=== PATIENT | female | born 1970 | race Caucasian/White ===

== ENCOUNTER 2021-03-25 18:53 | Emergency (ER) | payer MEDICAID, SELFPAY ==
--- NOTE | ~2021-03-25 | XR_ITS ---
EXAMINATION: XR FOOT, LEFT CLINICAL INFORMATION: Pain status post injury COMPARISON: None TECHNIQUE: AP, lateral, and oblique views of the left foot. FINDINGS: The bones and soft tissues are normal. No fracture. Alignment is anatomic. Joint spaces are maintained. XR/XR foot LT min 3V IMPRESSION: No evidence of an acute osseous injury.
[2021-03-25 22:05] VITALS: BP 157/90; PULSE 78; RESP 16; TEMP 36.9; O2SAT 98; BMI 26.7
--- NOTE | 2021-03-25 23:14 | ED_ITS ---
HPI - Extremity Injury (Lower) General Chief Complaint: Extremity Injury, Lower Stated Complaint: Toe injury Time Seen by Provider: 03/25/21 22:48 Source: patient Mode of arrival: ambulatory Limitations: no limitations History of Present Illness HPI Narrative: Patient presents to ED for left pinky toe pain since hitting against against object last week. Patient states toes erythematous with a dry wound. Patient denies any fever, chills, or elevation in glucose. Related Data Previous Rx's Medication Instructions Recorded cephalexin 500 mg capsule 500 mg PO QID #28 cap 03/25/21 doxycycline hyclate 100 mg tablet 100 mg PO BID #14 tab 03/25/21 Allergies Allergy/AdvReac Type Severity Reaction Status Date / Time No Known Allergies Allergy Verified 03/25/21 22:07 Review of Systems Constitutional: Constitutional: Reports as per HPI and Reports no additional constitutional complaints Eyes: Eyes: Reports as per HPI and Reports no additional eye complaints ENT: Reports system reviewed and no additional complaints, except as documented and Reports as per HPI Cardiovascular: Cardiovascular: Reports as per HPI and Reports no additional cardiovascular complaints Respiratory: Respiratory: Reports as per HPI and Reports no additional respiratory complaints Gastrointestinal: Gastrointestinal: Reports as per HPI and Reports no additional gastrointestinal complaints Genitourinary: Genitourinary: Reports no additional female genitourinary complaints and Reports as per HPI Musculoskeletal: Musculoskeletal: Reports no additional musculoskeletal compla ints and Reports as per HPI Comments: Left pinky pain Psychiatric: Psychiatric: Reports no additional psychiatric complaints and Reports as per HPI [facility] Social History Social History Advance Directives: No Advance Directives Information Provided: No Patient : No Physical Exam Vital Signs: Vital Signs: Last Vital Signs Temp 98.5 F 03/25/21 22:05 Pulse 78 03/25/21 22:05 Resp 16 03/25/21 22:05 BP 157/90 H 03/25/21 22:05 Pulse Ox 98 03/25/21 22:05 Body Mass Index 26.7 Const: General: cooperative, healthy appearing, comfortable, no acute distress, well developed, alert, awake and Physically active Orientation/consciousness: patient oriented x3 HENMT: Head: Yes normal to inspection, Yes No palpable skull fracture present, Yes normocephalic and Yes atraumatic Eyes: General: appearance normal, both eyes and all related structures Neck: Neck: Yes normal visual inspection, Yes full ROM, Yes no lymphade nopathy, Yes no meningeal signs, Yes trachea midline, Yes supple and No tender Chest: Chest palpation & inspection: normal inspection of the chest and normal palpation of entire chest wall Resp: Effort & Inspection: normal respiratory effort and able to speak in complete sentences Auscultation: clear to auscultation bilaterally Cardio: Jugular venous distension: no JVD Heart sounds: S1 normal heart sound present and S2 normal heart sound present GI: Inspection: Yes normal to inspection and No abdominal wall ecchymosis Palpation (GI): Soft to palpation, not firm, nontender, no guarding and not rig id : General: No CVA tenderness and Yes no CVA tenderness Back/Spine/Pelvis: Back: no CVA tenderness, No CVA tenderness and No back tenderness Skin: General skin exam: no rashes or lesions noted and elasticity normal Neuro: General: patient oriented x3, gait normal, no meningeal signs and CN's II-XI intact bilaterally Cranial nerves: Yes CN's II-XII intact bilaterally Extrem: General: Yes normal to inspection and Yes full ROM Ankle/foot/toe images: 1. erythema with dry ulcer/Wound negative for any pus discharge or foul odor. Vascular/motor/neuro exam intact Psych: Appearance: grossly normal, well kempt and not disheveled Course Course Course Narrative: Patient will be sent for x-rays for rule out fracture osteomyelitis. Reevaluation(s) Reevaluation #1: Vital signs are stable. No indication for labs. X-ray negative for fracture or osteo. Patient will be discharged with antibiotics informed to follow-up with wound clinic tomorrow Time: 23:20 MDM - Extremity Injury (Lower) MDM Narrative Medical decision making narrative: cellulitis Discharge Plan Discharge Clinical Impression: Cellulitis, Non-healing non-surgical wound Patient Disposition: Home, Self-Care Instructions: Cellulitis (ED) Additional Instructions: x-ray came back negative for fracture or osteomyelitis. Due to redness around toe and history of diabetes will be discharged with antibiotics. Recommend follow-up and call tomorrow with wound clinic. Please call the clinic. Return to the ED for any fever, chills, elevated glucose, worsening redness, pus discharge, foul odor, fever, chills, or any other concerning symptoms. Prescriptions: New cephalexin 500 mg capsule 500 mg PO QID Qty: 28 RF: 0 doxycycline hyclate 100 mg tablet 100 mg PO BID Qty: 14 RF: 0 Referrals: [facility] [Provider Group] - 2 days ( Please call tomorrow for follow-up with wound clinic.) Interventions: ED Discharge Assessment Last Done: 03/26/21 00:23 Discharge Date/Time: 03/26/21 00:53 Print Language: Upper Sorbian
== END 2021-03-26 00:53 | disposition home or self-care (01) ==
PROVIDERS: Emergency Provider Student in an Organized Health Care Education/Training Program
DX: L03.032 Cellulitis of left toe (principal); Z79.899 Other long term (current) drug therapy
CPT/HCPCS: 73630; 99283

== ENCOUNTER 2021-04-04 13:36 | Outpatient (RCR) | payer MEDICAID, SELFPAY | END 2021-08-15 15:07 | disposition home or self-care (01) | LOC: HO.WCC 13:36 | PROVIDERS: Visit Provider Surgery | DX: E11.621 Type 2 diabetes mellitus with foot ulcer (principal); S97.122D Crushing injury of left lesser toe(s), subsequent encounter; I70.292 Other atherosclerosis of native arteries of extremities, left leg; L60.2 Onychogryphosis; G40.909 Epilepsy, unspecified, not intractable, without status epilepticus; I10 Essential (primary) hypertension; F17.210 Nicotine dependence, cigarettes, uncomplicated | CPT/HCPCS: 97597; 99212; 99213 ==

== ENCOUNTER 2021-06-11 13:57 | Outpatient (REF) | payer MEDICAID, SELFPAY ==
--- NOTE | ~2021-06-11 | US_ITS ---
EXAMINATION: COLOR-FLOW DUPLEX IMAGING OF THE UNILATERAL LEFT LOWER EXTREMITY ARTERIAL SYSTEM. VELOCITY MEASUREMENTS THROUGHOUT THE FEMORAL ARTERIES WITH ANKLE-BRACHIAL PERIPHERAL ARTERIAL TESTING. Interventional Radiologist: Aaron Trevino M.D., F.S.I.R., F.A.C.R. CLINICAL INFORMATION: This a 51-year-old female with left leg wound. Peripheral arterial disease. TECHNIQUE: Color-flow duplex imaging with spectral waveform analysis was performed. Velocity measurement was obtained. LEFT FEMORAL RUNOFF VELOCITIES: The left common femoral artery measures 152 cm/s and biphasic. The left profunda femoral artery is 108 cm/s and is monophasic. Left proximal superficial femoral artery measures 79 cm/s and monophasic. Mid superficial femoral artery is 43 cm/s and monophasic. Distal left superficial femoral artery measures 32 cm/s and is monophasic. Left popliteal velocity measures 39 cm/s and is monophasic. The posterior tibial artery velocity measures 32 cm/s and was monophasic. The left ankle-brachial index is 0.59. The waveforms appear flattened. The left dorsalis pedis was in audible. The right ankle-brachial index is 1.01. US/US arterial duplex LE LT IMPRESSION: 1. Abnormal peripheral arterial testing with abnormal left ankle-brachial index and velocity measurements. 2. There is hemodynamically significant diffuse disease in the left superficial femoral artery extending downward with a decreased ankle-brachial index.
--- NOTE | ~2021-06-11 | US_ITS ---
EXAMINATION: COLOR-FLOW DUPLEX IMAGING OF THE UNILATERAL LEFT LOWER EXTREMITY ARTERIAL SYSTEM. VELOCITY MEASUREMENTS THROUGHOUT THE FEMORAL ARTERIES WITH ANKLE-BRACHIAL PERIPHERAL ARTERIAL TESTING. Interventional Radiologist: Aaron Trevino M.D., F.S.I.R., F.A.C.R. CLINICAL INFORMATION: This a 51-year-old female with left leg wound. Peripheral arterial disease. TECHNIQUE: Color-flow duplex imaging with spectral waveform analysis was performed. Velocity measurement was obtained. LEFT FEMORAL RUNOFF VELOCITIES: The left common femoral artery measures 152 cm/s and biphasic. The left profunda femoral artery is 108 cm/s and is monophasic. Left proximal superficial femoral artery measures 79 cm/s and monophasic. Mid superficial femoral artery is 43 cm/s and monophasic. Distal left superficial femoral artery measures 32 cm/s and is monophasic. Left popliteal velocity measures 39 cm/s and is monophasic. The posterior tibial artery velocity measures 32 cm/s and was monophasic. The left ankle-brachial index is 0.59. The waveforms appear flattened. The left dorsalis pedis was in audible. The right ankle-brachial index is 1.01. US/US KEREN complete IMPRESSION: 1. Abnormal peripheral arterial testing with abnormal left ankle-brachial index and velocity measurements. 2. There is hemodynamically significant diffuse disease in the left superficial femoral artery extending downward with a decreased ankle-brachial index.
== END 2021-06-11 13:58 | disposition home or self-care (01) ==
LOC: HO.US 13:57
PROVIDERS: Visit Provider Surgery
DX: I70.245 Atherosclerosis of native arteries of left leg with ulceration of other part of foot (principal); S97.1 Crushing injury of toe
CPT/HCPCS: 93923; 93926

== ENCOUNTER → 2021-06-28 09:26 | Outpatient (BNVA) | payer MEDICAID, SELFPAY | PROVIDERS: PCP General Practice; Visit Provider Surgery Vascular Surgery | DX: I73.9 Peripheral vascular disease, unspecified (principal) | CPT/HCPCS: 99202 ==

== ENCOUNTER 2021-07-04 06:57 | Day surgery (SDC) | payer MEDICAID, SELFPAY ==
[2021-07-04] VITALS (8 sets, daily range): BP systolic 107–126; BP diastolic 54–71; PULSE 71–83; RESP 16–18; TEMP 36.3–37.2; O2SAT 97–100; BMI 26.8
[2021-07-04 07:48] LABS: Glucose, Whole Blood 141 mg/dL (60-115)
[2021-07-04 08:02] LABS: MANUAL DIFF FLAG NO
[2021-07-04 08:12] LABS: Basophils Percent Auto 0.3 % (0-2); Eosinophils Absolute Auto 0.3 X10*3/uL (0.0-0.4); Eosinophils Percent Auto 4.2 % (0-4); Hematocrit 37.3 % (37.0-47.0); Hemoglobin 12.4 g/dl (12.0-16.0); Imm Gran Abs Auto 0.02 X10*3/uL (0.00-0.03); Imm Gran Pct Auto 0.3 % (0.0-0.4); Mean Corpuscular HGB Conc 33.2 g/dl (31.0-35.0); Mean Corpuscular Hemoglobin 31.6 pg (27.0-33.0); Mean Corpuscular Volume 95.2 fL (80.0-98.0); Mean Platelet Volume 11.1 fL (9.4-12.3); Monocytes Absolute Auto 0.5 X10*3/uL (0.1-1.2); Monocytes Percent Auto 7.6 % (2-11); Neutrophils Absolute Auto 4.1 x10*3/uL (2.0-8.3); Neutrophils Percent Auto 58.6 % (45-73); Platelet Count 179 X10*3/uL (160-400); Red Blood Count 3.92 X10*6/uL (4.20-5.50); Red Cell Distribution Width 13.3 % (11.0-16.0); White Blood Count 6.9 X10*3/uL (4.8-10.8)
[2021-07-04 08:20] LABS: Blood Urea Nitrogen 18 mg/dL (9-16); Creatinine Clr Calc Pharmacy 51.3; Estimated Glomerular Filt Rate 60
[2021-07-04] MEDS: 0.9 % Sodium Chloride 1,000 ML 100 ML IVCONT (08:23)
--- NOTE | 2021-07-04 11:28 | P.OP_ITS ---
Operative Note Operative Note Date of Service: 07/04/21 Narrative: Angiogram report from [facility] Preoperative diagnosis: Atherosclerosis of left lower extremity with nonhealing ulcer Postoperative diagnosis: Same Procedure: 1. Ultrasound-guided right common femoral access 2. Aortogram with left lower extremity runoff 3. Left SFA atherectomy and stent Surgeon:Brendon Franco M.D., FACS, RPVI Tower Supervisor:None Anesthesia: Local with moderate conscious sedation. Total intraservice moderate sedation time was 60 minutes. I monitored the patient's level of consciousness and physiologic status continuously throughout the procedure. Specimens:none Drains:none Estimated blood loss: Less than 10 ml Implant: VV 3 Protege Everflex 5 x 80 Indications: Very pleasant 51-year-old female with a nonhealing left lower extremity ulcer. She was found by the [facility] to have peripheral vascular disease. She now presents for endovascular intervention The patient has signed the informed consent after reviewing risks, complications, benefits, and alternatives previously discussed with the patient. The patient was given the opportunity to ask any additional questions or voice any concerns. All questions were answered to the patient's satisfaction. Procedure in detail: Patient was brought to the angiography suite prior to which a time-out was called for patient identification and site verification. Bilateral groins were prepped and draped in the standard surgical fashion. Under ultrasound guidance right common femoral was punctured with micro puncture needle and wire. Subsequently a precision 4 Chinese sheath was then placed. Bentson wire was advanced to the level of the aorta. 4 Chinese Flush catheter was brought up and parked at the level of the renal arteries. Aortogram was then undertaken. Catheter was brought down to the level of the iliac bifurcation. Iliacs were subsequently imaged. Catheter was then brought in up and over to the left side SFA. Runoff study was then undertaken. At this time there was a mid to distal SFA total occlusion at recognized. 4000 units of systemic heparin was administered. After 5 minutes of circulation time up and over 6 Chinese sheath was then placed. We were able to traverse the lesion with an 035 glidewire Advantage wire. Once this was accomplished we then advanced a now be cross catheter. Once across we then flushed contrast through to in short true lumen. At this time we exchanged out for a spider FX wire 5 Chinese. We then performed 5 Chinese atherectomy in the left distal SFA. Multiple unidirectional passes were undertaken. There was still some residual stenosis noted. Once this was accomplished we then plasty this with a 5 x 80 balloon. We subsequently placed a 5 x 80 stent which was self expanding. Completion angiogram was undertaken. Excellent result was achieved. Catheter wire sheath was brought back to the ipsilateral side. StarClose closure device was then deployed. Interpretation of films: 1. Ultrasound demonstrates appropriate femoral puncture. Image of which was saved. 2. Aortogram demonstrates appropriate caliber aorta. Minimal disease. Appropriate take-off of the renals. 3. Iliac images demonstrate mild tortuosity very small caliber 4. Left Leg Common femoral artery: No significant disease Profundus Femoris: No significant disease Superficial femoral artery: Proximal 2/3 was patent then a total occlusion with reconstitution at the above knee popliteal Popliteal artery (p1,p2,p3): Patent Anterior tibial artery: Patent Peroneal artery: Present but very small in caliber and diminutive Posterior tibial artery: Patent Dorsalis pedis/plantar arch: Incomplete Conclusion: 1. Successful atherectomy and stent of left SFA 2. Anticoagulation status: Will require 6 months of aspirin and Plavix This note is constructed using voice recognition software. While every effort has been made to ensure accuracy, senior data integration developer errors may have been included. Thank you for allowing me to participate in the care of your patient. Yours sincerely, Brendon Franco MD, FACS, R.P.V.I.
== END 2021-07-04 13:30 | disposition home or self-care (01) ==
PROVIDERS: Visit Provider Surgery Vascular Surgery
DX: E11.51 Type 2 diabetes mellitus with diabetic peripheral angiopathy without gangrene (principal); L97.529 Non-pressure chronic ulcer of other part of left foot with unspecified severity; I70.245 Atherosclerosis of native arteries of left leg with ulceration of other part of foot; Z79.84 Long term (current) use of oral hypoglycemic drugs; I10 Essential (primary) hypertension; F41.1 Generalized anxiety disorder; R56.9 Unspecified convulsions; E78.00 Pure hypercholesterolemia, unspecified; F17.210 Nicotine dependence, cigarettes, uncomplicated; Z79.899 Other long term (current) drug therapy
CPT/HCPCS: 36415; 37226; 37227; 76937; 82565; 82947; 84520; 85025; 99152; 99153; C1714; C1725; C1760; C1769; C1876; C1884; C1887; J2250; J3010; Q9967

== ENCOUNTER 2021-12-06 14:57 | Outpatient (REF) | payer MEDICAID, SELFPAY ==
--- NOTE | ~2021-12-06 | US_ITS ---
EXAMINATION: US abdominal wall, LIMITED/FOLLOW UP CLINICAL INFORMATION: Palpable mass COMPARISON: CT of the abdomen and pelvis October 2010 TECHNIQUE: Grayscale and color imaging of the anterior abdominal wall the right lower quadrant was performed using a linear transducer. FINDINGS: Palpable abnormality corresponds to 3 calcified lesions measuring 1.9 x 0.9 x 0.9 cm, 0.8 cm and 0.5 cm in the superficial abdominal wall subcutaneous fat just deep to the skin. This is a new finding compared to previous CT from 2010 US/US pelvic limited IMPRESSION: Palpable abnormality corresponds to 3 calcified masses in the subcutaneous fat of the anterior abdominal wall, largest measuring 1.3 x 0.9 x 0.9 cm. This is a new finding from previous CT of the abdomen and pelvis from 2010. This may represent postsurgical change or fat necrosis. Correlation with patient's clinical history i.e. has there been previous surgery in this region recommended. This could be further evaluated with CT if clinically indicated.
== END 2021-12-06 14:58 | disposition home or self-care (01) ==
LOC: HO.US 14:57
PROVIDERS: Visit Provider General Practice
DX: R22.2 Localized swelling, mass and lump, trunk (principal)
CPT/HCPCS: 76857

== ENCOUNTER → 2022-01-10 12:24 | Outpatient (BNVA) | payer MEDICAID, SELFPAY | PROVIDERS: PCP General Practice; Referring Provider General Practice; Visit Provider Surgery | DX: R10.9 Unspecified abdominal pain (principal); I73.9 Peripheral vascular disease, unspecified; R22.9 Localized swelling, mass and lump, unspecified; R56.9 Unspecified convulsions; I10 Essential (primary) hypertension; E11.9 Type 2 diabetes mellitus without complications; F17.200 Nicotine dependence, unspecified, uncomplicated; Z79.02 Long term (current) use of antithrombotics/antiplatelets | CPT/HCPCS: 99202 ==

== ENCOUNTER 2022-01-18 08:53 | Outpatient (REF) | payer MEDICAID, SELFPAY ==
--- NOTE | ~2022-01-18 | CT_ITS ---
EXAMINATION: CT ABDOMEN AND PELVIS WITHOUT CONTRAST CLINICAL INFORMATION: Abdominal pain. COMPARISON: None. TECHNIQUE: Multidetector volumetric imaging was performed from the superior aspect of the liver through the pubic symphysis with oral contrast. Sagittal and coronal reformatted images were obtained on the technologist's workstation. This CT examination was performed using dose optimization techniques as appropriate, variously including the following: *Automated exposure control *Adjustment of mA and/or kV according to patient size (this includes techniques or standardized protocols for targeted exams where dose is matched to indication/reason for exam; i.e. extremities or head) *Use of iterative reconstruction technique DLP: 491 mGy-cm FINDINGS: LUNG BASES: The visualized lung bases are unremarkable. LIVER, GALLBLADDER, AND BILIARY TREE: The liver is normal in size, shape, and attenuation. No focal hepatic lesion or biliary ductal dilatation is present. The gallbladder is unremarkable with no evidence of radiopaque gallstones, gallbladder wall thickening, or obvious pericholecystic inflammatory changes. PANCREAS: Unremarkable. SPLEEN: Unremarkable. ADRENAL GLANDS: Unremarkable. KIDNEYS AND URETERS: The kidneys are normal in size, shape, and attenuation. No hydronephrosis, hydroureter, or calculi seen. No perinephric stranding. BLADDER: Unremarkable. GASTROINTESTINAL TRACT: There is a large amount of stool seen in the colon without significant distention. The appendix is normal caliber. Oral contrast opacified small bowel loops are normal. The stomach is nondistended. ABDOMINAL WALL: Small umbilical hernia containing fat. LYMPH NODES: Normal. VASCULAR: Unremarkable. PELVIC VISCERA: There is a 4.9 x 3.5 cm lesion of the right adnexa measuring 9.78 Hounsfield units, likely ovarian cyst. There is no free fluid in the pelvis. The uterus is retroverted. OSSEOUS STRUCTURES: Mild facet joint degenerative changes at L4-L5 disc level with moderate hypertrophy. CT/CT abdomen pelvis wo con IMPRESSION: Moderate sized right adnexal cyst, likely ovarian origin. Mild constipation. No obstruction seen. Fleischner guidelines were followed.
== END 2022-01-18 08:54 | disposition home or self-care (01) ==
LOC: HO.CT 08:53
PROVIDERS: Visit Provider Surgery
DX: R10.9 Unspecified abdominal pain (principal); F17.200 Nicotine dependence, unspecified, uncomplicated
CPT/HCPCS: 74176

== ENCOUNTER → 2022-01-31 13:44 | Outpatient (BNVA) | payer MEDICAID, SELFPAY | PROVIDERS: PCP General Practice; Visit Provider Surgery | DX: R10.2 Pelvic and perineal pain (principal); R22.2 Localized swelling, mass and lump, trunk; I10 Essential (primary) hypertension; E11.9 Type 2 diabetes mellitus without complications; Z79.01 Long term (current) use of anticoagulants | CPT/HCPCS: 99212 ==

== ENCOUNTER → 2022-04-02 10:11 | Outpatient (BNVA) | payer MEDICAID, SELFPAY | PROVIDERS: PCP General Practice; Visit Provider Nurse Practitioner Family | DX: Z12.11 Encounter for screening for malignant neoplasm of colon (principal) | CPT/HCPCS: 99202 ==

== ENCOUNTER 2023-01-09 15:56 | Inpatient (IN) | payer MEDICAID, SELFPAY ==
--- NOTE | ~2023-01-09 | US_ITS ---
EXAMINATION: US ABDOMEN LIMITED CLINICAL INFORMATION: Right upper quadrant pain. COMPARISON: None available. TECHNIQUE: Real-time imaging of the right upper quadrant abdominal viscera. FINDINGS: GALLBLADDER: Normal. The gallbladder is physiologically distended without evidence of stones, sludge, polyps, wall thickening or pericholecystic fluid. COMMON BILE DUCT: Normal in caliber measuring 0.2 cm in diameter. Partially imaged liver appears echogenic suggestive of hepatic steatosis or underlying liver disease. This could be further characterized with a dedicated right upper quadrant ultrasound if clinically indicated. US/US abdomen limited IMPRESSION: No cholelithiasis or evidence of acute cholecystitis. Partially imaged liver appears echogenic suggestive of hepatic steatosis or underlying liver disease. This could be further characterized with a dedicated right upper quadrant ultrasound if clinically indicated.
--- NOTE | ~2023-01-09 | CT_ITS ---
EXAMINATION: CT ABDOMEN AND PELVIS WITHOUT CONTRAST CLINICAL INFORMATION: Abdominal pain. COMPARISON: Abdominal ultrasound dated 01/09/2023; CT abdomen and pelvis dated 02/18/2022. TECHNIQUE: Multidetector volumetric imaging was performed from the superior aspect of the liver through the pubic symphysis. Sagittal and coronal reformatted images were obtained on the technologist's workstation. This CT examination was performed using dose optimization techniques as appropriate, variously including the following: *Automated exposure control *Adjustment of mA and/or kV according to patient size (this includes techniques or standardized protocols for targeted exams where dose is matched to indication/reason for exam; i.e. extremities or head) *Use of iterative reconstruction technique DLP: 405 mGy-cm FINDINGS: LUNG BASES: The visualized lung bases are unremarkable. LIVER, GALLBLADDER, AND BILIARY TREE: The liver is normal in size and shape. There is geographic hepatic steatosis. No focal hepatic lesion or biliary ductal dilatation is present. The gallbladder is unremarkable, with no evidence of radiopaque gallstones, gallbladder wall thickening or obvious pericholecystic inflammatory change. PANCREAS: There is interim appearance of circumferential pancreatic fat stranding and possible trace acute peripancreatic fluid. No focal pancreatic mass or ductal dilatation are seen. SPLEEN: Unremarkable. ADRENAL GLANDS: Unremarkable. KIDNEYS AND URETERS: The kidneys are normal in size, shape, and attenuation. No hydronephrosis, hydroureter, or calculi seen. No perinephric stranding. BLADDER: Unremarkable. GASTROINTESTINAL TRACT: The small and large bowel are unremarkable. The appendix is unremarkable. ABDOMINAL WALL: There is a small fat-containing umbilical hernia. LYMPH NODES: Normal. VASCULAR: There is mild aortoiliac atherosclerotic calcification. No abdominal aortic aneurysm is seen. PELVIC VISCERA: The uterus and left ovary are unremarkable. The right ovary contains a 4.9 x 3.0 x 3.9 cm simple appearing cyst with precontrast Hounsfield value of 8.6 units (3:61 and 6:62). OSSEOUS STRUCTURES: There is mild degenerative disc disease at L4-L5. No acute or aggressive osseous abnormality is seen. CT/CT abdomen pelvis wo IV con IMPRESSION: 1. Findings are consistent with acute pancreatitis, with vigorous peripheral pancreatic fat stranding and slight acute fluid collections. There is no mass or ductal dilatation. No pseudocyst formation is seen. No focal pancreatic necrosis is seen with certainty on imaging performed without the benefit of intravenous contrast. 2. There is geographic hepatic steatosis. 3. No bowel obstruction, free intraperitoneal air or abscess is seen. There is no appendicitis or diverticulitis. 4. There is no urinary calculus or obstructive uropathy. 5. A 4.9 cm simple right ovarian cyst is seen. This is a benign finding in the physiologic size range and requires no imaging follow-up. 6. There is mild degenerative disc disease at L4-L5. No acute or aggressive osseous lesion is seen. Fleischner guidelines were followed.
[2023-01-09 15:58] VITALS: PULSE 109; RESP 30; TEMP 36.6; O2SAT 99
--- NOTE | 2023-01-09 15:59 | ECG_ITS ---
Test Reason : WEAKNESS Blood Pressure : / mmHG Vent. Rate : 087 BPM Atrial Rate : 087 BPM P-R Int : 160 ms QRS Dur : 062 ms QT Int : 370 ms P-R-T Axes : 073 019 047 degrees QTc Int : 445 ms Normal sinus rhythm Possible Left atrial enlargement Septal infarct , age undetermined Abnormal ECG When compared with ECG of 07-AUG-2003 14:34, Septal infarct is now Present Referred By: Dimitri Haji Electronically Signed By:Otf Miller
--- NOTE | 2023-01-09 16:01 | ED.GENADULT ---
HPI - General Adult General Chief complaint: Seizure Stated complaint: abd pain vomiting Time Seen by Provider: 01/09/23 18:00 Source: patient and family Mode of arrival: ambulatory History of Present Illness HPI narrative: 52-year-old female who is a known diabetic and has hypertension as well as a history of seizures arrives and history is provided primarily by her significant other who states that she has been having abdominal pain and vomiting for the past 2-3 days, he denies any fevers or chills, she is lethargic and does not provide much history other than having right-sided pain. Patient is also had 3 seizures today and takes Dilantin. Related Data Home Medications Medication Instructions Recorded Confirmed albuterol sulfate 90 mcg/actuation 2 puff PO Q4H PRN Wheezing 07/04/21 04/02/22 aerosol inhaler (ProAir HFA) fluticasone propionate 110 1 puff inhalation BID 07/04/21 04/02/22 mcg/actuation HFA aerosol inhaler (Flovent HFA) gabapentin 100 mg capsule 1 cap PO BID 07/04/21 04/02/22 lisinopril 10 1 tab PO DAILY 07/04/21 04/02/22 mg-hydrochlorothiazide 12.5 mg tablet metformin 500 mg tablet 1 tab PO BID 07/04/21 04/02/22 phenytoin sodium extended 100 mg 1 cap PO Q8H 07/04/21 04/02/22 capsule sertraline 50 mg tablet 1 tab PO DAILY 07/04/21 04/02/22 omeprazole 20 mg capsule,delayed 20 mg PO DAILY 04/02/22 04/02/22 release atorvastatin 40 mg tablet 40 mg PO DAILY 01/09/23 ibuprofen 600 mg tablet 600 mg PO Q6-8H PRN low back pain 01/09/23 multivitamin (One Daily 1 tab PO DAILY 01/09/23 Multivitamin tablet) Allergies Allergy/AdvReac Type Severity Reaction Status Date / Time No Known Allergies Allergy Verified 01/09/23 16:08 Review of Systems Review of Systems: Pertinent positives and negatives as stated in HPI [facility] Past Medical History Source: nursing notes reviewed Medical History Anxiety Diabetes Hypercholesteremia Hypertension Seizures Surgical History H/O skin graft Social History Social History Alcohol intake: never Patient Tobacco Use Status: Current everyday Tobacco user Cigarettes Per Day: 2 Years Smoked: 5 years Smoked in Last 30 Days: No Use of substances other than those prescribed or required for medical reasons: No Advance Directives: No Advance Directives Information Provided: Yes Patient : No Physical Exam ED Vital Signs: Vital Signs - 24 hr 01/09/23 15:58 01/09/23 17:46 Temperature 98 F 97.9 F Pulse Rate 109 H 73 Respiratory Rate 30 H 12 Blood Pressure 143/76 H Pulse Oximetry 99 98 Oxygen Delivery Method Room Air Room Air BMI result Body Mass Index 30.0 VITAL SIGNS: Reviewed. GENERAL: Well developed, well nourished, in moderate distress. HEAD: Normocephalic/atraumatic EYES: PERRLA, EOMI EARS: Ext canals without abnormality NOSE: Nares patent bilateral OROPHARYNX: no oral lesions noted, posterior pharynx clear, dry mucosa NECK: Supple, no adenopathy LUNGS: Normal breath sounds. No adventitious sounds or accessory muscle use. SpO2<98> CARDIOVASCULAR: Regular rate and rhythm without noted murmurs ABDOMEN: Soft, non-tender, non-distended with bowel sounds. No rigidity. No guarding. No palpable masses or hernias noted MUSCULOSKELETAL: No tenderness, deformities, or effusions noted on gross inspection. EXTREMITIES: No cyanosis, clubbing or edema. SKIN: Inspection of the skin reveals no rashes, ulcerations, jaundice, pallor, or petechiae. NEUROLOGIC: Alert and oriented x 4. Strength and sensation to light touch were grossly intact x 4. Course Course Course Narrative: This is an RME: Additional HPI, ROS, PE not included below will be deferred to primary provider. 52 year old female hx of PAD, DM, HTN , SZS on phenytoin presenting w/ sever abdominal pain RLQ X1 week worsening over the past three days. Comes into triage stating shes having a seizure w/ tonic clonic movements but answering questions. Reports med compliance with phenytoin. Patient is screaming the wheel chair and stating shes in terrible pain Spoke to charge who will try to bring patient back when beds become available When labs resulted again spoke to charge and asked for patient to go back ? DKA Medications Administered Generic Name Dose Route Start Last Admin Trade Name Freq PRN Reason Stop Dose Admin Sodium Chloride 1,632.93 mls @ 1,632.93 mls/hr 01/09/23 18:36 01/09/23 18:46 Ns 30 ml/kg infuse over 1 hr (1632.93 ml) 01/09/23 19:35 1,632.93 mls/hr IV Administration .Q1H STA Discontinued Medications Generic Name Dose Route Start Last Admin Trade Name Freq PRN Reason Stop Dose Admin Piperacillin Sod/Tazobactam 50 mls @ 100 mls/hr 01/09/23 18:37 01/09/23 19:01 Sod 3.375 gm/ Sodium Chloride IV 01/09/23 19:06 100 mls/hr ONCE ONE Administration Lorazepam 2 mg 01/09/23 15:58 01/09/23 16:05 Lorazepam 1 Mg Tablet PO 01/09/23 15:59 2 mg ONCE ONE Administration Morphine Sulfate 4 mg 01/09/23 16:03 01/09/23 18:44 Morphine Sulfate 4 Mg/Ml Cartridge IVPUSH 01/09/23 16:04 Not Given ONCE ONE Protocol Medical Decision Making Medical Decision Making [facility] Narrative: 1809: 32-year-old female with history and clinical presentation most concerning for DKA, profound dehydration and suspicion for cholangitis with associated pancreatitis. Some delay in obtaining venous access due to current medical states but ultrasound peripheral IV was successfully obtained in the right upper extremity. Initiated normal saline boluses, Zosyn, lactic acid and blood cultures have been sent. Morphine and Ativan were discontinued, patient was noted to be significantly hypokalemic so with holding insulin at this time and will focus on repletion of potassium prior to initiation of the insulin as well as focusing on rehydration. 1858: I discussed the case with the regulatory affairs analyst who accepts admission, understands that we are holding the insulin at this time and focusing on potassium repletion and rehydration in addition to obtaining an ultrasound of the right upper quadrant. I reviewed all investigations and my interpretation is that patient has profound DKA with dehydration and pancreatitis, significant other at bedside states that patient has known gallstones so suspect biliary pancreatitis, there is a mild leukocytosis that I suspect may be more related with dehydration state as patient is afebrile. Patient also has obvious AYANNA with hypokalemia Differential Diagnosis Cholecystitis, cholangitis, DKA, HHS, gastroenteritis. Admission/Observation Consideration of admission/observation: Escalation of care including admission/observation considered Consult Healthcare Provider Management of the patient was discussed with: Clinical Research Nurse Coordinator Please see the discussion above Lab Data Please see the discussion above 01/09/23 16:58 01/09/23 16:58 Labs: Lab Results 01/09/23 01/09/23 01/09/23 Range/Units 16:19 16:57 16:58 WBC (4.8-10.8) X10*3/uL RBC (4.20-5.50) X10*6/uL Hgb (12.0-16.0) g/dl Hct (37.0-47.0) % MCV (80.0-98.0) fL MCH (27.0-33.0) pg MCHC (31.0-35.0) g/dl RDW (11.0-16.0) % Plt Count (160-400) X10*3/uL MPV (9.4-12.3) fL Immature Gran % (Auto) (0.0-0.4) % Neut % (Auto) (45-73) % Lymph % (Auto) (20-40) % [place] % (Auto) (2-11) % Eos % (Auto) (0-4) % Baso % (Auto) (0-2) % Lymph # (Auto) (1.2-4.9) X10*3/uL [place] # (Auto) (0.1-1.2) X10*3/uL Eos # (Auto) (0.0-0.4) X10*3/uL Baso # (Auto) (0.0-0.2) X10*3/uL Abs Immat Gran (auto) (0.00-0.03) X10*3/uL Absolute Neuts (auto) (2.0-8.3) x10*3/uL Absolute Nucleated RBC (0.0-0.012) X10*3/uL Nucleated RBC % (auto) (0.0-0.2) /100WBC Sodium 127 L (135-145) mmol/L Potassium 2.7 L (3.3-5.1) mmol/L Chloride 91 L (96-108) mmol/L Carbon Dioxide 18 L (22-29) mmol/L Anion Gap 21 H (12-20) BUN 19 H (9-16) mg/dL Creatinine 1.45 H (0.5-1.4) mg/dL Estim Creat Clear Calc 28.2 Estimated GFR 38 Random Glucose 701 H* (60-115) mg/dL Lactic Acid 2.6 H* (0.5-2.0) mmol/L Calcium 10.3 H (8.4-10.2) mg/dL Magnesium 2.3 (1.6-2.6) mg/dL Total Bilirubin 0.4 (0.0-1.0) mg/dL AST 22 (5-31) U/L ALT 24 (0-31) U/L Alkaline Phosphatase 146 H (39-117) U/L Total Creatine Kinase 91 (26-140) U/L Total Protein 8.6 H (6.5-8.0) g/dL Albumin 4.3 (3.5-5.0) g/dL Lipase 844 H (8-78) U/L Beta HCG, Quant mIU/mL Urine Color Urine Appearance Urine pH (5.0-9.0) Ur Specific [place] (1.005-1.025) Urine Protein (Neg-Trace) mg/dL Urine Glucose (UA) (Negative) mg/dL Urine Ketones (Negative) mg/dL Urine Blood (Negative) Urine Nitrite (Negative) Ur Leukocyte Esterase (Negative) Urine RBC (0-2) /HPF Urine WBC (0-5) /HPF Ur Squamous Epith Cells (0-2) /HPF Urine Bacteria (None Seen) Hyaline Casts (0-2) /LPF Urine Opiates Screen (Not Detect) Urine Fentanyl Screen (Not Detect) Ur Barbiturates Screen (Not Detect) Ur Phencyclidine Scrn (Not Detect) Ur Amphetamines Screen (Not Detect) U Benzodiazepines Scrn (Not Detect) Urine Cocaine Screen (Not Detect) U Marijuana (THC) Screen (Not Detect) Ethyl Alcohol mg/dL B-Hydroxybutyrate (0.02-0.27) mmol/L COVID-19 (RENEE) Negative (Negative) COVID-19 Clin Com See Note 01/09/23 01/09/23 01/09/23 Range/Units 16:58 16:59 16:59 WBC 12.1 H (4.8-10.8) X10*3/uL RBC 3.86 L (4.20-5.50) X10*6/uL Hgb 11.8 L (12.0-16.0) g/dl Hct 32.9 L (37.0-47.0) % MCV 85.2 (80.0-98.0) fL MCH 30.6 (27.0-33.0) pg MCHC 35.9 H (31.0-35.0) g/dl RDW 12.3 (11.0-16.0) % Plt Count 240 D (160-400) X10*3/uL MPV 11.6 (9.4-12.3) fL Immature Gran % (Auto) 0.6 H (0.0-0.4) % Neut % (Auto) 82.5 H (45-73) % Lymph % (Auto) 11.9 L (20-40) % [place] % (Auto) 4.6 (2-11) % Eos % (Auto) 0.1 (0-4) % Baso % (Auto) 0.3 (0-2) % Lymph # (Auto) 1.4 (1.2-4.9) X10*3/uL [place] # (Auto) 0.6 (0.1-1.2) X10*3/uL Eos # (Auto) 0.0 (0.0-0.4) X10*3/uL Baso # (Auto) 0.0 (0.0-0.2) X10*3/uL Abs Immat Gran (auto) 0.07 H (0.00-0.03) X10*3/uL Absolute Neuts (auto) 10.0 H (2.0-8.3) x10*3/uL Absolute Nucleated RBC 0.000 (0.0-0.012) X10*3/uL Nucleated RBC % (auto) 0.0 (0.0-0.2) /100WBC Sodium (135-145) mmol/L Potassium (3.3-5.1) mmol/L Chloride (96-108) mmol/L Carbon Dioxide (22-29) mmol/L Anion Gap (12-20) BUN (9-16) mg/dL Creatinine (0.5-1.4) mg/dL Estim Creat Clear Calc Estimated GFR Random Glucose (60-115) mg/dL Lactic Acid (0.5-2.0) mmol/L Calcium (8.4-10.2) mg/dL Magnesium 2.4 (1.6-2.6) mg/dL Total Bilirubin (0.0-1.0) mg/dL AST (5-31) U/L ALT (0-31) U/L Alkaline Phosphatase (39-117) U/L Total Creatine Kinase (26-140) U/L Total Protein (6.5-8.0) g/dL Albumin (3.5-5.0) g/dL Lipase (8-78) U/L Beta HCG, Quant 7 mIU/mL Urine Color Urine Appearance Urine pH (5.0-9.0) Ur Specific [place] (1.005-1.025) Urine Protein (Neg-Trace) mg/dL Urine Glucose (UA) (Negative) mg/dL Urine Ketones (Negative) mg/dL Urine Blood (Negative) Urine Nitrite (Negative) Ur Leukocyte Esterase (Negative) Urine RBC (0-2) /HPF Urine WBC (0-5) /HPF Ur Squamous Epith Cells (0-2) /HPF Urine Bacteria (None Seen) Hyaline Casts (0-2) /LPF Urine Opiates Screen (Not Detect) Urine Fentanyl Screen (Not Detect) Ur Barbiturates Screen (Not Detect) Ur Phencyclidine Scrn (Not Detect) Ur Amphetamines Screen (Not Detect) U Benzodiazepines Scrn (Not Detect) Urine Cocaine Screen (Not Detect) U Marijuana (THC) Screen (Not Detect) Ethyl Alcohol < 10 mg/dL B-Hydroxybutyrate 3.01 H (0.02-0.27) mmol/L COVID-19 (RENEE) (Negative) COVID-19 Clin Com 01/09/23 01/09/23 Range/Units 17:22 17:22 WBC (4.8-10.8) X10*3/uL RBC (4.20-5.50) X10*6/uL Hgb (12.0-16.0) g/dl Hct (37.0-47.0) % MCV (80.0-98.0) fL MCH (27.0-33.0) pg MCHC (31.0-35.0) g/dl RDW (11.0-16.0) % Plt Count (160-400) X10*3/uL MPV (9.4-12.3) fL Immature Gran % (Auto) (0.0-0.4) % Neut % (Auto) (45-73) % Lymph % (Auto) (20-40) % [place] % (Auto) (2-11) % Eos % (Auto) (0-4) % Baso % (Auto) (0-2) % Lymph # (Auto) (1.2-4.9) X10*3/uL [place] # (Auto) (0.1-1.2) X10*3/uL Eos # (Auto) (0.0-0.4) X10*3/uL Baso # (Auto) (0.0-0.2) X10*3/uL Abs Immat Gran (auto) (0.00-0.03) X10*3/uL Absolute Neuts (auto) (2.0-8.3) x10*3/uL Absolute Nucleated RBC (0.0-0.012) X10*3/uL Nucleated RBC % (auto) (0.0-0.2) /100WBC Sodium (135-145) mmol/L Potassium (3.3-5.1) mmol/L Chloride (96-108) mmol/L Carbon Dioxide (22-29) mmol/L Anion Gap (12-20) BUN (9-16) mg/dL Creatinine (0.5-1.4) mg/dL Estim Creat Clear Calc Estimated GFR Random Glucose (60-115) mg/dL Lactic Acid (0.5-2.0) mmol/L Calcium (8.4-10.2) mg/dL Magnesium (1.6-2.6) mg/dL Total Bilirubin (0.0-1.0) mg/dL AST (5-31) U/L ALT (0-31) U/L Alkaline Phosphatase (39-117) U/L Total Creatine Kinase (26-140) U/L Total Protein (6.5-8.0) g/dL Albumin (3.5-5.0) g/dL Lipase (8-78) U/L Beta HCG, Quant mIU/mL Urine Color Yellow Urine Appearance Clear Urine pH 6.5 (5.0-9.0) Ur Specific [place] >= 1.030 H (1.005-1.025) Urine Protein 30 (1+) H (Neg-Trace) mg/dL Urine Glucose (UA) >=1000 H (Negative) mg/dL Urine Ketones 15 (Negative) mg/dL Urine Blood Negative (Negative) Urine Nitrite Negative (Negative) Ur Leukocyte Esterase Negative (Negative) Urine RBC 0-2 (0-2) /HPF Urine WBC 0-5 (0-5) /HPF Ur Squamous Epith Cells 0-2 (0-2) /HPF Urine Bacteria None Seen (None Seen) Hyaline Casts 0-2 (0-2) /LPF Urine Opiates Screen Not Detected (Not Detect) Urine Fentanyl Screen Not Detected (Not Detect) Ur Barbiturates Screen POSITIVE H (Not Detect) Ur Phencyclidine Scrn Not Detected (Not Detect) Ur Amphetamines Screen Not Detected (Not Detect) U Benzodiazepines Scrn Not Detected (Not Detect) Urine Cocaine Screen Not Detected (Not Detect) U Marijuana (THC) Screen POSITIVE H (Not Detect) Ethyl Alcohol mg/dL B-Hydroxybutyrate (0.02-0.27) mmol/L COVID-19 (RENEE) (Negative) COVID-19 Clin Com Independent Interpretation I performed an independent interpretation of an: EKG Interpretation: Normal sinus rhythm, HR-87, no STEMI, SC/QRS/QTC are within normal limits. Independent Historian Clinical information obtained from an independent historian. History obtained from or confirmed by: Spouse External Record Review External record reviewed: Office record, Outpatient record and Prior outpatient labs Chronic Conditions Patient?s care impacted by: Diabetes and Hypertension Critical Care Time Critical Care Time Critical Care Time: Yes Total Critical Care Time: 45 Attestation: I personally attest to this time spent taking care of the patient. Discharge Plan Discharge Clinical Impression: DKA (diabetic ketoacidosis), Biliary acute pancreatitis, Hypokalemia, Dehydration Patient Disposition: Admitted As Inpatient
[2023-01-09] MEDS: LORazepam 1 MG TABLET 2 MG PO (16:05)
--- NOTE | 2023-01-09 16:09 | MHC.EDTECH ---
pt currently vomiting and uncontrollably shaking in triage. unable to perform EKG and blood work at this time. grinder operator external tool aware
[2023-01-09 17:06] LABS: MANUAL DIFF FLAG NO
[2023-01-09 17:09] LABS: Basophils Percent Auto 0.3 % (0-2); Eosinophils Percent Auto 0.1 % (0-4); Hematocrit 32.9 % (37.0-47.0); Hemoglobin 11.8 g/dl (12.0-16.0); Imm Gran Abs Auto 0.07 X10*3/uL (0.00-0.03); Imm Gran Pct Auto 0.6 % (0.0-0.4); Lymphocytes Absolute Auto 1.4 X10*3/uL (1.2-4.9); Lymphocytes Percent Auto 11.9 % (20-40); Mean Corpuscular HGB Conc 35.9 g/dl (31.0-35.0); Mean Corpuscular Hemoglobin 30.6 pg (27.0-33.0); Mean Corpuscular Volume 85.2 fL (80.0-98.0); Mean Platelet Volume 11.6 fL (9.4-12.3); Monocytes Absolute Auto 0.6 X10*3/uL (0.1-1.2); Monocytes Percent Auto 4.6 % (2-11); Neutrophils Percent Auto 82.5 % (45-73); Platelet Count 240 X10*3/uL (160-400); Red Blood Count 3.86 X10*6/uL (4.20-5.50); Red Cell Distribution Width 12.3 % (11.0-16.0); White Blood Count 12.1 X10*3/uL (4.8-10.8)
[2023-01-09 17:25] LABS: Ethanol < 10 mg/dL
[2023-01-09 17:28] LABS: Appearance Urine Clear; Color Urine Yellow; Glucose Urine UA >=1000 mg/dL (Negative); Leukocyte Esterase Urine Negative (Negative); Nitrite Urine Negative (Negative); PH 6.5 (5.0-9.0); Specific Gravity - Urine >= 1.030 (1.005-1.025); UMIC TRIGGER UACC YES; Urine Blood Negative (Negative); Urine Ketones 15 mg/dL (Negative); Urine Protein 30 (1+) mg/dL (Neg-Trace)
[2023-01-09 17:28] LABS: COVID-19 Test Negative (Negative); IDNOW Serial# BCCEAD1C
[2023-01-09 17:33] LABS: Bacteria Urine None Seen (None Seen); Hyaline Casts Urine 0-2 /LPF (0-2); RBC Urine 0-2 /HPF (0-2); Squamous Epithelial Cell Urine 0-2 /HPF (0-2); WBC Urine 0-5 /HPF (0-5)
[2023-01-09 17:34] LABS: Lactic Acid 2.6 mmol/L (0.5-2.0)
[2023-01-09 17:34] LABS: HCG Quantitative 7 mIU/mL
[2023-01-09 17:35] LABS: Alanine Aminotransferase 24 U/L (0-31); Albumin Level 4.3 g/dL (3.5-5.0); Alkaline Phosphatase 146 U/L (39-117); Anion Gap 21 (12-20); Aspartate Amino Transferase 22 U/L (5-31); Bilirubin Total 0.4 mg/dL (0.0-1.0); Blood Urea Nitrogen 19 mg/dL (9-16); Calcium 10.3 mg/dL (8.4-10.2); Carbon Dioxide 18 mmol/L (22-29); Chloride 91 mmol/L (96-108); Creatinine Clr Calc Pharmacy 28.2; Estimated Glomerular Filt Rate 38; Glucose Random 701 mg/dL (60-115); Magnesium 2.3 mg/dL (1.6-2.6); Potassium 2.7 mmol/L (3.3-5.1); Sodium 127 mmol/L (135-145); Total Protein 8.6 g/dL (6.5-8.0)
[2023-01-09 17:39] LABS: Lipase 844 U/L (8-78)
[2023-01-09 17:46] VITALS: BP 143/76; PULSE 73; RESP 12; TEMP 36.6; O2SAT 98
[2023-01-09 17:52] LABS: Amphetamine Screen Urine Not Detected (Not Detect); Barbiturates, Urine POSITIVE (Not Detect); Benzodiazepines Screen Urine Not Detected (Not Detect); Cannabinoid Screen Urine POSITIVE (Not Detect); Cocaine Screen Urine Not Detected (Not Detect); Fentanyl, urine Not Detected (Not Detect); Opiate Screen Urine Not Detected (Not Detect); Phencyclidine Screen Urine Not Detected (Not Detect)
[2023-01-09 18:29] LABS: Beta-Hydroxybutyrate 3.01 mmol/L (0.02-0.27); Magnesium 2.4 mg/dL (1.6-2.6)
[2023-01-09] MEDS: 0.9 % Sodium Chloride 1,632.93 ML 1632.93 ML IV (18:46)
[2023-01-09] MEDS: Piperacillin Sodium/Tazobactam 3.375 GM in 0.9 % Sodium Chloride 50 ML IV (19:01)
--- NOTE | 2023-01-09 19:01 | PC.NURSE ---
provider to bedside for ultrasound iv, pt difficult stick. access gained 20 RAC, fluids/antibiotics infusing per the mar. provider held insulin to replenish potassium at this time. pt arousable to verbal and painful stimuli. ultrasound at beside.
--- NOTE | 2023-01-09 19:03 | PC.NURSE ---
fluids infusing on pressure bag.
[2023-01-09 19:06] LABS: Reflex Lactate? Lactic Acid Added
[2023-01-09] MEDS: ondansetron HCL 4 MG/2 ML VIAL IVPUSH (19:22)
--- NOTE | 2023-01-09 19:42 | PHA.MEDREC ---
Pharmacy Consult ? Medication Reconciliation Pharmacy has completed the medication reconciliation.Pt unable to confirm her name for the lead quality control technician taking her to [place] and her family member doesn't know what medications she takes. He states that she only gets medications filled with [facility] so I used claim history to complete med rec. I am concerned that she hasn't had dilantin filled since 10/11 when she got a 30 day supply so she may have been out of the dilantin for a while but that was the only medication name that her family member knew and states she takes daily so it was included in the home med list. I am going to notify provider of this concern.
[2023-01-09] MEDS: KCl 40 mEq in 0.9 % Sodium Chl 40 MEQ/1,000 ML IV.SOLN 250 MEQ IV (19:55)
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
[2023-01-09 19:57] LABS: Glucose, Whole Blood 523 mg/dL (60-115)
--- NOTE | 2023-01-09 20:07 | PC.NURSE ---
I assumed care of the pt at 1900. Pt is very sleepy in bed but is able to be woken up by name, presents A&Ox4, GCS 15. Reports 9/10 pain in her abdomen. Pt does report some nausea, was given zofran per MAR. I placed a 20g IV in the left hand. Started Potassium drip.
[2023-01-09 20:14] LABS: Phosphorus 1.7 mg/dL (2.7-4.5)
[2023-01-09] MEDS: Potassium Chloride ER 20 MEQ TAB.ER.PRT 60 MEQ PO (20:16)
--- NOTE | 2023-01-09 20:22 | PC.NURSE ---
IV potassium admin delayed due to limited IV access. Drip started and is flowing well. PO potassium admin delayed due to pt having nausea. Pt was able to take 2 of 3 tabs before becoming too nauseas to finish them.
--- NOTE | 2023-01-09 20:31 | PC.NURSE ---
Report given to Christiana CAMARGO in ICU.
[2023-01-09 20:35] LABS: ~Lactic Acid-LAB USE ONLY 2.3 mmol/L (0.5-2.0)
--- NOTE | 2023-01-09 20:49 | PC.NURSE ---
Pt IV in right AC infiltraed, causing pain and some swelling. IV was removed. Another IV was attempted in the right hand, which was unsuccessful. ICU nurse is aware. Vanco admin delayed.
[2023-01-09 21:00] VITALS: BP 148/79; PULSE 78; RESP 18; TEMP 36.6; O2SAT 96
[2023-01-09] MEDS: Morphine Sulfate 2 MG/ML CARTRIDGE IVPUSH (21:37)
[2023-01-09] MEDS: Heparin Sodium,Porcine 5,000 UNIT/ML VIAL 5000 UNIT SUBCUT (21:38)
[2023-01-09 21:41] LABS: Glucose, Whole Blood 522 mg/dL (60-115)
[2023-01-09] MEDS: Potassium Phosphate/NS 15 MMOL/250 ML PLAST..BAG 62.5 MMOL IV (21:45)
[2023-01-09] MEDS: vancomycin HCL 1,000 MG in 0.9 % Sodium Chloride 250 ML 270 MG IV (21:57)
[2023-01-09 22:00] VITALS: BP 134/75; PULSE 86; RESP 16; O2SAT 97
[2023-01-09 22:05] LABS: Reflex Lactate? 2 Y
[2023-01-09 22:15] VITALS: BMI 31.6
[2023-01-09 22:56] LABS: Glucose, Whole Blood 497 mg/dL (60-115)
[2023-01-09 23:00] VITALS: BP 146/89; PULSE 83; RESP 20; O2SAT 99
[2023-01-09] MEDS: Insulin Regular/NS 100 UNIT/100 ML PLAST..BAG IVCONT (23:01)
[2023-01-09 23:09] LABS: ~Lactic Acid-LAB USE ONLY 1.2 mmol/L (0.5-2.0)
[2023-01-09 23:21] LABS: Anion Gap 19 (12-20); Blood Urea Nitrogen 18 mg/dL (9-16); Calcium 8.1 mg/dL (8.4-10.2); Carbon Dioxide 15 mmol/L (22-29); Chloride 105 mmol/L (96-108); Creatinine Clr Calc Pharmacy 39.7; Estimated Glomerular Filt Rate 54; Glucose Random 524 mg/dL (60-115); Potassium 3.9 mmol/L (3.3-5.1); Sodium 135 mmol/L (135-145)
[2023-01-09] MEDS: HYDROmorphone HCl 1 MG/ML SYRINGE IVPUSH (23:31)
[2023-01-10] VITALS (28 sets, daily range): BP systolic 95–163; BP diastolic 49–98; PULSE 78–98; RESP 12–21; TEMP 36.1–37.2; O2SAT 92–98; BMI 31.6; BMI 33.1
[2023-01-10 00:04] LABS: Glucose, Whole Blood 446 mg/dL (60-115)
[2023-01-10] MEDS: KCl 40 mEq in 0.9 % Sodium Chl 40 MEQ/1,000 ML IV.SOLN 150 MEQ IVCONT (00:10)
[2023-01-10 01:12] LABS: Glucose, Whole Blood 427 mg/dL (60-115)
[2023-01-10 02:09] LABS: Glucose, Whole Blood 358 mg/dL (60-115)
[2023-01-10] MEDS: Potassium Phosphate/NS 15 MMOL/250 ML PLAST..BAG 62.5 MMOL IV (02:56)
[2023-01-10] MEDS: Piperacillin Sodium/Tazobactam 4.5 GM in 0.9 % Sodium Chloride 100 ML IV ×3 (02:58→17:44)
[2023-01-10 04:08] LABS: Glucose, Whole Blood 285 mg/dL (60-115)
[2023-01-10] MEDS: HYDROmorphone HCl 1 MG/ML SYRINGE IVPUSH ×6 (05:07→20:17)
[2023-01-10 05:22] LABS: VBG Base Excess -5.3 mmol/L; VBG HCO3 18 mmol/L (22-26); VBG pCO2 31 mmHg; VBG pH 7.38 (7.32-7.43); VBG pO2 71 mmHg
[2023-01-10 05:23] LABS: Venous Blood Gas Refer to POC result
[2023-01-10 05:26] LABS: MANUAL DIFF FLAG NO
[2023-01-10 05:29] LABS: Basophils Percent Auto 0.2 % (0-2); Hematocrit 27.8 % (37.0-47.0); Hemoglobin 9.7 g/dl (12.0-16.0); Imm Gran Abs Auto 0.06 X10*3/uL (0.00-0.03); Imm Gran Pct Auto 0.6 % (0.0-0.4); Lymphocytes Absolute Auto 1.3 X10*3/uL (1.2-4.9); Lymphocytes Percent Auto 12.6 % (20-40); Mean Corpuscular HGB Conc 34.9 g/dl (31.0-35.0); Mean Corpuscular Hemoglobin 30.3 pg (27.0-33.0); Mean Corpuscular Volume 86.9 fL (80.0-98.0); Mean Platelet Volume 10.6 fL (9.4-12.3); Monocytes Absolute Auto 0.6 X10*3/uL (0.1-1.2); Monocytes Percent Auto 5.7 % (2-11); Neutrophils Percent Auto 80.9 % (45-73); Platelet Count 180 X10*3/uL (160-400); Red Cell Distribution Width 12.7 % (11.0-16.0); White Blood Count 9.9 X10*3/uL (4.8-10.8)
[2023-01-10 05:47] LABS: Alanine Aminotransferase 128 U/L (0-31); Albumin Level 3.4 g/dL (3.5-5.0); Alkaline Phosphatase 108 U/L (39-117); Anion Gap 15 (12-20); Aspartate Amino Transferase 171 U/L (5-31); Bilirubin Total 0.3 mg/dL (0.0-1.0); Blood Urea Nitrogen 15 mg/dL (9-16); Calcium 8.2 mg/dL (8.4-10.2); Carbon Dioxide 17 mmol/L (22-29); Chloride 115 mmol/L (96-108); Creatinine Clr Calc Pharmacy 41.7; Estimated Glomerular Filt Rate 58; Glucose Random 240 mg/dL (60-115); Magnesium 1.8 mg/dL (1.6-2.6); Phosphorus 3.1 mg/dL (2.7-4.5); Potassium 4.1 mmol/L (3.3-5.1); Sodium 143 mmol/L (135-145); Total Protein 6.7 g/dL (6.5-8.0)
[2023-01-10 05:52] LABS: Triglycerides 1499 mg/dL
[2023-01-10 06:08] LABS: Glucose, Whole Blood 200 mg/dL (60-115)
[2023-01-10] MEDS: Dextrose 5 % and Lactated Ring 1,000 ML 125 ML IVCONT ×3 (06:55→22:41)
[2023-01-10 07:15] LABS: Glucose, Whole Blood 189 mg/dL (60-115)
[2023-01-10 08:15] LABS: Glucose, Whole Blood 167 mg/dL (60-115)
--- NOTE | 2023-01-10 08:47 | P.PNCC_ITS ---
Subjective Subjective Date of Service: 01/10/23 Interval History: 52-year-old lady with underlying history of diabetes mellitus, peripheral vascular disease, seizures admitted on 01/09/2023 with 3 day history of abdominal discomfort and vomiting and several episodes of seizure like episodes on the day of admission. Patient has not refilled her Dilantin since September of 2022. On ER evaluation patient noted to have pancreatitis with diabetic ketoacidosis and hypertriglyceridemia. She was started on insulin and admitted to intensive care unit. No events overnight. Critical Care Time (minutes): 45 Physical Exam Vital Signs: Vital Signs: Last Vital Signs Temp 98.5 F 01/10/23 08:00 Pulse 78 01/10/23 08:00 Resp 15 01/10/23 08:00 BP 131/78 01/10/23 08:00 Pulse Ox 97 01/10/23 08:00 O2 Del Method Room Air 01/10/23 08:00 BMI result Body Mass Index 33.1 Const: General: no acute distress, alert and awake Eyes: Sclerae: sclerae normal EOM: EOMs intact bilaterally Neck: Neck: Yes no lymphadenopathy, Yes trachea midline and Yes supple Resp: Effort & Inspection: normal respiratory effort and no respiratory distress Auscultation: clear to auscultation bilaterally Cardio: Rate: regular rate Rhythm: regular rhythm Heart sounds: no gallops, no murmurs and no rubs GI: Other: mild right upper quadrant tenderness Palpation (GI): Soft to palpation Auscultation: normal bowel sounds Extrem: General: Yes no pedal edema, No clubbing and No cyanosis Objective Data Labs 01/10/23 05:17 01/10/23 05:17 Labs: Laboratory Results - last 24 hr 01/09/23 01/09/23 01/09/23 16:19 16:57 16:58 WBC RBC Hgb Hct MCV MCH MCHC RDW Plt Count MPV Immature Gran % (Auto) Neut % (Auto) Lymph % (Auto) [place] % (Auto) Eos % (Auto) Baso % (Auto) Lymph # (Auto) [place] # (Auto) Eos # (Auto) Baso # (Auto) Abs Immat Gran (auto) Absolute Neuts (auto) Absolute Nucleated RBC Nucleated RBC % (auto) VBG pH VBG pCO2 VBG pO2 VBG HCO3 VBG O2 Saturation VBG Base Excess Sodium 127 L Potassium 2.7 L Chloride 91 L Carbon Dioxide 18 L Anion Gap 21 H BUN 19 H Creatinine 1.45 H Estim Creat Clear Calc 28.2 Estimated GFR 38 POC Glucose Random Glucose 701 H* Lactic Acid 2.6 H* Lactic Acid F/U @ 2Hr Lactic Acid F/U @ 4Hr Calcium 10.3 H Phosphorus Magnesium 2.3 Total Bilirubin 0.4 AST 22 ALT 24 Alkaline Phosphatase 146 H Total Creatine Kinase 91 Total Protein 8.6 H Albumin 4.3 Triglycerides Lipase 844 H Beta HCG, Quant Urine Color Urine Appearance Urine pH Ur Specific [place] Urine Protein Urine Glucose (UA) Urine Ketones Urine Blood Urine Nitrite Ur Leukocyte Esterase Urine RBC Urine WBC Ur Squamous Epith Cells Urine Bacteria Hyaline Casts Urine Opiates Screen Urine Fentanyl Screen Ur Barbiturates Screen Ur Phencyclidine Scrn Ur Amphetamines Screen U Benzodiazepines Scrn Urine Cocaine Screen U Marijuana (THC) Screen Ethyl Alcohol B-Hydroxybutyrate COVID-19 ([facility]) Negative COVID-19 Clin Com See Note 01/09/23 01/09/23 01/09/23 16:58 16:59 16:59 WBC 12.1 H RBC 3.86 L Hgb 11.8 L Hct 32.9 L MCV 85.2 MCH 30.6 MCHC 35.9 H RDW 12.3 Plt Count 240 D MPV 11.6 Immature Gran % (Auto) 0.6 H Neut % (Auto) 82.5 H Lymph % (Auto) 11.9 L [place] % (Auto) 4.6 Eos % (Auto) 0.1 Baso % (Auto) 0.3 Lymph # (Auto) 1.4 [place] # (Auto) 0.6 Eos # (Auto) 0.0 Baso # (Auto) 0.0 Abs Immat Gran (auto) 0.07 H Absolute Neuts (auto) 10.0 H Absolute Nucleated RBC 0.000 Nucleated RBC % (auto) 0.0 VBG pH VBG pCO2 VBG pO2 VBG HCO3 VBG O2 Saturation VBG Base Excess Sodium Potassium Chloride Carbon Dioxide Anion Gap BUN Creatinine Estim Creat Clear Calc Estimated GFR POC Glucose Random Glucose Lactic Acid Lactic Acid F/U @ 2Hr Lactic Acid F/U @ 4Hr Calcium Phosphorus 1.7 L Magnesium 2.4 Total Bilirubin AST ALT Alkaline Phosphatase Total Creatine Kinase Total Protein Albumin Triglycerides Lipase Beta HCG, Quant 7 Urine Color Urine Appearance Urine pH Ur Specific [place] Urine Protein Urine Glucose (UA) Urine Ketones Urine Blood Urine Nitrite Ur Leukocyte Esterase Urine RBC Urine WBC Ur Squamous Epith Cells Urine Bacteria Hyaline Casts Urine Opiates Screen Urine Fentanyl Screen Ur Barbiturates Screen Ur Phencyclidine Scrn Ur Amphetamines Screen U Benzodiazepines Scrn Urine Cocaine Screen U Marijuana (THC) Screen Ethyl Alcohol < 10 B-Hydroxybutyrate 3.01 H COVID-19 ([facility]) COVID-19 Clin Com 01/09/23 01/09/23 01/09/23 17:22 17:22 19:53 WBC RBC Hgb Hct MCV MCH MCHC RDW Plt Count MPV Immature Gran % (Auto) Neut % (Auto) Lymph % (Auto) [place] % (Auto) Eos % (Auto) Baso % (Auto) Lymph # (Auto) [place] # (Auto) Eos # (Auto) Baso # (Auto) Abs Immat Gran (auto) Absolute Neuts (auto) Absolute Nucleated RBC Nucleated RBC % (auto) VBG pH VBG pCO2 VBG pO2 VBG HCO3 VBG O2 Saturation VBG Base Excess Sodium Potassium Chloride Carbon Dioxide Anion Gap BUN Creatinine Estim Creat Clear Calc Estimated GFR POC Glucose 523 H* Random Glucose Lactic Acid Lactic Acid F/U @ 2Hr Lactic Acid F/U @ 4Hr Calcium Phosphorus Magnesium Total Bilirubin AST ALT Alkaline Phosphatase Total Creatine Kinase Total Protein Albumin Triglycerides Lipase Beta HCG, Quant Urine Color Yellow Urine Appearance Clear Urine pH 6.5 Ur Specific [place] >= 1.030 H Urine Protein 30 (1+) H Urine Glucose (UA) >=1000 H Urine Ketones 15 Urine Blood Negative Urine Nitrite Negative Ur Leukocyte Esterase Negative Urine RBC 0-2 Urine WBC 0-5 Ur Squamous Epith Cells 0-2 Urine Bacteria None Seen Hyaline Casts 0-2 Urine Opiates Screen Not Detected Urine Fentanyl Screen Not Detected Ur Barbiturates Screen POSITIVE H Ur Phencyclidine Scrn Not Detected Ur Amphetamines Screen Not Detected U Benzodiazepines Scrn Not Detected Urine Cocaine Screen Not Detected U Marijuana (THC) Screen POSITIVE H Ethyl Alcohol B-Hydroxybutyrate COVID-19 ([facility]) COVID-19 [employer] Com 01/09/23 01/09/23 01/09/23 20:01 21:37 22:49 WBC RBC Hgb Hct MCV MCH MCHC RDW Plt Count MPV Immature Gran % (Auto) Neut % (Auto) Lymph % (Auto) [place] % (Auto) Eos % (Auto) Baso % (Auto) Lymph # (Auto) [place] # (Auto) Eos # (Auto) Baso # (Auto) Abs Immat Gran (auto) Absolute Neuts (auto) Absolute Nucleated RBC Nucleated RBC % (auto) VBG pH VBG pCO2 VBG pO2 VBG HCO3 VBG O2 Saturation VBG Base Excess Sodium Potassium Chloride Carbon Dioxide Anion Gap BUN Creatinine Estim Creat Clear Calc Estimated GFR POC Glucose 522 H* Random Glucose Lactic Acid Lactic Acid F/U @ 2Hr 2.3 H* Lactic Acid F/U @ 4Hr 1.2 Calcium Phosphorus Magnesium Total Bilirubin AST ALT Alkaline Phosphatase Total Creatine Kinase Total Protein Albumin Triglycerides Lipase Beta HCG, Quant Urine Color Urine Appearance Urine pH Ur Specific [place] Urine Protein Urine Glucose (UA) Urine Ketones Urine Blood Urine Nitrite Ur Leukocyte Esterase Urine RBC Urine WBC Ur Squamous Epith Cells Urine Bacteria Hyaline Casts Urine Opiates Screen Urine Fentanyl Screen Ur Barbiturates Screen Ur Phencyclidine Scrn Ur Amphetamines Screen U Benzodiazepines Scrn Urine Cocaine Screen U Marijuana (THC) Screen Ethyl Alcohol B-Hydroxybutyrate COVID-19 ([facility]) COVID-19 Clin Com 01/09/23 01/09/23 01/10/23 22:49 22:53 00:00 WBC RBC Hgb Hct MCV MCH MCHC RDW Plt Count MPV Immature Gran % (Auto) Neut % (Auto) Lymph % (Auto) [place] % (Auto) Eos % (Auto) Baso % (Auto) Lymph # (Auto) [place] # (Auto) Eos # (Auto) Baso # (Auto) Abs Immat Gran (auto) Absolute Neuts (auto) Absolute Nucleated RBC Nucleated RBC % (auto) VBG pH VBG pCO2 VBG pO2 VBG HCO3 VBG O2 Saturation VBG Base Excess Sodium 135 Potassium 3.9 D Chloride 105 Carbon Dioxide 15 L Anion Gap 19 BUN 18 H Creatinine 1.06 Estim Creat Clear Calc 39.7 Estimated GFR 54 POC Glucose 497 H* 446 H* Random Glucose 524 H* Lactic Acid Lactic Acid F/U @ 2Hr Lactic Acid F/U @ 4Hr Calcium 8.1 L D Phosphorus Magnesium Total Bilirubin AST ALT Alkaline Phosphatase Total Creatine Kinase Total Protein Albumin Triglycerides Lipase Beta HCG, Quant Urine Color Urine Appearance Urine pH Ur Specific [place] Urine Protein Urine Glucose (UA) Urine Ketones Urine Blood Urine Nitrite Ur Leukocyte Esterase Urine RBC Urine WBC Ur Squamous Epith Cells Urine Bacteria Hyaline Casts Urine Opiates Screen Urine Fentanyl Screen Ur Barbiturates Screen Ur Phencyclidine Scrn Ur Amphetamines Screen U Benzodiazepines Scrn Urine Cocaine Screen U Marijuana (THC) Screen Ethyl Alcohol B-Hydroxybutyrate COVID-19 ([facility]) COVID-19 [facility] 01/10/23 01/10/23 01/10/23 01:08 02:05 04:04 WBC RBC Hgb Hct MCV MCH MCHC RDW Plt Count MPV Immature Gran % (Auto) Neut % (Auto) Lymph % (Auto) [place] % (Auto) Eos % (Auto) Baso % (Auto) Lymph # (Auto) [place] # (Auto) Eos # (Auto) Baso # (Auto) Abs Immat Gran (auto) Absolute Neuts (auto) Absolute Nucleated RBC Nucleated RBC % (auto) VBG pH VBG pCO2 VBG pO2 VBG HCO3 VBG O2 Saturation VBG Base Excess Sodium Potassium Chloride Carbon Dioxide Anion Gap BUN Creatinine Estim Creat Clear Calc Estimated GFR POC Glucose 427 H* 358 H* 285 H Random Glucose Lactic Acid Lactic Acid F/U @ 2Hr Lactic Acid F/U @ 4Hr Calcium Phosphorus Magnesium Total Bilirubin AST ALT Alkaline Phosphatase Total Creatine Kinase Total Protein Albumin Triglycerides Lipase Beta HCG, Quant Urine Color Urine Appearance Urine pH Ur Specific [place] Urine Protein Urine Glucose (UA) Urine Ketones Urine Blood Urine Nitrite Ur Leukocyte Esterase Urine RBC Urine WBC Ur Squamous Epith Cells Urine Bacteria Hyaline Casts Urine Opiates Screen Urine Fentanyl Screen Ur Barbiturates Screen Ur Phencyclidine Scrn Ur Amphetamines Screen U Benzodiazepines Scrn Urine Cocaine Screen U Marijuana (THC) Screen Ethyl Alcohol B-Hydroxybutyrate COVID-19 ([facility]) COVID-19 [place] 01/10/23 01/10/23 01/10/23 05:12 05:17 05:17 WBC 9.9 RBC 3.20 L Hgb 9.7 L Hct 27.8 L MCV 86.9 MCH 30.3 MCHC 34.9 RDW 12.7 Plt Count 180 MPV 10.6 Immature Gran % (Auto) 0.6 H Neut % (Auto) 80.9 H Lymph % (Auto) 12.6 L [place] % (Auto) 5.7 Eos % (Auto) 0.0 Baso % (Auto) 0.2 Lymph # (Auto) 1.3 [place] # (Auto) 0.6 Eos # (Auto) 0.0 Baso # (Auto) 0.0 Abs Immat Gran (auto) 0.06 H Absolute Neuts (auto) 8.0 Absolute Nucleated RBC 0.000 Nucleated RBC % (auto) 0.0 VBG pH 7.38 VBG pCO2 31 VBG pO2 71 VBG HCO3 18 L VBG O2 Saturation 93.0 VBG Base Excess -5.3 Sodium 143 Potassium 4.1 Chloride 115 H Carbon Dioxide 17 L Anion Gap 15 BUN 15 Creatinine 1.01 Estim Creat Clear Calc 41.7 Estimated GFR 58 POC Glucose Random Glucose 240 H Lactic Acid Lactic Acid F/U @ 2Hr Lactic Acid F/U @ 4Hr Calcium 8.2 L Phosphorus 3.1 Magnesium 1.8 Total Bilirubin 0.3 AST 171 H ALT 128 H Alkaline Phosphatase 108 Total Creatine Kinase Total Protein 6.7 Albumin 3.4 L Triglycerides Lipase Beta HCG, Quant Urine Color Urine Appearance Urine pH Ur Specific [place] Urine Protein Urine Glucose (UA) Urine Ketones Urine Blood Urine Nitrite Ur Leukocyte Esterase Urine RBC Urine WBC Ur Squamous Epith Cells Urine Bacteria Hyaline Casts Urine Opiates Screen Urine Fentanyl Screen Ur Barbiturates Screen Ur Phencyclidine Scrn Ur Amphetamines Screen U Benzodiazepines Scrn Urine Cocaine Screen U Marijuana (THC) Screen Ethyl Alcohol B-Hydroxybutyrate COVID-19 ([facility]) COVID-19 Clin Com 01/10/23 01/10/23 01/10/23 05:17 06:04 07:12 WBC RBC Hgb Hct MCV MCH MCHC RDW Plt Count MPV Immature Gran % (Auto) Neut % (Auto) Lymph % (Auto) [place] % (Auto) Eos % (Auto) Baso % (Auto) Lymph # (Auto) [place] # (Auto) Eos # (Auto) Baso # (Auto) Abs Immat Gran (auto) Absolute Neuts (auto) Absolute Nucleated RBC Nucleated RBC % (auto) VBG pH VBG pCO2 VBG pO2 VBG HCO3 VBG O2 Saturation VBG Base Excess Sodium Potassium Chloride Carbon Dioxide Anion Gap BUN Creatinine Estim Creat Clear Calc Estimated GFR POC Glucose 200 H 189 H Random Glucose Lactic Acid Lactic Acid F/U @ 2Hr Lactic Acid F/U @ 4Hr Calcium Phosphorus Magnesium Total Bilirubin AST ALT Alkaline Phosphatase Total Creatine Kinase Total Protein Albumin Triglycerides 1499 Lipase Beta HCG, Quant Urine Color Urine Appearance Urine pH Ur Specific [place] Urine Protein Urine Glucose (UA) Urine Ketones Urine Blood Urine Nitrite Ur Leukocyte Esterase Urine RBC Urine WBC Ur Squamous Epith Cells Urine Bacteria Hyaline Casts Urine Opiates Screen Urine Fentanyl Screen Ur Barbiturates Screen Ur Phencyclidine Scrn Ur Amphetamines Screen U Benzodiazepines Scrn Urine Cocaine Screen U Marijuana (THC) Screen Ethyl Alcohol B-Hydroxybutyrate COVID-19 ([facility]) COVID-19 [place] 01/10/23 08:12 WBC RBC Hgb Hct MCV MCH MCHC RDW Plt Count MPV Immature Gran % (Auto) Neut % (Auto) Lymph % (Auto) [place] % (Auto) Eos % (Auto) Baso % (Auto) Lymph # (Auto) [place] # (Auto) Eos # (Auto) Baso # (Auto) Abs Immat Gran (auto) Absolute Neuts (auto) Absolute Nucleated RBC Nucleated RBC % (auto) VBG pH VBG pCO2 VBG pO2 VBG HCO3 VBG O2 Saturation VBG Base Excess Sodium Potassium Chloride Carbon Dioxide Anion Gap BUN Creatinine Estim Creat Clear Calc Estimated GFR POC Glucose 167 H Random Glucose Lactic Acid Lactic Acid F/U @ 2Hr Lactic Acid F/U @ 4Hr Calcium Phosphorus Magnesium Total Bilirubin AST ALT Alkaline Phosphatase Total Creatine Kinase Total Protein Albumin Triglycerides Lipase Beta HCG, Quant Urine Color Urine Appearance Urine pH Ur Specific [place] Urine Protein Urine Glucose (UA) Urine Ketones Urine Blood Urine Nitrite Ur Leukocyte Esterase Urine RBC Urine WBC Ur Squamous Epith Cells Urine Bacteria Hyaline Casts Urine Opiates Screen Urine Fentanyl Screen Ur Barbiturates Screen Ur Phencyclidine Scrn Ur Amphetamines Screen U Benzodiazepines Scrn Urine Cocaine Screen U Marijuana (THC) Screen Ethyl Alcohol B-Hydroxybutyrate COVID-19 ([facility]) COVID-19 Clin Com Progress Note: A&P Assessment and plan (1) AYANNA (acute kidney injury): Status: Acute (2) DKA (diabetic ketoacidosis): Status: Acute (3) Biliary acute pancreatitis: Status: Acute (4) Seizures: Status: Acute (5) Diabetes: Status: Acute (6) PAD (peripheral artery disease): Status: Acute Plan Assessment: 50-year-old lady admitted with diabetic ketoacidosis on the background of pancreatitis secondary to hypertriglyceridemia in poor compliance with antiseizure medications. Plan: Neuro: Underlying history of seizure disorder, started on Dilantin. Cardiac: No acute issues. Pulmonary: No acute issues. Renal: Acute renal failure secondary to diabetic ketoacidosis, improving. Non oliguric. Continue to monitor renal indices and urine output. Endo: Diabetic ketoacidosis on the background of hypertriglyceridemia and is pancreatitis. Continue on insulin drip. GI: No acute issues. ID: No acute issues Heme/Onc: No acute issues. Psych: No acute issues. Miscellaneous: No acute issues. Prophylaxis: Heparin Diet: nothing by mouth Critical care time spent: 45 minutes Quality Stroke Does the patient have a stroke diagnosis?: No VTE Prior VTE?: No VTE Risk Level:: Medical - moderate - high VTE Device Contraindication: Treatment Not Indicated VTE Drug Contraindication: N/A - Med Ordered
[2023-01-10 09:08] LABS: Glucose, Whole Blood 135 mg/dL (60-115)
[2023-01-10] MEDS: Heparin Sodium,Porcine 5,000 UNIT/ML VIAL 5000 UNIT SUBCUT ×3 (09:13→20:23)
--- NOTE | 2023-01-10 10:00 | MHC.CM.PN ---
CM MET WITH PT AT BEDSIDE. PT LIVES WITH SPOUSE IN A THIRD FLOOR APT. INDEPENDENT AT BASELINE, NO SERVICES. NO HCP BUT WILLING TO DO ONE. +COVID VAX X2 PCP DR. REKHA PINTO AT [facility]. DP: HOME, OPEN TO [facility] IF RECOMMENDED. [facility] IS FIRST CHOICE. FAMILY WILL TRANSPORT . CM WILL CONTINUE TO FOLLOW FOR ANY CHANGE IN PLAN/DC NEEDS.
[2023-01-10 10:13] LABS: Glucose, Whole Blood 106 mg/dL (60-115)
[2023-01-10 11:08] LABS: Glucose, Whole Blood 117 mg/dL (60-115)
[2023-01-10 11:59] LABS: Glucose, Whole Blood 160 mg/dL (60-115)
[2023-01-10] MEDS: ondansetron HCL 4 MG/2 ML VIAL IVPUSH ×2 (12:33→20:17)
[2023-01-10 12:58] LABS: Glucose, Whole Blood 169 mg/dL (60-115)
[2023-01-10 15:10] LABS: Glucose, Whole Blood 212 mg/dL (60-115)
[2023-01-10] MEDS: Phenytoin Sodium 100 MG/2 ML VIAL 200 MG IVPUSH ×2 (15:19→20:24)
[2023-01-10 16:09] LABS: Glucose, Whole Blood 209 mg/dL (60-115)
[2023-01-10 17:03] LABS: Glucose, Whole Blood 170 mg/dL (60-115)
[2023-01-10 18:06] LABS: Glucose, Whole Blood 88 mg/dL (60-115)
[2023-01-10 19:03] LABS: Glucose, Whole Blood 157 mg/dL (60-115)
[2023-01-10 20:02] LABS: Glucose, Whole Blood 176 mg/dL (60-115)
[2023-01-10 21:07] LABS: Glucose, Whole Blood 214 mg/dL (60-115)
[2023-01-10 22:12] LABS: Glucose, Whole Blood 219 mg/dL (60-115)
[2023-01-10] MEDS: Insulin Regular/NS 100 UNIT/100 ML PLAST..BAG IVCONT (22:40)
[2023-01-10 22:59] LABS: Glucose, Whole Blood 207 mg/dL (60-115)
[2023-01-10 23:51] LABS: Glucose, Whole Blood 169 mg/dL (60-115)
[2023-01-11] VITALS (22 sets, daily range): BP systolic 99–150; BP diastolic 57–98; PULSE 68–106; RESP 11–25; TEMP 36.3–37; O2SAT 92–100; BMI 34.8; BMI 29.3
[2023-01-11] MEDS: Dextrose 50 % 25 GM/50 ML SYRINGE IVPUSH (01:09)
[2023-01-11] MEDS: HYDROmorphone HCl 1 MG/ML SYRINGE IVPUSH ×2 (01:19→07:45)
[2023-01-11] MEDS: Piperacillin Sodium/Tazobactam 4.5 GM in 0.9 % Sodium Chloride 100 ML IV ×3 (01:26→15:29)
[2023-01-11 03:02] LABS: Glucose, Whole Blood 173 mg/dL (60-115)
[2023-01-11 04:01] LABS: Glucose, Whole Blood 187 mg/dL (60-115)
[2023-01-11] MEDS: Dextrose 5 % and Lactated Ring 1,000 ML 125 ML IVCONT (05:07)
[2023-01-11 05:09] LABS: Glucose, Whole Blood 152 mg/dL (60-115)
[2023-01-11 05:16] LABS: MANUAL DIFF FLAG NO
[2023-01-11 05:19] LABS: Basophils Percent Auto 0.2 % (0-2); Eosinophils Absolute Auto 0.2 X10*3/uL (0.0-0.4); Eosinophils Percent Auto 1.5 % (0-4); Imm Gran Abs Auto 0.04 X10*3/uL (0.00-0.03); Imm Gran Pct Auto 0.4 % (0.0-0.4); Lymphocytes Absolute Auto 2.6 X10*3/uL (1.2-4.9); Lymphocytes Percent Auto 24.3 % (20-40); Mean Corpuscular HGB Conc 33.3 g/dl (31.0-35.0); Mean Corpuscular Hemoglobin 29.6 pg (27.0-33.0); Mean Corpuscular Volume 88.8 fL (80.0-98.0); Mean Platelet Volume 10.8 fL (9.4-12.3); Monocytes Absolute Auto 0.6 X10*3/uL (0.1-1.2); Monocytes Percent Auto 5.7 % (2-11); Neutrophils Absolute Auto 7.4 x10*3/uL (2.0-8.3); Neutrophils Percent Auto 67.9 % (45-73); Platelet Count 168 X10*3/uL (160-400); Red Blood Count 3.04 X10*6/uL (4.20-5.50); Red Cell Distribution Width 13.3 % (11.0-16.0); White Blood Count 10.8 X10*3/uL (4.8-10.8)
[2023-01-11 05:21] LABS: VBG Base Excess -2.2 mmol/L; VBG HCO3 21 mmol/L (22-26); VBG pCO2 31 mmHg; VBG pH 7.44 (7.32-7.43); VBG pO2 89 mmHg
[2023-01-11 05:33] LABS: Triglycerides 735 mg/dL
[2023-01-11 05:39] LABS: Alanine Aminotransferase 73 U/L (0-31); Albumin Level 2.9 g/dL (3.5-5.0); Alkaline Phosphatase 114 U/L (39-117); Anion Gap 10 (12-20); Aspartate Amino Transferase 44 U/L (5-31); Bilirubin Total 0.4 mg/dL (0.0-1.0); Blood Urea Nitrogen 8 mg/dL (9-16); Calcium 9.1 mg/dL (8.4-10.2); Carbon Dioxide 20 mmol/L (22-29); Chloride 114 mmol/L (96-108); Creatinine Clr Calc Pharmacy 50.6; Estimated Glomerular Filt Rate > 60; Glucose Random 153 mg/dL (60-115); Magnesium 1.6 mg/dL (1.6-2.6); Potassium 3.1 mmol/L (3.3-5.1); Sodium 141 mmol/L (135-145); Total Protein 5.7 g/dL (6.5-8.0)
[2023-01-11 05:46] LABS: Venous Blood Gas Refer to POC result
[2023-01-11 05:51] LABS: Lipase 426 U/L (8-78)
[2023-01-11 05:55] LABS: Glucose, Whole Blood 135 mg/dL (60-115)
[2023-01-11] MEDS: Albumin Human 25 % 100 ML 200 ML IV (06:13)
[2023-01-11] MEDS: Phenytoin Sodium 100 MG/2 ML VIAL 200 MG IVPUSH ×3 (07:45→20:36)
[2023-01-11] MEDS: Potassium Phosphate/NS 15 MMOL/250 ML PLAST..BAG 62.5 MMOL IV ×2 (07:46→13:12)
[2023-01-11] MEDS: Heparin Sodium,Porcine 5,000 UNIT/ML VIAL 5000 UNIT SUBCUT ×3 (07:46→20:14)
[2023-01-11] MEDS: Insulin Glargine,Hum.rec.anlog 100 UNIT/ML 10 ML VIAL SUBCUT (09:59)
[2023-01-11] MEDS: gemfibroziL 600 MG TABLET PO ×2 (10:07→15:45)
--- NOTE | 2023-01-11 10:13 | PM.CCPN ---
Subjective Subjective Date of Service: 01/11/23 Interval History: 52-year-old lady with underlying history of diabetes mellitus, peripheral vascular disease, seizures admitted on 01/09/2023 with 3 day history of abdominal discomfort and vomiting and several episodes of seizure like episodes on the day of admission. Patient has not refilled her Dilantin since September of 2022. On ER evaluation patient noted to have pancreatitis with diabetic ketoacidosis and hypertriglyceridemia. She was started on insulin and admitted to intensive care unit. No events overnight. triglycerides and lipase improved. Titrated off insulin drip. Critical Care Time (minutes): 0 Physical Exam Vital Signs: Vital Signs: Last Vital Signs Temp 98.2 F 01/11/23 08:00 Pulse 84 01/11/23 09:00 Resp 15 01/11/23 09:00 BP 100/62 01/11/23 09:00 Pulse Ox 93 01/11/23 09:00 O2 Del Method Room Air 01/11/23 09:00 BMI result Body Mass Index 29.3 Const: General: no acute distress, alert and awake Eyes: Sclerae: sclerae normal EOM: EOMs intact bilaterally Neck: Neck: Yes no lymphadenopathy, Yes trachea midline and Yes supple Resp: Effort & Inspection: normal respiratory effort and no respiratory distress Auscultation: clear to auscultation bilaterally Cardio: Rate: regular rate Rhythm: regular rhythm Heart sounds: no gallops, no murmurs and no rubs GI: Palpation (GI): Soft to palpation and Other GI palpation findings present ( Nontender) Auscultation: normal bowel sounds Extrem: General: Yes no pedal edema, No clubbing and No cyanosis Objective Data Labs 01/11/23 05:10 01/11/23 05:10 Labs: Laboratory Results - last 24 hr 01/10/23 01/10/23 01/10/23 10:09 11:05 11:56 WBC RBC Hgb Hct MCV MCH MCHC RDW Plt Count MPV Immature Gran % (Auto) Neut % (Auto) Lymph % (Auto) Harris % (Auto) Eos % (Auto) Baso % (Auto) Lymph # (Auto) [place] # (Auto) Eos # (Auto) Baso # (Auto) Abs Immat Gran (auto) Absolute Neuts (auto) Absolute Nucleated RBC Nucleated RBC % (auto) VBG pH VBG pCO2 VBG pO2 VBG HCO3 VBG O2 Saturation VBG Base Excess Sodium Potassium Chloride Carbon Dioxide Anion Gap BUN Creatinine Estim Creat Clear Calc Estimated GFR POC Glucose 106 117 H 160 H Random Glucose Calcium Phosphorus Magnesium Total Bilirubin AST ALT Alkaline Phosphatase Total Protein Albumin Triglycerides Lipase 01/10/23 01/10/23 01/10/23 12:55 15:06 16:05 WBC RBC Hgb Hct MCV MCH MCHC RDW Plt Count MPV Immature Gran % (Auto) Neut % (Auto) Lymph % (Auto) [place] % (Auto) Eos % (Auto) Baso % (Auto) Lymph # (Auto) [place] # (Auto) Eos # (Auto) Baso # (Auto) Abs Immat Gran (auto) Absolute Neuts (auto) Absolute Nucleated RBC Nucleated RBC % (auto) VBG pH VBG pCO2 VBG pO2 VBG HCO3 VBG O2 Saturation VBG Base Excess Sodium Potassium Chloride Carbon Dioxide Anion Gap BUN Creatinine Estim Creat Clear Calc Estimated GFR POC Glucose 169 H 212 H 209 H Random Glucose Calcium Phosphorus Magnesium Total Bilirubin AST ALT Alkaline Phosphatase Total Protein Albumin Triglycerides Lipase 01/10/23 01/10/23 01/10/23 17:00 18:02 18:59 WBC RBC Hgb Hct MCV MCH MCHC RDW Plt Count MPV Immature Gran % (Auto) Neut % (Auto) Lymph % (Auto) Harris % (Auto) Eos % (Auto) Baso % (Auto) Lymph # (Auto) Harris # (Auto) Eos # (Auto) Baso # (Auto) Abs Immat Gran (auto) Absolute Neuts (auto) Absolute Nucleated RBC Nucleated RBC % (auto) VBG pH VBG pCO2 VBG pO2 VBG HCO3 VBG O2 Saturation VBG Base Excess Sodium Potassium Chloride Carbon Dioxide Anion Gap BUN Creatinine Estim Creat Clear Calc Estimated GFR POC Glucose 170 H 88 157 H Random Glucose Calcium Phosphorus Magnesium Total Bilirubin AST ALT Alkaline Phosphatase Total Protein Albumin Triglycerides Lipase 01/10/23 01/10/23 01/10/23 19:59 21:03 22:07 WBC RBC Hgb Hct MCV MCH MCHC RDW Plt Count MPV Immature Gran % (Auto) Neut % (Auto) Lymph % (Auto) Harris % (Auto) Eos % (Auto) Baso % (Auto) Lymph # (Auto) [place] # (Auto) Eos # (Auto) Baso # (Auto) Abs Immat Gran (auto) Absolute Neuts (auto) Absolute Nucleated RBC Nucleated RBC % (auto) VBG pH VBG pCO2 VBG pO2 VBG HCO3 VBG O2 Saturation VBG Base Excess Sodium Potassium Chloride Carbon Dioxide Anion Gap BUN Creatinine Estim Creat Clear Calc Estimated GFR POC Glucose 176 H 214 H 219 H Random Glucose Calcium Phosphorus Magnesium Total Bilirubin AST ALT Alkaline Phosphatase Total Protein Albumin Triglycerides Lipase 01/10/23 01/10/23 01/11/23 22:55 23:48 01:01 WBC RBC Hgb Hct MCV MCH MCHC RDW Plt Count MPV Immature Gran % (Auto) Neut % (Auto) Lymph % (Auto) Harris % (Auto) Eos % (Auto) Baso % (Auto) Lymph # (Auto) Harris # (Auto) Eos # (Auto) Baso # (Auto) Abs Immat Gran (auto) Absolute Neuts (auto) Absolute Nucleated RBC Nucleated RBC % (auto) VBG pH VBG pCO2 VBG pO2 VBG HCO3 VBG O2 Saturation VBG Base Excess Sodium Potassium Chloride Carbon Dioxide Anion Gap BUN Creatinine Estim Creat Clear Calc Estimated GFR POC Glucose 207 H 169 H 100 Random Glucose Calcium Phosphorus Magnesium Total Bilirubin AST ALT Alkaline Phosphatase Total Protein Albumin Triglycerides Lipase 01/11/23 01/11/23 01/11/23 01:53 02:59 03:58 WBC RBC Hgb Hct MCV MCH MCHC RDW Plt Count MPV Immature Gran % (Auto) Neut % (Auto) Lymph % (Auto) [place] % (Auto) Eos % (Auto) Baso % (Auto) Lymph # (Auto) Harris # (Auto) Eos # (Auto) Baso # (Auto) Abs Immat Gran (auto) Absolute Neuts (auto) Absolute Nucleated RBC Nucleated RBC % (auto) VBG pH VBG pCO2 VBG pO2 VBG HCO3 VBG O2 Saturation VBG Base Excess Sodium Potassium Chloride Carbon Dioxide Anion Gap BUN Creatinine Estim Creat Clear Calc Estimated GFR POC Glucose 151 H 173 H 187 H Random Glucose Calcium Phosphorus Magnesium Total Bilirubin AST ALT Alkaline Phosphatase Total Protein Albumin Triglycerides Lipase 01/11/23 01/11/23 01/11/23 05:04 05:10 05:10 WBC 10.8 RBC 3.04 L Hgb 9.0 L Hct 27.0 L MCV 88.8 MCH 29.6 MCHC 33.3 RDW 13.3 Plt Count 168 MPV 10.8 Immature Gran % (Auto) 0.4 Neut % (Auto) 67.9 Lymph % (Auto) 24.3 Harris % (Auto) 5.7 Eos % (Auto) 1.5 Baso % (Auto) 0.2 Lymph # (Auto) 2.6 Harris # (Auto) 0.6 Eos # (Auto) 0.2 Baso # (Auto) 0.0 Abs Immat Gran (auto) 0.04 H Absolute Neuts (auto) 7.4 Absolute Nucleated RBC 0.000 Nucleated RBC % (auto) 0.0 VBG pH VBG pCO2 VBG pO2 VBG HCO3 VBG O2 Saturation VBG Base Excess Sodium 141 Potassium 3.1 L D Chloride 114 H Carbon Dioxide 20 L Anion Gap 10 L BUN 8 L Creatinine 0.88 Estim Creat Clear Calc 50.6 Estimated GFR > 60 POC Glucose 152 H Random Glucose 153 H Calcium 9.1 D Phosphorus 2.0 L Magnesium 1.6 Total Bilirubin 0.4 AST 44 H ALT 73 H Alkaline Phosphatase 114 Total Protein 5.7 L Albumin 2.9 L Triglycerides Lipase 426 H 01/11/23 01/11/23 01/11/23 05:10 05:11 05:51 WBC RBC Hgb Hct MCV MCH MCHC RDW Plt Count MPV Immature Gran % (Auto) Neut % (Auto) Lymph % (Auto) Harris % (Auto) Eos % (Auto) Baso % (Auto) Lymph # (Auto) Harris # (Auto) Eos # (Auto) Baso # (Auto) Abs Immat Gran (auto) Absolute Neuts (auto) Absolute Nucleated RBC Nucleated RBC % (auto) VBG pH 7.44 H VBG pCO2 31 VBG pO2 89 VBG HCO3 21 L VBG O2 Saturation 99.0 VBG Base Excess -2.2 Sodium Potassium Chloride Carbon Dioxide Anion Gap BUN Creatinine Estim Creat Clear Calc Estimated GFR POC Glucose 135 H Random Glucose Calcium Phosphorus Magnesium Total Bilirubin AST ALT Alkaline Phosphatase Total Protein Albumin Triglycerides 735 Lipase 01/11/23 01/11/23 01/11/23 07:11 07:57 08:59 WBC RBC Hgb Hct MCV MCH MCHC RDW Plt Count MPV Immature Gran % (Auto) Neut % (Auto) Lymph % (Auto) [place] % (Auto) Eos % (Auto) Baso % (Auto) Lymph # (Auto) Harris # (Auto) Eos # (Auto) Baso # (Auto) Abs Immat Gran (auto) Absolute Neuts (auto) Absolute Nucleated RBC Nucleated RBC % (auto) VBG pH VBG pCO2 VBG pO2 VBG HCO3 VBG O2 Saturation VBG Base Excess Sodium Potassium Chloride Carbon Dioxide Anion Gap BUN Creatinine Estim Creat Clear Calc Estimated GFR POC Glucose 125 H 123 H 197 H Random Glucose Calcium Phosphorus Magnesium Total Bilirubin AST ALT Alkaline Phosphatase Total Protein Albumin Triglycerides Lipase Microbiology Microbiology Results: Microbiology 01/09/23 18:52 Blood - Venous Blood Culture - Preliminary No growth after 24 hours. 01/09/23 18:52 Blood - Venous Blood Culture - Preliminary No growth after 24 hours. Progress Note: A&P Assessment and plan (1) Biliary acute pancreatitis: Status: Acute (2) DKA (diabetic ketoacidosis): Status: Acute (3) AYANNA (acute kidney injury): Status: Acute (4) Seizures: Status: Acute Plan Assessment: 50-year-old lady admitted with diabetic ketoacidosis on the background of pancreatitis secondary to hypertriglyceridemia in poor compliance with antiseizure medications. Plan: Neuro: Underlying history of seizure disorder. Continue on Dilantin. Cardiac: No acute issues. Pulmonary: No acute issues. Renal: Acute renal failure secondary to diabetic ketoacidosis, resolved. Non oliguric. Continue to monitor renal indices and urine output. Endo: Diabetic ketoacidosis, resolved. Titrated off insulin drip. Pancreatitis is improving. Started on gemfibrozil. GI: No acute issues. ID: Empiric antibiotics for the 1st 48 hours. Heme/Onc: No acute issues. Psych: No acute issues. Miscellaneous: No acute issues. Prophylaxis: Heparin Diet: Full liquids Quality Stroke Does the patient have a stroke diagnosis?: No VTE Prior VTE?: No VTE Risk Level:: Medical - moderate - high VTE Device Contraindication: Treatment Not Indicated VTE Drug Contraindication: N/A - Med Ordered
[2023-01-11] MEDS: Insulin Lispro 100 UNIT/ML 3 ML VIAL SUBCUT ×3 (11:55→20:35)
[2023-01-11] MEDS: ondansetron HCL 4 MG/2 ML VIAL IVPUSH ×3 (12:03→23:31)
--- NOTE | 2023-01-11 15:19 | PM.EVENT ---
Event Note Date of Service: 01/11/23 Event Note: 52-year-old lady with underlying history of diabetes mellitus, peripheral vascular disease, seizures admitted on 01/09/2023 with 3 day history of abdominal discomfort and vomiting and several episodes of seizure like episodes on the day of admission.? Patient has not refilled her Dilantin since September of 2022.? On ER evaluation patient noted to have pancreatitis with diabetic ketoacidosis and hypertriglyceridemia.? She was started on insulin and admitted to intensive care unit s/p insulin drip and downgraded to the medical floor on 01/11 acute pancreatitis secondary to elevated TG s/p insulin drip TG down to 735 from 1499, started on gemfibrozil continue empiric abx tolerating full liquid diet, ADAT DKA secondary to acute pancreatitis resolved s/p insulin drip, on Lantus SQ follow POCs, ADA diet metformin on hold AYANNA r/t DKA resolved hypokalemia replace and follow HTN lisinopril/HCTZ on hold for AYANNA. BP soft, resume as bp allows seizure disorder multiple seizures on day of admission - likely due to medication non compliance (has not picked up dilantin since september) and metabolic abnormalities r/t DKA/pancreatitis no seizures since admission continue IV dilantin for now, will need to transition to po mood resume sertraline dvt ppx - heparin attending - dr. larson Time Spent With Patient Time: Total time managing care of this patient today ____ minutes.
[2023-01-12] VITALS (7 sets, daily range): BP systolic 114–140; BP diastolic 58–83; PULSE 66–90; RESP 16–20; TEMP 36.2–37; O2SAT 97–99
[2023-01-12] MEDS: Sertraline HCL 50 MG TABLET PO (08:53)
[2023-01-12] MEDS: gemfibroziL 600 MG TABLET PO ×2 (08:53→16:45)
[2023-01-12] MEDS: Insulin Glargine,Hum.rec.anlog 100 UNIT/ML 10 ML VIAL SUBCUT (08:53)
[2023-01-12] MEDS: Insulin Lispro 100 UNIT/ML 3 ML VIAL SUBCUT ×3 (08:54→20:59)
[2023-01-12] MEDS: Heparin Sodium,Porcine 5,000 UNIT/ML VIAL 5000 UNIT SUBCUT ×3 (08:55→20:40)
[2023-01-12] MEDS: Phenytoin Sodium 100 MG/2 ML VIAL 200 MG IVPUSH (08:55)
--- NOTE | 2023-01-12 10:59 | HO.PM.IMPN ---
Subjective Subjective Date of Service: 01/12/23 Interval History: seen and examined this morning follow up for DKA, pancreatitis, seizures; downgraded from ICU 01/11 no recurrent seizure activity still reporting abdominal pain Review of Systems Review of Systems: Yes all other systems are reviewed and are negative Constitutional Constitutional: Denies chills and Denies fever(s) Cardiovascular Cardiovascular: Denies chest pain, Denies palpitations and Denies dyspnea Respiratory Respiratory: Denies cough and Denies dyspnea Gastrointestinal Gastrointestinal: Reports abdominal pain, Denies nausea and Denies vomiting Endocrine Endocrine: Denies palpitations Physical Exam Vital Signs: Vital Signs: Last Vital Signs Temp 97.3 F 01/12/23 07:30 Pulse 66 01/12/23 07:54 Resp 16 01/12/23 07:54 BP 126/75 01/12/23 07:30 Pulse Ox 98 01/12/23 07:30 O2 Del Method Room Air 01/12/23 07:30 BMI result Body Mass Index 29.3 Const: General: cooperative, comfortable, alert and awake Nutritional Appearance: average body habitus Orientation/consciousness: patient oriented x3 Resp: Effort & Inspection: normal respiratory effort and able to speak in complete sentences Auscultation: not clear to auscultation bilaterally Cardio: Rate: regular rate Heart sounds: S1 normal heart sound present and S2 normal heart sound present GI: Other: tender RUQ/epigastric area; no guarding, no rebound; +BS; non-distended Skin: Other: warm/dry Neuro: General: patient oriented x3, moves all extremities and CN's II-XI intact bilaterally Extrem: General: Yes no pedal edema Objective Data Active Medications Albuterol Sulfate (Albuterol Sulfate 90 Mcg 8 Gm Inhaler) 2 puff INHALE Q4H PRN PRN Reason: Wheezing Dextrose (Dextrose 50 % 25 Gm/50 Ml Syringe) 25 gm IVPUSH Q30M PRN PRN Reason: BG < 70 Last Admin: 01/11/23 01:09 Dose: 25 gm Documented By: MARCELINO Fluticasone Propionate (Fluticasone Propionate 100 Mcg Blst.W.Dev) 1 puff INHALE RBID GILBERTO Last Admin: 01/12/23 07:54 Dose: 1 puff Documented By: RIVER Gemfibrozil (Gemfibrozil 600 Mg Tablet) 600 mg PO BIDAC [facility] Last Admin: 01/12/23 08:53 Dose: 600 mg Documented By: SAM Heparin Sodium (Porcine) (Heparin Sodium,Porcine 5,000 Unit/Ml Vial) 5,000 unit SUBCUT TID [facility] Last Admin: 01/12/23 08:55 Dose: 5,000 unit Documented By: SAM Piperacillin Sod/Tazobactam (Sod 3.375 gm/ Sodium Chloride) 50 mls @ 100 mls/hr IV Q6H [facility] Last Infusion: 01/12/23 10:08 Dose: 0 mls/hr Documented By: SAM Magnesium Sulfate (Magnesium Sulfate/H2o) 2 gm in 50 mls @ 25 mls/hr IV ONCE ONE Stop: 01/12/23 11:15 Last Admin: 01/12/23 10:05 Dose: 25 mls/hr Documented By: SAM Insulin Glargine (Insulin Glargine,Hum.Rec.Anlog 100 Unit/Ml 10 Ml Vial) 5 unit SUBCUT DAILY [facility] Last Admin: 01/12/23 08:53 Dose: 5 unit Documented By: SAM Insulin Human Lispro (Insulin Lispro 100 Unit/Ml 3 Ml Vial) 0 unit SUBCUT QIDACHS [facility]; Protocol Last Admin: 01/12/23 08:54 Dose: 2 unit Documented By: SAM Ondansetron HCl (Ondansetron Hcl 4 Mg/2 Ml Vial) 4 mg IVPUSH Q6H PRN PRN Reason: Nausea Last Admin: 01/11/23 23:31 Dose: 4 mg Documented By: KIANNA Phenytoin Sodium (Phenytoin Sodium Extended 100 Mg Capsule) 200 mg PO TID [facility] Sertraline HCl (Sertraline Hcl 50 Mg Tablet) 50 mg PO DAILY [facility] Last Admin: 01/12/23 08:53 Dose: 50 mg Documented By: SAM Labs 01/12/23 05:57 01/12/23 05:57 Labs: Laboratory Results - last 24 hr 01/11/23 01/11/23 01/11/23 11:35 15:53 20:23 MCV MCH MCHC RDW Plt Count MPV Immature Gran % (Auto) Neut % (Auto) Lymph % (Auto) [place] % (Auto) Eos % (Auto) Baso % (Auto) Lymph # (Auto) [place] # (Auto) Eos # (Auto) Baso # (Auto) Abs Immat Gran (auto) Absolute Neuts (auto) Absolute Nucleated RBC Nucleated RBC % (auto) Anion Gap Estim Creat Clear Calc Estimated GFR POC Glucose 231 H 293 H 171 H Random Glucose Calcium Magnesium Total Bilirubin AST ALT Alkaline Phosphatase Total Protein Albumin Triglycerides Lipase Phenytoin 01/12/23 01/12/23 01/12/23 05:57 05:57 07:16 MCV 89.1 MCH 30.1 MCHC 33.8 RDW 13.4 Plt Count 164 MPV 11.8 Immature Gran % (Auto) 0.6 H Neut % (Auto) 65.6 Lymph % (Auto) 27.3 [place] % (Auto) 5.7 Eos % (Auto) 0.6 Baso % (Auto) 0.2 Lymph # (Auto) 2.5 [place] # (Auto) 0.5 Eos # (Auto) 0.1 Baso # (Auto) 0.0 Abs Immat Gran (auto) 0.05 H Absolute Neuts (auto) 5.9 Absolute Nucleated RBC 0.000 Nucleated RBC % (auto) 0.0 Anion Gap 15 Estim Creat Clear Calc 49.5 Estimated GFR 55 POC Glucose 188 H Random Glucose 210 H Calcium 9.2 Magnesium 1.4 L* Total Bilirubin 0.4 AST 40 H ALT 74 H Alkaline Phosphatase 155 H Total Protein 6.1 L Albumin 3.2 L Triglycerides 551 Lipase 203 H Phenytoin 01/12/23 09:55 MCV MCH MCHC RDW Plt Count MPV Immature Gran % (Auto) Neut % (Auto) Lymph % (Auto) [place] % (Auto) Eos % (Auto) Baso % (Auto) Lymph # (Auto) [place] # (Auto) Eos # (Auto) Baso # (Auto) Abs Immat Gran (auto) Absolute Neuts (auto) Absolute Nucleated RBC Nucleated RBC % (auto) Anion Gap Estim Creat Clear Calc Estimated GFR POC Glucose Random Glucose Calcium Magnesium Total Bilirubin AST ALT Alkaline Phosphatase Total Protein Albumin Triglycerides Lipase Phenytoin 18.8 Microbiology Microbiology Results: Microbiology 01/09/23 18:52 Blood Culture - Preliminary Blood - Venous No growth after 48 hours. 01/09/23 18:52 Blood Culture - Preliminary Blood - Venous No growth after 48 hours. Assessment and Plan (1) AYANNA (acute kidney injury): Status: Acute (2) DKA (diabetic ketoacidosis): Status: Acute Plan This is a 52-year-old female with underlying history of diabetes mellitus, peripheral vascular disease, seizures admitted on 01/09/2023 with 3 day history of abdominal discomfort and vomiting and several episodes of seizure like episodes on the day of admission.?On ER evaluation patient noted to have pancreatitis with diabetic ketoacidosis and hypertriglyceridemia.? She was started on insulin drip and admitted to intensive care unit. downgraded to the medical floor on 01/11 acute pancreatitis secondary to elevated TG s/p insulin drip TG down to 551 from 1499, started on gemfibrozil continue empiric abx for 48 hrs per ICU rec on full liquid diet, still with abdominal pain DKA secondary to acute pancreatitis resolved s/p insulin drip, on Lantus SQ will check Hba1c, not on insulin at baseline follow POCs to assess insulin needs metformin on hold seizure disorder multiple seizures on day of admission - initially thought to be due to medication non compliance (per our refill history - has not picked up dilantin since september but pt states she gets meds from [facility] pharmacy and therefore may not show up in our system) metabolic abnormalities r/t DKA/pancreatitis on dilantin 100 q8h at baseline - pt states she usually takes it twice daily due to fatigue when she takes it three times a day no seizures since admission currently receiving 200 IV TID - dilantin level 18.8, within normal range; will transition to PO at current dose recommend to check repeat level 5-8 days after dose adjustment (higher dose started 01/10- next repeat end of the week) AYANNA r/t DKA resolved acute hypokalemia resolved acute Hypomagnesemia replace and follow levels HTN lisinopril/HCTZ on hold for AYANNA. BP soft, resume as bp allows mood resume sertraline dvt ppx - heparin attending - dr. church patient requires ongoing inpatient stay for management of acute pancreatitis Time Spent With Patient Time: Total time managing care of this patient today ____ minutes. Quality Stroke Does the patient have a stroke diagnosis?: No VTE Prior VTE?: No VTE Risk Level:: Medical - moderate - high VTE Device Contraindication: Treatment Not Indicated VTE Drug Contraindication: N/A - Med Ordered
[2023-01-12] MEDS: ondansetron HCL 4 MG/2 ML VIAL IVPUSH (21:20)
[2023-01-13] VITALS (10 sets, daily range): BP systolic 106–158; BP diastolic 61–87; PULSE 67–91; RESP 16–20; TEMP 36.2–37.1; O2SAT 98–100; BMI 29.5
[2023-01-13] MEDS: ondansetron HCL 4 MG/2 ML VIAL IVPUSH ×2 (02:56→08:36)
[2023-01-13 07:28] LABS: Alanine Aminotransferase 58 U/L (0-31); Albumin Level 3.1 g/dL (3.5-5.0); Alkaline Phosphatase 150 U/L (39-117); Anion Gap 15 (12-20); Aspartate Amino Transferase 21 U/L (5-31); Bilirubin Direct 0.1 mg/dL (0.0-0.5); Bilirubin Total 0.3 mg/dL (0.0-1.0); Blood Urea Nitrogen 5 mg/dL (9-16); Calcium 9.3 mg/dL (8.4-10.2); Carbon Dioxide 20 mmol/L (22-29); Chloride 111 mmol/L (96-108); Creatinine Clr Calc Pharmacy 60.4; Estimated Glomerular Filt Rate > 60; Glucose Random 195 mg/dL (60-115); Magnesium 1.6 mg/dL (1.6-2.6); Potassium 3.7 mmol/L (3.3-5.1); Sodium 142 mmol/L (135-145); Total Protein 6.1 g/dL (6.5-8.0); Triglycerides 453 mg/dL
[2023-01-13] MEDS: Insulin Lispro 100 UNIT/ML 3 ML VIAL SUBCUT ×3 (08:26→20:02)
[2023-01-13] MEDS: Heparin Sodium,Porcine 5,000 UNIT/ML VIAL 5000 UNIT SUBCUT ×2 (08:26→20:02)
[2023-01-13] MEDS: Sertraline HCL 50 MG TABLET PO (08:27)
[2023-01-13] MEDS: Insulin Glargine,Hum.rec.anlog 100 UNIT/ML 10 ML VIAL SUBCUT (08:27)
[2023-01-13] MEDS: gemfibroziL 600 MG TABLET PO ×2 (08:27→16:53)
--- NOTE | 2023-01-13 09:57 | HO.PM.IMPN ---
Subjective Subjective Date of Service: 01/13/23 Interval History: seen and examined this morning follow up for DKA, pancreatitis, seizures; downgraded from ICU 01/11 no recurrent seizure activity still reporting abdominal pain Review of Systems Review of Systems: Yes all other systems are reviewed and are negative Constitutional Constitutional: Denies chills and Denies fever(s) Cardiovascular Cardiovascular: Denies chest pain, Denies palpitations and Denies dyspnea Respiratory Respiratory: Denies cough and Denies dyspnea Gastrointestinal Gastrointestinal: Reports abdominal pain, Denies nausea and Denies vomiting Endocrine Endocrine: Denies palpitations Physical Exam Vital Signs: Vital Signs: Last Vital Signs Temp 97.1 F 01/13/23 07:17 Pulse 91 01/13/23 07:48 Resp 18 01/13/23 08:16 BP 158/73 H 01/13/23 07:17 Pulse Ox 99 01/13/23 07:17 O2 Del Method Room Air 01/13/23 07:17 BMI result Body Mass Index 29.5 Appearing in no acute distress lung sounds are clear to auscultation heart regular rate rhythm, clear S1, S2 positive bowel sounds, abdomen is soft, nontender neuro patient is alert x3, no focal deficits Objective Data Active Medications Albuterol Sulfate (Albuterol Sulfate 90 Mcg 8 Gm Inhaler) 2 puff INHALE Q4H PRN PRN Reason: Wheezing Dextrose (Dextrose 50 % 25 Gm/50 Ml Syringe) 25 gm IVPUSH Q30M PRN PRN Reason: BG < 70 Last Admin: 01/11/23 01:09 Dose: 25 gm Documented By: MARCELINO Fluticasone Propionate (Fluticasone Propionate 100 Mcg Blst.W.Dev) 1 puff INHALE RBID [facility] Last Admin: 01/13/23 07:46 Dose: 1 puff Documented By: BENITA Gemfibrozil (Gemfibrozil 600 Mg Tablet) 600 mg PO BIDAC [facility] Last Admin: 01/13/23 08:27 Dose: 600 mg Documented By: TOSHIA Heparin Sodium (Porcine) (Heparin Sodium,Porcine 5,000 Unit/Ml Vial) 5,000 unit SUBCUT TID [facility] Last Admin: 01/13/23 08:26 Dose: 5,000 unit Documented By: TOSHIA Piperacillin Sod/Tazobactam (Sod 3.375 gm/ Sodium Chloride) 50 mls @ 100 mls/hr IV Q6H [facility] Last Admin: 01/13/23 08:20 Dose: 100 mls/hr Documented By: TOSHIA Lactated Ringer's (Lr) 1,000 mls @ 125 mls/hr IVCONT .Q8H [facility] Last Admin: 01/13/23 03:10 Dose: 125 mls/hr Documented By: BETY Insulin Glargine (Insulin Glargine,Hum.Rec.Anlog 100 Unit/Ml 10 Ml Vial) 5 unit SUBCUT DAILY [facility] Last Admin: 01/13/23 08:27 Dose: 5 unit Documented By: TOSHIA Insulin Human Lispro (Insulin Lispro 100 Unit/Ml 3 Ml Vial) 0 unit SUBCUT QIDACHS [facility]; Protocol Last Admin: 01/13/23 08:26 Dose: 2 unit Documented By: TOSHIA Morphine Sulfate (Morphine Sulfate 2 Mg/Ml Cartridge) 2 mg IVPUSH Q4H PRN; Protocol PRN Reason: Pain, Severe (Pain Scale 7-10) Last Admin: 01/13/23 08:16 Dose: 2 mg Documented By: TOSHIA Ondansetron HCl (Ondansetron Hcl 4 Mg/2 Ml Vial) 4 mg IVPUSH Q6H PRN PRN Reason: Nausea Last Admin: 01/13/23 08:36 Dose: 4 mg Documented By: TOSHIA Phenytoin Sodium (Phenytoin Sodium Extended 100 Mg Capsule) 200 mg PO TID [facility] Last Admin: 01/13/23 08:28 Dose: 200 mg Documented By: TOSHIA Sertraline HCl (Sertraline Hcl 50 Mg Tablet) 50 mg PO DAILY [facility] Last Admin: 01/13/23 08:27 Dose: 50 mg Documented By: TOSHIA Labs 01/12/23 05:57 01/13/23 06:10 Labs: Laboratory Results - last 24 hr 01/12/23 01/12/23 01/12/23 05:57 09:55 11:12 Anion Gap Estim Creat Clear Calc Estimated GFR POC Glucose 400 H* Random Glucose Estimat Average Glucose TNP Hemoglobin A1c % > 14.0 Calcium Magnesium Total Bilirubin Direct Bilirubin AST ALT Alkaline Phosphatase Total Protein Albumin Triglycerides Phenytoin 18.8 01/12/23 01/12/23 01/13/23 15:43 20:33 06:10 Anion Gap 15 Estim Creat Clear Calc 60.4 Estimated GFR > 60 POC Glucose 138 H 239 H Random Glucose 195 H Estimat Average Glucose Hemoglobin A1c % Calcium 9.3 Magnesium 1.6 Total Bilirubin 0.3 Direct Bilirubin 0.1 AST 21 ALT 58 H Alkaline Phosphatase 150 H Total Protein 6.1 L Albumin 3.1 L Triglycerides 453 Phenytoin 01/13/23 07:45 Anion Gap Estim Creat Clear Calc Estimated GFR POC Glucose 174 H Random Glucose Estimat Average Glucose Hemoglobin A1c % Calcium Magnesium Total Bilirubin Direct Bilirubin AST ALT Alkaline Phosphatase Total Protein Albumin Triglycerides Phenytoin Assessment and Plan (1) AYANNA (acute kidney injury): Status: Acute (2) DKA (diabetic ketoacidosis): Status: Acute Plan This is a 52-year-old female with underlying history of diabetes mellitus, peripheral vascular disease, seizures admitted on 01/09/2023 with 3 day history of abdominal discomfort and vomiting and several episodes of seizure like episodes on the day of admission.?On ER evaluation patient noted to have pancreatitis with diabetic ketoacidosis and hypertriglyceridemia.? She was started on insulin drip and admitted to intensive care unit. downgraded to the medical floor on 01/11 Acute pancreatitis secondary to elevated TG s/p insulin drip TG down to 551 from 1499, started on gemfibrozil continue empiric abx for 48 hrs per ICU rec on full liquid diet, still with abdominal pain DKA resolved s/p insulin drip, on Lantus SQ Hba1c 14.0, not on insulin at baseline follow POCs to assess insulin needs metformin on hold seizure disorder multiple seizures on day of admission - initially thought to be due to medication non compliance (per our refill history - has not picked up dilantin since september but pt states she gets meds from [facility] pharmacy and therefore may not show up in our system) metabolic abnormalities r/t DKA/pancreatitis on dilantin 100 q8h at baseline - pt states she usually takes it twice daily due to fatigue when she takes it three times a day no seizures since admission currently receiving 200 IV TID - dilantin level 18.8, within normal range; will transition to PO at current dose recommend to check repeat level 5-8 days after dose adjustment (higher dose started 01/10- next repeat end of the week) AYANNA r/t DKA resolved acute hypokalemia resolved acute Hypomagnesemia replace and follow levels HTN lisinopril/HCTZ on hold for AYANNA. BP soft, resume as bp allows mood resume sertraline dvt ppx - heparin attending - dr. Veronica patient requires ongoing inpatient stay for management of acute pancreatitis Time Spent With Patient Time: Total time managing care of this patient today ____ minutes. Quality Stroke Does the patient have a stroke diagnosis?: No VTE Prior VTE?: No VTE Risk Level:: Medical - moderate - high VTE Device Contraindication: Treatment Not Indicated VTE Drug Contraindication: N/A - Med Ordered
--- NOTE | 2023-01-13 10:39 | MHC.CM.PN ---
EMR reviewed and per MD rounds, pt not medically cleared for D/C due to ongoing management of acute pancreatitis, pt remains on a full liquid diet and will need to advance and tolerate a solid diet prior to D/C. CM will continue to follow.
--- NOTE | 2023-01-13 17:40 | PM.EVENT ---
Event Note Date of Service: 01/13/23 Event Note: Fall in BR. unwitnessed. Patient reported that she passed out . Has an abrasion to her knee, no injury to head Also had a witnessed seizure while back in bed after fall, lasting about 1 min. no postical period Plan Brain CT stat Continue dilantin and consult neurology for medication adjustment Time Spent With Patient Time: Total time managing care of this patient today ____ minutes.
--- NOTE | 2023-01-13 20:48 | PC.NURSE ---
Addendum entered by Gabino Dumont RN 01/13/23 21:13: 5 x BMs today, loose, dark brown. CELL POURER notified, new order for C.Diff stool. Patient placed on contact precaitions Original Note: Assumed care at 07:00am, patient alert and oriented, Seizure history, seizure precautions. Moves all extremities. Reports a prodrome of unusual sensation in legs. Patient with pain in left upper quadrant repeatedly today, worse around meals. Patient medicated with IV morphine as ordered. Patient with a fall today about 17:00, while under observation in the bathroom, and slid to floor, striking left knee and sustaining abrasion on left knee, no other apparent injury, unable to rule out headstrike. Vital signs BP164/95, SpO2 100%; HR 85; RR 31; T 98.2. Patient denied hitting head, but seemed to endorse possibly having lost consciousness, upon returning to bed, initially denied other injury, then said she was having a seizure, then began having a seizure for 1.5 minutes at 17:08, involving full body contractions, and then reported sternal chest pain upon regaining consciousness, worse on deep inspiration, unable to rate pain, sharp, midsternal, limited assessment, repeat seizure of 30 seconds duration. CELL POURER notified, and up to bedside to assess. EKG taken and reviewed, IVP morphine with good effect. Patient taken for head CT after IVP ativan, new order. Sz precautions in effect, now using commode instead of BR, and telesitter placed. Patient has new neuro consult for evaluation of seizure medications. [facility] force adjustment supervisor notified.
[2023-01-14] VITALS (8 sets, daily range): BP systolic 124–161; BP diastolic 68–80; PULSE 69–78; RESP 16–20; TEMP 36.2–36.8; O2SAT 96–100
[2023-01-14] MEDS: ondansetron HCL 4 MG/2 ML VIAL IVPUSH ×2 (03:50→08:25)
[2023-01-14] MEDS: Heparin Sodium,Porcine 5,000 UNIT/ML VIAL 5000 UNIT SUBCUT (08:22)
[2023-01-14] MEDS: Insulin Glargine,Hum.rec.anlog 100 UNIT/ML 10 ML VIAL SUBCUT (08:23)
[2023-01-14] MEDS: Sertraline HCL 50 MG TABLET PO (08:23)
[2023-01-14] MEDS: gemfibroziL 600 MG TABLET PO ×2 (08:23→16:44)
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
[2023-01-14] MEDS: Insulin Lispro 100 UNIT/ML 3 ML VIAL SUBCUT ×3 (12:19→21:24)
--- NOTE | 2023-01-14 14:23 | HO.PM.IMPN ---
Subjective Subjective Date of Service: 01/14/23 Interval History: seen and examined this morning follow up for DKA, pancreatitis, seizures; downgraded from ICU 01/11 no recurrent seizure activity feeling better, less pain good appetite Review of Systems Review of Systems: Yes all other systems are reviewed and are negative Constitutional Constitutional: Denies chills and Denies fever(s) Cardiovascular Cardiovascular: Denies chest pain, Denies palpitations and Denies dyspnea Respiratory Respiratory: Denies cough and Denies dyspnea Gastrointestinal Gastrointestinal: Reports abdominal pain, Denies nausea and Denies vomiting Endocrine Endocrine: Denies palpitations Physical Exam Vital Signs: Vital Signs: Last Vital Signs Temp 98.0 F 01/14/23 11:51 Pulse 74 01/14/23 11:51 Resp 20 01/14/23 11:51 BP 138/74 01/14/23 11:51 Pulse Ox 99 01/14/23 11:51 O2 Del Method Room Air 01/14/23 11:51 BMI result Body Mass Index 29.5 Appearing in no acute distress lung sounds are clear to auscultation heart regular rate rhythm, clear S1, S2 positive bowel sounds, abdomen is soft, nontender neuro patient is alert x3, no focal deficits Objective Data Active Medications Albuterol Sulfate (Albuterol Sulfate 90 Mcg 8 Gm Inhaler) 2 puff INHALE Q4H PRN PRN Reason: Wheezing Dextrose (Dextrose 50 % 25 Gm/50 Ml Syringe) 25 gm IVPUSH Q30M PRN PRN Reason: BG < 70 Last Admin: 01/11/23 01:09 Dose: 25 gm Documented By: MARCELINO Fluticasone Propionate (Fluticasone Propionate 100 Mcg Blst.W.Dev) 1 puff INHALE RBID [facility] Last Admin: 01/14/23 08:01 Dose: 1 puff Documented By: BENITA Gemfibrozil (Gemfibrozil 600 Mg Tablet) 600 mg PO BIDAC [facility] Last Admin: 01/14/23 08:23 Dose: 600 mg Documented By: DANTE Heparin Sodium (Porcine) (Heparin Sodium,Porcine 5,000 Unit/Ml Vial) 5,000 unit SUBCUT TID [facility] Last Admin: 01/14/23 08:22 Dose: 5,000 unit Documented By: DANTE Piperacillin Sod/Tazobactam (Sod 3.375 gm/ Sodium Chloride) 50 mls @ 100 mls/hr IV Q6H [facility] Last Infusion: 01/14/23 09:03 Dose: 0 mls/hr Documented By: DANTE Insulin Glargine (Insulin Glargine,Hum.Rec.Anlog 100 Unit/Ml 10 Ml Vial) 5 unit SUBCUT DAILY [facility] Last Admin: 01/14/23 08:23 Dose: 5 unit Documented By: DANTE Insulin Human Lispro (Insulin Lispro 100 Unit/Ml 3 Ml Vial) 0 unit SUBCUT QIDACHS [facility]; Protocol Last Admin: 01/14/23 12:19 Dose: 4 unit Documented By: DANTE Morphine Sulfate (Morphine Sulfate 2 Mg/Ml Cartridge) 2 mg IVPUSH Q4H PRN; Protocol PRN Reason: Pain, Severe (Pain Scale 7-10) Last Admin: 01/14/23 08:26 Dose: 2 mg Documented By: DANTE Ondansetron HCl (Ondansetron Hcl 4 Mg/2 Ml Vial) 4 mg IVPUSH Q6H PRN PRN Reason: Nausea Last Admin: 01/14/23 08:25 Dose: 4 mg Documented By: DANTE Phenytoin Sodium (Phenytoin Sodium Extended 100 Mg Capsule) 200 mg PO TID [facility] Last Admin: 01/14/23 08:22 Dose: 200 mg Documented By: DANTE Sertraline HCl (Sertraline Hcl 50 Mg Tablet) 50 mg PO DAILY [facility] Last Admin: 01/14/23 08:23 Dose: 50 mg Documented By: DANTE Labs 01/14/23 05:58 01/14/23 05:58 Labs: Laboratory Results - last 24 hr 01/13/23 01/13/23 01/13/23 15:56 17:39 19:55 MCV MCH MCHC RDW Plt Count MPV Absolute Nucleated RBC Nucleated RBC % (auto) Anion Gap Estim Creat Clear Calc Estimated GFR POC Glucose 174 H 142 H 199 H Random Glucose Calcium Iron TIBC % Saturation Unsat Iron Binding Stool Occult Blood C. difficile Tox B Gene 01/14/23 01/14/23 01/14/23 05:58 05:58 05:58 MCV 89.0 MCH 30.1 MCHC 33.8 RDW 13.6 Plt Count 194 MPV 10.7 Absolute Nucleated RBC 0.000 Nucleated RBC % (auto) 0.0 Anion Gap 15 Estim Creat Clear Calc 65.1 Estimated GFR > 60 POC Glucose Random Glucose 151 H Calcium 9.0 Iron 66 TIBC 149 L % Saturation 44 Unsat Iron Binding 83 Stool Occult Blood C. difficile Tox B Gene 01/14/23 01/14/23 01/14/23 07:56 10:21 10:25 MCV MCH MCHC RDW Plt Count MPV Absolute Nucleated RBC Nucleated RBC % (auto) Anion Gap Estim Creat Clear Calc Estimated GFR POC Glucose 144 H 315 H Random Glucose Calcium Iron TIBC % Saturation Unsat Iron Binding Stool Occult Blood C. difficile Tox B Gene NEGATIVE 01/14/23 01/14/23 10:25 11:50 MCV MCH MCHC RDW Plt Count MPV Absolute Nucleated RBC Nucleated RBC % (auto) Anion Gap Estim Creat Clear Calc Estimated GFR POC Glucose 208 H Random Glucose Calcium Iron TIBC % Saturation Unsat Iron Binding Stool Occult Blood NEGATIVE C. difficile Tox B Gene Assessment and Plan (1) AYANNA (acute kidney injury): Status: Acute (2) DKA (diabetic ketoacidosis): Status: Acute Plan This is a 52-year-old female with underlying history of diabetes mellitus, peripheral vascular disease, seizures admitted on 01/09/2023 with 3 day history of abdominal discomfort and vomiting and several episodes of seizure like episodes on the day of admission.?On ER evaluation patient noted to have pancreatitis with diabetic ketoacidosis and hypertriglyceridemia.? She was started on insulin drip and admitted to intensive care unit. downgraded to the medical floor on 01/11 Acute pancreatitis secondary to elevated TG s/p insulin drip TG down to 551 from 1499, started on gemfibrozil diet advanced seizure disorder likely underdosed at home multiple seizures on day of admission - no seizures since admission on dilantin 100 q8h at baseline but has only been taking twice daily now on dilantin 200mg TID Acute hypokalemia resolved DKA resolved s/p insulin drip, on Lantus SQ Hba1c 14.0, not on insulin at baseline follow POCs to assess insulin needs metformin on hold AYANNA r/t DKA resolved acute Hypomagnesemia replace and follow levels HTN lisinopril/HCTZ on hold for AYANNA. BP soft, resume as bp allows mood resume sertraline dvt ppx - heparin attending - dr. Watkins patient requires ongoing inpatient stay for management of acute pancreatitis Time Spent With Patient Time: Total time managing care of this patient today ____ minutes. Quality Stroke Does the patient have a stroke diagnosis?: No VTE Prior VTE?: No VTE Risk Level:: Medical - moderate - high VTE Device Contraindication: Treatment Not Indicated VTE Drug Contraindication: N/A - Med Ordered
[2023-01-15] VITALS (8 sets, daily range): BP systolic 124–159; BP diastolic 67–92; PULSE 78–94; RESP 18–20; TEMP 36–37.1; O2SAT 97–99
[2023-01-15] MEDS: ondansetron HCL 4 MG/2 ML VIAL IVPUSH ×2 (03:28→09:53)
[2023-01-15] MEDS: gemfibroziL 600 MG TABLET PO ×2 (08:27→15:37)
[2023-01-15] MEDS: Sertraline HCL 50 MG TABLET PO (08:28)
[2023-01-15] MEDS: Insulin Glargine,Hum.rec.anlog 100 UNIT/ML 10 ML VIAL SUBCUT (08:35)
[2023-01-15] MEDS: Insulin Lispro 100 UNIT/ML 3 ML VIAL SUBCUT ×3 (11:37→21:34)
--- NOTE | 2023-01-15 14:38 | MHC.CM.PN ---
EMR reviewed and per MD rounds, pt is not medically cleared for D/C due to continued need for management of acute pancreatitis. CM will continue to follow.
--- NOTE | 2023-01-15 15:32 | HO.PM.IMPN ---
Subjective Subjective Date of Service: 01/15/23 Interval History: Patient seen and evaluated this morning at bedside Follow-up for DKA, pancreatitis, seizures; downgraded from ICU on 01/11/2023 No recent seizure activity Patient's diet was advanced to normal, with able to tolerate yesterday Patient states she vomited up her breakfast shortly after eating it Continues to have nausea with [id number] abdominal pain, mostly. Umbilical and radiating to back Complains of slight headache Patient also complains of sharp shooting chest pain with associated chest pressure that lasted for 20 minutes Review of Systems Nausea and vomiting this morning Central abdominal pain radiating to the back Chest pain/pressure like a ?heaviness or ?weight? on her chest Review of Systems: Yes all other systems are reviewed and are negative Physical Exam Vital Signs: Vital Signs: Last Vital Signs Temp 97 F 01/15/23 15:20 Pulse 83 01/15/23 15:20 Resp 18 01/15/23 15:20 BP 138/67 01/15/23 15:20 Pulse Ox 99 01/15/23 15:20 O2 Del Method Room Air 01/15/23 15:20 BMI result Body Mass Index 29.5 General: AOx3, no acute distress Resp: CTA bilaterally CVS: S1, S2, RRR GI: +BS, left-sided and central abdominal pain, no distention Skin: No rash Neuro: Cranial nerves II-XII grossly intact bilaterally. Motor grossly intact bilaterally Extremities: No edema Psych: Appropriate affect Objective Data Active Medications Albuterol Sulfate (Albuterol Sulfate 90 Mcg 8 Gm Inhaler) 2 puff INHALE Q4H PRN PRN Reason: Wheezing Dextrose (Dextrose 50 % 25 Gm/50 Ml Syringe) 25 gm IVPUSH Q30M PRN PRN Reason: BG < 70 Last Admin: 01/11/23 01:09 Dose: 25 gm Documented By: MARCELINO Fluticasone Propionate (Fluticasone Propionate 100 Mcg Blst.W.Dev) 1 puff INHALE RBID [facility] Last Admin: 01/15/23 07:40 Dose: 1 puff Documented By: BENITA Gemfibrozil (Gemfibrozil 600 Mg Tablet) 600 mg PO BIDAC [facility] Last Admin: 01/15/23 08:27 Dose: 600 mg Documented By: HECTOR Heparin Sodium (Porcine) (Heparin Sodium,Porcine 5,000 Unit/Ml Vial) 5,000 unit SUBCUT BID [facility] Last Admin: 01/15/23 08:28 Dose: 5,000 unit Documented By: HECTOR Magnesium Sulfate (Magnesium Sulfate/H2o) 2 gm in 50 mls @ 25 mls/hr IV ONCE ONE Stop: 01/15/23 16:29 Insulin Glargine (Insulin Glargine,Hum.Rec.Anlog 100 Unit/Ml 10 Ml Vial) 5 unit SUBCUT DAILY [facility] Last Admin: 01/15/23 08:35 Dose: 5 unit Documented By: HECTOR Insulin Human Lispro (Insulin Lispro 100 Unit/Ml 3 Ml Vial) 0 unit SUBCUT QIDACHS [facility]; Protocol Last Admin: 01/15/23 11:37 Dose: 2 unit Documented By: HECTOR Morphine Sulfate (Morphine Sulfate 2 Mg/Ml Cartridge) 2 mg IVPUSH Q8H PRN; Protocol PRN Reason: Pain, Severe (Pain Scale 7-10) Last Admin: 01/15/23 11:37 Dose: 2 mg Documented By: HECTOR Ondansetron HCl (Ondansetron Hcl 4 Mg/2 Ml Vial) 4 mg IVPUSH Q6H PRN PRN Reason: Nausea Last Admin: 01/15/23 09:53 Dose: 4 mg Documented By: HECTOR Phenytoin Sodium (Phenytoin Sodium Extended 100 Mg Capsule) 200 mg PO TID [facility] Last Admin: 01/15/23 08:27 Dose: 200 mg Documented By: HECTOR Sertraline HCl (Sertraline Hcl 50 Mg Tablet) 50 mg PO DAILY [facility] Last Admin: 01/15/23 08:28 Dose: 50 mg Documented By: HECTOR Labs 01/14/23 05:58 01/15/23 06:09 Labs: Laboratory Results - last 24 hr 01/14/23 01/14/23 01/15/23 16:15 20:21 06:09 Anion Gap Estim Creat Clear Calc Estimated GFR POC Glucose 160 H 162 H Random Glucose Calcium Magnesium Troponin I High Sens Lipase 100 H 01/15/23 01/15/23 01/15/23 06:09 07:24 11:06 Anion Gap 16 Estim Creat Clear Calc 62.7 Estimated GFR > 60 POC Glucose 139 H 186 H Random Glucose 156 H Calcium 8.9 Magnesium 1.2 L* Troponin I High Sens Lipase 01/15/23 12:23 Anion Gap Estim Creat Clear Calc Estimated GFR POC Glucose Random Glucose Calcium Magnesium Troponin I High Sens < 2.7 Lipase Microbiology Microbiology Results: Microbiology 01/09/23 18:52 Blood Culture - Final Blood - Venous No growth after 5 days. 01/09/23 18:52 Blood Culture - Final Blood - Venous No growth after 5 days. Assessment and Plan (1) Nausea & vomiting: Status: Acute (2) DKA (diabetic ketoacidosis): Status: Acute (3) Acute pancreatitis: Status: Acute Plan This is a 52-year-old female with underlying history of diabetes mellitus, peripheral vascular disease, seizures admitted on 01/09/2023 with 3 day history of abdominal discomfort and vomiting and several episodes of seizure like episodes on the day of admission.?On ER evaluation patient noted to have pancreatitis with diabetic ketoacidosis and hypertriglyceridemia.? She was started on insulin drip and admitted to intensive care unit. downgraded to the medical floor on 01/11 Acute pancreatitis secondary to elevated TG s/p insulin drip TG down to 453 from 1499, started on gemfibrozil Pt experienced N/V after breakfast after diet advanced Will placed back on a full liquid diet for the rest of the day Advanced diet tomorrow a.m. as tolerated Chest pain/pressure EKG showed normal sinus rhythm without evidence of ST elevations or depressions Initial troponin negative, will repeat in 3 hours seizure disorder likely underdosed at home multiple seizures on day of admission - no seizures since admission on dilantin 100 q8h at baseline but has only been taking twice daily now on dilantin 200mg TID Acute hypokalemia Patient again has hypokalemia at 3.0 Will give potassium 40 mEq packet DKA resolved s/p insulin drip, on Lantus SQ Hba1c 14.0, not on insulin at baseline follow POCs to assess insulin needs metformin on hold AYANNA r/t DKA resolved Acute Hypomagnesemia Patient's magnesium 1.2 today Will give 4 g IV Mag Replace and follow levels HTN lisinopril/HCTZ initially on hold for AYANNA Will resume d/t increasing BP mood disorder resume sertraline dvt ppx - heparin Attending - Dr. Valadez Patient requires ongoing inpatient stay for management of acute pancreatitis Time Spent With Patient Time: Total time managing care of this patient today ____ minutes. Quality Stroke Does the patient have a stroke diagnosis?: No VTE Prior VTE?: No VTE Risk Level:: Medical - moderate - high VTE Device Contraindication: Treatment Not Indicated VTE Drug Contraindication: N/A - Med Ordered
[2023-01-16] VITALS (8 sets, daily range): BP systolic 119–134; BP diastolic 57–76; PULSE 68–88; RESP 16–20; TEMP 36.1–37.2; O2SAT 94–100
[2023-01-16] MEDS: ondansetron HCL 4 MG/2 ML VIAL IVPUSH ×2 (04:55→15:56)
[2023-01-16 07:07] LABS: Magnesium 1.8 mg/dL (1.6-2.6)
[2023-01-16] MEDS: Insulin Glargine,Hum.rec.anlog 100 UNIT/ML 10 ML VIAL SUBCUT (08:26)
[2023-01-16] MEDS: Insulin Lispro 100 UNIT/ML 3 ML VIAL SUBCUT ×4 (08:27→20:41)
[2023-01-16] MEDS: Sertraline HCL 50 MG TABLET PO (08:29)
[2023-01-16] MEDS: gemfibroziL 600 MG TABLET PO ×2 (08:30→17:12)
[2023-01-16] MEDS: LORazepam 0.5 MG TABLET PO (11:04)
--- NOTE | 2023-01-16 12:46 | HO.PM.IMPN ---
Subjective Subjective Date of Service: 01/16/23 Interval History: seen and examined this morning follow up for pancreatitis reporting epigastric pain, vomiting x1 this am no further seizure activity Review of Systems Review of Systems: Yes all other systems are reviewed and are negative Constitutional Constitutional: Denies chills and Denies fever(s) ENT Ears, Nose, Mouth, and Throat: Denies dizziness Cardiovascular Cardiovascular: Denies chest pain, Denies palpitations and Denies dyspnea Respiratory Respiratory: Denies cough and Denies dyspnea Gastrointestinal Gastrointestinal: Reports abdominal pain, Denies diarrhea, Reports nausea and Reports vomiting Neurologic Neurologic: Denies dizziness Endocrine Endocrine: Denies palpitations Physical Exam Vital Signs: Vital Signs: Last Vital Signs Temp 98.9 F 01/16/23 07:28 Pulse 88 01/16/23 08:13 Resp 16 01/16/23 08:13 BP 133/71 01/16/23 07:28 Pulse Ox 98 01/16/23 07:28 O2 Del Method Room Air 01/16/23 07:28 BMI result Body Mass Index 29.5 Const: General: cooperative, comfortable, no acute distress, alert and awake Nutritional Appearance: average body habitus Orientation/consciousness: patient oriented x3 Eyes: Pupils: Equal, round and reactive pupils present Resp: Effort & Inspection: normal respiratory effort, able to speak in complete sentences, no respiratory distress and no use of accessory muscles Cardio: Rate: regular rate Heart sounds: S1 normal heart sound present and S2 normal heart sound present GI: Other: epigastric tenderness Inspection: No distended Palpation (GI): Soft to palpation and no guarding Neuro: General: patient oriented x3, moves all extremities and CN's II-XI intact bilaterally Cranial nerves: Yes Equal, round and reactive pupils present Extrem: General: Yes no pedal edema Objective Data Active Medications Albuterol Sulfate (Albuterol Sulfate 90 Mcg 8 Gm Inhaler) 2 puff INHALE Q4H PRN PRN Reason: Wheezing Lisinopril 10 mg/ (Hydrochlorothiazide 12.5 mg) 0 mg PO DAILY [facility] Last Admin: 01/16/23 08:28 Dose: 1 tablet Documented By: STEVEN Dextrose (Dextrose 50 % 25 Gm/50 Ml Syringe) 25 gm IVPUSH Q30M PRN PRN Reason: BG < 70 Last Admin: 01/11/23 01:09 Dose: 25 gm Documented By: MARCELINO Fluticasone Propionate (Fluticasone Propionate 100 Mcg Blst.W.Dev) 1 puff INHALE RBID [facility] Last Admin: 01/16/23 08:13 Dose: 1 puff Documented By: RIVER Gemfibrozil (Gemfibrozil 600 Mg Tablet) 600 mg PO BIDAC [facility] Last Admin: 01/16/23 08:30 Dose: 600 mg Documented By: STEVEN Heparin Sodium (Porcine) (Heparin Sodium,Porcine 5,000 Unit/Ml Vial) 5,000 unit SUBCUT BID [facility] Last Admin: 01/16/23 08:26 Dose: 5,000 unit Documented By: STEVEN Insulin Glargine (Insulin Glargine,Hum.Rec.Anlog 100 Unit/Ml 10 Ml Vial) 5 unit SUBCUT DAILY [facility] Last Admin: 01/16/23 08:26 Dose: 5 unit Documented By: STEVEN Insulin Human Lispro (Insulin Lispro 100 Unit/Ml 3 Ml Vial) 0 unit SUBCUT QIDACHS [facility]; Protocol Last Admin: 01/16/23 12:06 Dose: 2 unit Documented By: STEVEN Levetiracetam (Levetiracetam 500 Mg Tablet) 500 mg PO BID [facility] Last Admin: 01/16/23 08:29 Dose: 500 mg Documented By: STEVEN Morphine Sulfate (Morphine Sulfate 2 Mg/Ml Cartridge) 2 mg IVPUSH Q8H PRN; Protocol PRN Reason: Pain, Severe (Pain Scale 7-10) Last Admin: 01/16/23 04:56 Dose: 2 mg Documented By: ELLEN Ondansetron HCl (Ondansetron Hcl 4 Mg/2 Ml Vial) 4 mg IVPUSH Q6H PRN PRN Reason: Nausea Last Admin: 01/16/23 04:55 Dose: 4 mg Documented By: ELLEN Phenytoin Sodium (Phenytoin Sodium Extended 100 Mg Capsule) 100 mg PO DAILY [facility] Stop: 01/18/23 08:59 Last Admin: 01/16/23 08:29 Dose: 100 mg Documented By: STEVEN Sertraline HCl (Sertraline Hcl 50 Mg Tablet) 50 mg PO DAILY [facility] Last Admin: 01/16/23 08:29 Dose: 50 mg Documented By: STEVEN Labs 01/14/23 05:58 01/16/23 07:42 Labs: Laboratory Results - last 24 hr 01/15/23 01/15/23 01/15/23 12:23 16:13 16:20 Anion Gap Estim Creat Clear Calc Estimated GFR POC Glucose 209 H Random Glucose Calcium Magnesium Troponin I High Sens < 2.7 < 2.7 01/15/23 01/16/23 01/16/23 19:59 06:10 07:10 Anion Gap Estim Creat Clear Calc Estimated GFR POC Glucose 258 H 202 H Random Glucose Calcium Magnesium 1.8 Troponin I High Sens 01/16/23 01/16/23 07:42 11:26 Anion Gap 14 Estim Creat Clear Calc 66.7 Estimated GFR > 60 POC Glucose 196 H Random Glucose 202 H Calcium 9.1 Magnesium 1.8 Troponin I High Sens Assessment and Plan (1) Acute pancreatitis: Status: Acute Plan This is a 52-year-old female with underlying history of diabetes mellitus, peripheral vascular disease, seizures admitted on 01/09/2023 with 3 day history of abdominal discomfort and vomiting and several episodes of seizure like episodes on the day of admission.?On ER evaluation patient noted to have pancreatitis with diabetic ketoacidosis and hypertriglyceridemia.? She was started on insulin drip and admitted to intensive care unit. downgraded to the medical floor on 01/11 Acute pancreatitis secondary to elevated TG s/p insulin drip TG down to 453 from 1499, started on gemfibrozil failed diet advancement yesterday, with epigastric pain today - will obtain repeat CT abdomen continue clear liquids for now Chest pain/pressure resolved EKG with no ischemic changes trops negative seizure disorder multiple seizures on day of admission - had possible seizure 01/13 seen by neurology - rec to wean dilantin and start keppra seizure precautions Acute hypokalemia/hypomagnesemia replaced and improved DKA resolved s/p insulin drip, on Lantus SQ Hba1c 14.0, not on insulin at baseline follow POCs to assess insulin needs metformin on hold AYANNA r/t DKA resolved HTN lisinopril/HCTZ initially on hold for AYANNA mood disorder resume sertraline dvt ppx - heparin Attending - Dr. Valadez Patient requires ongoing inpatient stay for management of acute pancreatitis Time Spent With Patient Time: Total time managing care of this patient today ____ minutes. Quality Stroke Does the patient have a stroke diagnosis?: No VTE Prior VTE?: No VTE Risk Level:: Medical - moderate - high VTE Device Contraindication: Treatment Not Indicated VTE Drug Contraindication: N/A - Med Ordered
[2023-01-17 03:36] VITALS: BP 134/77; PULSE 88; RESP 16; TEMP 36.8; O2SAT 96
[2023-01-17 07:09] VITALS: BP 132/86; PULSE 85; RESP 18; TEMP 36.9; O2SAT 99
[2023-01-17] MEDS: ondansetron HCL 4 MG/2 ML VIAL IVPUSH (08:15)
[2023-01-17] MEDS: gemfibroziL 600 MG TABLET PO (08:25)
[2023-01-17] MEDS: Sertraline HCL 50 MG TABLET PO (08:26)
[2023-01-17] MEDS: Insulin Glargine,Hum.rec.anlog 100 UNIT/ML 10 ML VIAL SUBCUT (08:26)
[2023-01-17] MEDS: Insulin Lispro 100 UNIT/ML 3 ML VIAL SUBCUT (08:27)
[2023-01-17 08:42] VITALS: PULSE 88; RESP 16; O2SAT 94
--- NOTE | 2023-01-17 09:56 | PM.DS ---
DS: Providers Provider Date of Service: 01/17/23 Date of admission: 01/09/23 19:37 Date of discharge: 01/17/23 Primary care physician: Elda Menendez DO Consults: 01/13/23 17:35 Consult to Neurology Routine Consulting Provider: [facility] Reason for consultation: frequent seizures Has provider been notified: No Attending physician on discharge: Matthew Valadez Discharging clinician: Mandi Cruz DS: Diagnosis Discharge Diagnosis (1) Acute pancreatitis: Status: Acute (2) DKA (diabetic ketoacidosis): Status: Acute (3) AYANNA (acute kidney injury): Status: Acute (4) Epilepsy: Status: Acute DS: Summary Hospital Course Hospital Course: From H&P on day of admission The patient is a 52-year-old female with a past medical history of diabetes mellitus, hypertension, hypercholesteremia,? peripheral vascular disease, and seizures who presents to the emergency room? with abdominal pain and vomiting x 2-3 days. Patient partner also reported 3 episodes of seizure-like activity today. Patient was supposed to be on dilantin but hasn't fill prescription since 2022.?? In the emergency room patient initially? tachycardic to 101, respiratory rate elevated to 30s, afbrile, BP stable, reporting severe right sided abdominal pain.? Laboratory data significant for? WBC 12.1,? potassium 2.7, chloride 91, serum bicarb 18, anion gap 21, BUN 19, creatinine 1.45, serum glucose 701, lactic acid 2.6, lipase 844,? urine positive for ketones. ED course:? Patient received 5 units of regular insulin? IV, 2 mg of Ativan,? Zosyn morphine 4 mg, and Zofran This is a 52-year-old female with underlying history of diabetes mellitus, peripheral vascular disease, seizures admitted on 01/09/2023 with 3 day history of abdominal discomfort and vomiting and several episodes of seizure like episodes on the day of admission.?On ER evaluation patient noted to have acute pancreatitis with diabetic ketoacidosis and hypertriglyceridemia.? She was started on insulin drip and admitted to intensive care unit. Her anion gap improved, TG trended down and she was downgraded to the medical floor on 01/11 Acute pancreatitis secondary to elevated TG s/p treatment with insulin drip. TG down to 453 from 1499, started on gemfibrozil. had some ongoing nausea, CT scan was repeated 01/16 which showed resolution of pancreatitis. Her diet was advanced and she is currently tolerating a diabetic diet without abdominal pain or nausea at this time. If nausea persists consider outpatient GES. seizure disorder. multiple seizures on day of admission - also had seizure 01/13 although no postictal period was observed. she was seen by neurology - rec to wean dilantin and start keppra. she was started on keppra 500 mg bid and received 100 mg dilatin yesterday and day of discharge, no further dilantin moving forward. no driving/swimming alone etc until seizures until control. outpatient follow up with PCP Acute hypokalemia/hypomagnesemia. secondary to DKA/acute pancreatitis. replaced and improved DKA. resolved. s/p insulin drip. Hba1c 14.0, not on insulin at baseline. was started on low dose insulin and will be discharged home with basal/bolus insulin and increased dose of metformin. Recommend outpatient follow-up with Endocrinology. she will be discharged AYANNA. r/t DKA. resolved HTN. lisinopril/HCTZ initially on hold for AYANNA. will hold for now, outpatient follow up with PCP to determine need to continue as bp has been controlled during hospitalization Incidentally found to have bilateral ovarian cysts - recommend outpatient follow up Time Spent with Patient Time attestation: Total time managing care of this patient today ____ minutes. Discharge coordination time: Greater than 30 minutes Quality: Safe Use of Opioids Does Pt have an Active Cancer Diagnosis on the Problem List?: No Quality: Stroke Does the patient have a stroke diagnosis?: No Physical Exam Vital Signs: Vital Signs: Last Vital Signs Temp 98.4 F 01/17/23 07:09 Pulse 88 01/17/23 08:42 Resp 16 01/17/23 08:42 BP 132/86 01/17/23 07:09 Pulse Ox 99 01/17/23 07:09 O2 Del Method Room Air 01/17/23 07:09 BMI result Body Mass Index 29.5 Const: General: cooperative, comfortable, no acute distress, alert and awake Nutritional Appearance: average body habitus Orientation/consciousness: patient oriented x3 Eyes: Pupils: Equal, round and reactive pupils present Resp: Effort & Inspection: normal respiratory effort, able to speak in complete sentences, no respiratory distress and no use of accessory muscles Auscultation: not clear to auscultation bilaterally Cardio: Rate: regular rate Heart sounds: S1 normal heart sound present and S2 normal heart sound present GI: Inspection: No distended Palpation (GI): Soft to palpation, nontender and no guarding Skin: Other: warm/dry Neuro: General: patient oriented x3, moves all extremities and CN's II-XI intact bilaterally Cranial nerves: Yes Equal, round and reactive pupils present Extrem: General: Yes no pedal edema DS: Data Data Completed and Pending Labs on day of discharge: Laboratory Results - last 24 hr 01/16/23 01/16/23 01/16/23 11:26 16:10 19:55 POC Glucose 196 H 208 H 212 H 01/17/23 07:07 POC Glucose 209 H Discharge Plan Discharge Anticipated Discharge Date/Time: 01/17/23 10:34 Patient Disposition: Home Health Service Discharge Diagnosis: DKA acute pancreatitis hypokalemia elevated TG Referrals: Nicholas Le MD [Physician] - 1 Week (Uncontrolled DM. hospitalization for DKA) Elda Menendez DO [Primary Care Provider] - 1 Week Yanni Tee MD [Physician] - 1 Month Discharge Medications: New gemfibrozil 600 mg Tablet 600 mg PO BIDAC 30 Days Qty: 60 0RF levetiracetam 500 mg Tablet 500 mg PO BID 30 Days Qty: 60 0RF (DME) FreeStyle Lite Strips Strip Qty: 100 0RF Rx Instructions: Test four times a day or as directed. (DME) blood-glucose meter [FreeStyle Lite Meter] Kit Qty: 1 0RF Rx Instructions: As Directed alcohol swabs Pads, Medicated 1 pad TOPICAL QIDACHS Qty: 100 0RF Rx Instructions: Use four times a day or as directed. insulin lispro [Humalog KwikPen Insulin] 100 unit/mL insulin pen 1 sliding scale dose SUBCUT QIDACHS MDD 30 Qty: 15 0RF Rx Instructions: Blood Sugar: <150 - 0 units 151-200 - 0 units 201-250 - 4 units 251-300 - 6 units 301-350 - 8 units >350 - 10 units insulin glargine [Lantus Solostar U-100 Insulin] 100 unit/mL (3 mL) insulin pen 5 unit SUBCUT DAILY Qty: 15 0RF (DME) pen needle, diabetic 32 gauge x 1/4 needle Qty: 100 0RF Rx Instructions: Use four times a day or as directed. (DME) lancets [FreeStyle Lancets] 28 gauge misc Qty: 100 0RF Rx Instructions: Test four times a day or as directed. Continued albuterol sulfate [ProAir HFA] 90 mcg/actuation HFA aerosol inhaler 2 puff PO Q4H PRN (Reason: Wheezing) sertraline 50 mg tablet 1 tab PO DAILY fluticasone propionate [Flovent HFA] 110 mcg/actuation HFA aerosol inhaler 1 puff inhalation BID multivitamin [One Daily Multivitamin] Tablet 1 tab PO DAILY ibuprofen 600 mg tablet 600 mg PO Q6-8H PRN (Reason: low back pain) Changed metformin 500 mg tablet 1,000 mg PO BID 30 Days Qty: 120 0RF Discontinued phenytoin sodium extended 100 mg capsule 1 cap PO Q8H lisinopril-hydrochlorothiazide 10-12.5 mg tablet 1 tab PO DAILY atorvastatin 40 mg tablet 40 mg PO DAILY Discharge Orders: Discharge Order (Routine); Ordered 01/17/23 Ordered By: Mandi Cruz Diet: Diabetic diet Activity on Discharge: As tolerated Stand Alone Forms: Patient Portal Discharge page Care Plan Goals: improvement of glycemic control Health Concerns: acute pancreatitis secondary to elevated triglycerides DKA low potassium/low magnesium Plan of Treatment: check blood sugars in the morning, before meals and at bedtime, keep a log of blood sugars follow a diabetic diet recommend endocrinology evaluation dose of metformin was increased to 1000 twice daily you have been started on gemfibrozil to lower triglyceride levels. Stop taking atorvastatin and discuss need to continue with PCP your seizure medication has been changed. Stop taking Dilantin. Start taking Keppra as prescribed Do not drive/operate heavy machinery/swim alone until seizures are under control. Call to schedule follow-up appointment with Neurology stop taking lisinopril/HCTZ and discuss need to continue with PCP. blood pressure has been controlled Call to schedule follow-up appointment with PCP bilateral ovarian cyst incidental finding on imaging - recommend outpatient follow up Assessment: see discharge summary
--- NOTE | 2023-01-17 10:58 | W.MHC.F2F ---
Service Date Service Date: 01/17/23 Encounter Date of encounter: 01/17/23 Reasons for Services Signs and symptoms assessed: needs senior care for diabetic teaching and insulin instruction/teaching - new to insulin use. monitoring of blood sugar. multiple medications changes Reason for senior care: diabetic teaching, monitoring of unstable blood sugar, medication management and teach disease management MD Overseeing Care: Elda Menendez Homebound: Leaving the home is medically contraindicated at this time without the asist of a device and/or another person due th the listed conditions above and below. Reason homebound: unable to drive (recommend to avoid driving until seizures are under control ) Certification: Based on the above findings, I certify that this patient is confined to the home and needs intermittent senior care care, physical therapy and/or speech therapy, or continues to need occupational therapy. The patient is under my care, and I have initiated the establishment of the plan of care. The patient will be followed by a physician who will periodically review the plan of care. Time Spent With Patient Time: Total time managing care of this patient today ____ minutes.
--- NOTE | 2023-01-17 11:26 | MHC.CM.PN ---
Patient has been medically cleared for dc to home today with vna. A referral was made to [facility], who is aware of today's dc. PA/has approved start of care for this Friday or Friday.
== END 2023-01-17 13:37 | disposition home health service (06) | DRG 282 ==
LOC: HO.ED 19:03 → HO.EDOVER 19:43 → HO.ICU 19:45 → HO.IMC 01-11 17:25
PROVIDERS: Internal Medicine Pulmonary Disease; Physician Assistant; Student in an Organized Health Care Education/Training Program; Admitting Provider Registered Nurse Community Health; Emergency Provider Student in an Organized Health Care Education/Training Program; PCP Family Medicine; Visit Provider Physician Assistant Medical
DX: K85.10 Biliary acute pancreatitis without necrosis or infection (principal); E11.10 Type 2 diabetes mellitus with ketoacidosis without coma; N17.9 Acute kidney failure, unspecified; E11.51 Type 2 diabetes mellitus with diabetic peripheral angiopathy without gangrene; K31.84 Gastroparesis; E78.00 Pure hypercholesterolemia, unspecified; I10 Essential (primary) hypertension; G40.909 Epilepsy, unspecified, not intractable, without status epilepticus; E11.43 Type 2 diabetes mellitus with diabetic autonomic (poly)neuropathy; T42.0X6A Underdosing of hydantoin derivatives, initial encounter; E86.0 Dehydration; F41.9 Anxiety disorder, unspecified; E87.6 Hypokalemia; E83.42 Hypomagnesemia; E78.1 Pure hyperglyceridemia; Z20.822 Contact with and (suspected) exposure to COVID-19; Z79.4 Long term (current) use of insulin; Z79.84 Long term (current) use of oral hypoglycemic drugs; Z79.899 Other long term (current) drug therapy
CPT/HCPCS: 36415; 70450; 74176; 74177; 76705; 80048; 80053; 80076; 80185; 80186; 80307; 81001; 82010; 82272; 82550; 82803; 82947; 83036; 83540; 83605; 83690; 83735; 84100; 84478; 84484; 84702; 85025; 85027; 87040; 87493; 87635; 93005; 94640; 99285; J1170; J1643; J1885; J2060; J2270; J2405; J2543; J3010; J3370; J3475; P9047; Q9967

== ENCOUNTER 2023-01-24 12:12 | Outpatient (REF) | payer MEDICAID, SELFPAY ==
[2023-01-24 16:14] LABS: Amylase 173 U/L (28-100); Anion Gap 14 (12-20); Blood Urea Nitrogen 17 mg/dL (9-16); Calcium 9.7 mg/dL (8.4-10.2); Carbon Dioxide 21 mmol/L (22-29); Chloride 108 mmol/L (96-108); Estimated Glomerular Filt Rate > 60; Lipase 1055 U/L (8-78); Potassium 3.8 mmol/L (3.3-5.1); Sodium 139 mmol/L (135-145); Vitamin D 25-OH Total 33.1 ng/mL (>30)
[2023-01-24 16:31] LABS: Glucose Random 389 mg/dL (60-115)
== END 2023-01-24 12:13 | disposition home or self-care (01) ==
LOC: HO.HHCL 12:12
PROVIDERS: Visit Provider Internal Medicine
DX: E11.9 Type 2 diabetes mellitus without complications (principal); K85.80 Other acute pancreatitis without necrosis or infection; Z79.4 Long term (current) use of insulin
CPT/HCPCS: 36415; 80048; 82150; 82306; 83690

== ENCOUNTER 2023-02-03 10:54 | Outpatient (REF) | payer MEDICAID, SELFPAY ==
[2023-02-03 13:17] LABS: MANUAL DIFF FLAG NO
[2023-02-03 13:51] LABS: Basophils Percent Auto 0.3 % (0-2); Eosinophils Absolute Auto 0.2 X10*3/uL (0.0-0.4); Eosinophils Percent Auto 2.7 % (0-4); Hematocrit 36.3 % (37.0-47.0); Hemoglobin 11.7 g/dl (12.0-16.0); Imm Gran Abs Auto 0.01 X10*3/uL (0.00-0.03); Imm Gran Pct Auto 0.2 % (0.0-0.4); Lymphocytes Percent Auto 31.7 % (20-40); Mean Corpuscular HGB Conc 32.2 g/dl (31.0-35.0); Mean Corpuscular Hemoglobin 30.3 pg (27.0-33.0); Mean Platelet Volume 10.8 fL (9.4-12.3); Monocytes Absolute Auto 0.3 X10*3/uL (0.1-1.2); Monocytes Percent Auto 5.4 % (2-11); Neutrophils Absolute Auto 3.8 x10*3/uL (2.0-8.3); Neutrophils Percent Auto 59.7 % (45-73); Platelet Count 373 X10*3/uL (160-400); Red Blood Count 3.86 X10*6/uL (4.20-5.50); Red Cell Distribution Width 13.5 % (11.0-16.0); White Blood Count 6.4 X10*3/uL (4.8-10.8)
[2023-02-03 14:18] LABS: Alanine Aminotransferase 20 U/L (0-31); Albumin Level 4.3 g/dL (3.5-5.0); Alkaline Phosphatase 136 U/L (39-117); Anion Gap 13 (12-20); Aspartate Amino Transferase 12 U/L (5-31); Bilirubin Total 0.2 mg/dL (0.0-1.0); Blood Urea Nitrogen 11 mg/dL (9-16); Calcium 10.1 mg/dL (8.4-10.2); Carbon Dioxide 24 mmol/L (22-29); Chloride 108 mmol/L (96-108); Estimated Glomerular Filt Rate > 60; Glucose Random 150 mg/dL (60-115); Iron 105 mcg/dL (30-160); Percent Iron Saturation 40 % (15-50); Potassium 4.2 mmol/L (3.3-5.1); Sodium 141 mmol/L (135-145); Total Iron Binding Capacity 261 mcg/dL (228-428); Total Protein 7.8 g/dL (6.5-8.0); Unsaturated Iron Binding 156 ug/dL
[2023-02-03 14:35] LABS: Folate 7.4 ng/mL (> or = 4.0); Vitamin B12 366 pg/mL (200-900)
[2023-02-03 14:36] LABS: Ferritin 132 ng/mL (10-250); Lipase 272 U/L (8-78)
== END 2023-02-03 10:55 | disposition home or self-care (01) ==
LOC: HO.HHCL 10:54
PROVIDERS: Visit Provider Family Medicine
DX: D64.9 Anemia, unspecified (principal)
CPT/HCPCS: 36415; 80053; 82607; 82728; 82746; 83540; 83690; 85025

== ENCOUNTER 2023-02-27 08:03 | Outpatient (REF) | payer MEDICAID, SELFPAY ==
[2023-02-27 11:54] LABS: Alanine Aminotransferase 19 U/L (0-31); Albumin Level 4.2 g/dL (3.5-5.0); Alkaline Phosphatase 135 U/L (39-117); Anion Gap 13 (12-20); Aspartate Amino Transferase 12 U/L (5-31); Bilirubin Total 0.1 mg/dL (0.0-1.0); Blood Urea Nitrogen 23 mg/dL (9-16); Calcium 9.7 mg/dL (8.4-10.2); Carbon Dioxide 27 mmol/L (22-29); Chloride 105 mmol/L (96-108); Cholesterol 212 mg/dL; Estimated Glomerular Filt Rate > 60; Glucose Random 117 mg/dL (60-115); HDL Cholesterol 42 mg/dL; Lipase 201 U/L (8-78); Potassium 4.9 mmol/L (3.3-5.1); Sodium 140 mmol/L (135-145); Total Protein 7.6 g/dL (6.5-8.0); Triglycerides 470 mg/dL
[2023-02-27 13:13] LABS: Creatinine Urine 33.23 mg/dL; Microalbumin Urine < 5.0 mg/L
== END 2023-02-27 08:04 | disposition home or self-care (01) ==
LOC: HO.HHCL 08:03
PROVIDERS: Visit Provider General Practice
DX: E11.8 Type 2 diabetes mellitus with unspecified complications (principal); K85.80 Other acute pancreatitis without necrosis or infection; E78.00 Pure hypercholesterolemia, unspecified
CPT/HCPCS: 36415; 80053; 80061; 82043; 83690

== ENCOUNTER 2023-03-19 16:32 | Outpatient (REF) | payer MEDICAID, SELFPAY ==
[2023-03-20 12:08] LABS: BV Int Neg Control Negative (Negative); BV Int Pos Control Positive (Positive)
[2023-03-25 06:54] LABS: HPV mRNA E6/E7 rflx Not Detected (Not Detected)
== END 2023-03-19 16:33 | disposition home or self-care (01) ==
LOC: HO.HHCLNP 16:32
PROVIDERS: Visit Provider General Practice
DX: Z12.4 Encounter for screening for malignant neoplasm of cervix (principal)
CPT/HCPCS: 87480; 87510; 87624; 87660; 88142

== ENCOUNTER 2023-09-15 09:00 | Outpatient (REF) | payer MEDICAID, SELFPAY | END 2023-09-15 09:01 | disposition home or self-care (01) | LOC: HO.LNP 09:00 | PROVIDERS: PCP Family Medicine; Referring Provider General Practice; Visit Provider Surgery | DX: M79.89 Other specified soft tissue disorders (principal) | CPT/HCPCS: 22902; 88304; 88311; 99212 ==

== ENCOUNTER 2023-09-15 09:00 | Outpatient (AMB) | payer MEDICAID, SELFPAY ==
--- NOTE | 2023-09-15 09:06 | MHC.OFFVIS ---
Intake Vital Signs 09/15/23 09:09 Height 4 ft 10 in Weight 115 lb BMI 24.0 BP 129/79 Blood Pressure Location Rt brachial Position Sitting Pulse 82 Intake Visit Reasons: Abd wall subcutaneous nodule Intake Note: Patient referred by Dr. Quinones for Abd wall subcutaneous nodule. Byron present for 2 yrs. Patient previously evaluated by Dr. Brown . Patient c/o: painful with BM pressure. Artificial Plastic Eye Maker Required: No Accompanied by: Spouse Allergies No Known Allergies Allergy (Verified 09/15/23 09:07) Medication List - Last Reconciled 09/15/23 by Dean Carvalho MD albuterol sulfate 90 mcg/actuation (ProAir HFA) 2 puffs PO Q4H PRN alcohol swabs 1 pad topical QIDACHS blood sugar diagnostic (FreeStyle Lite Strips) Test four times a day or as directed. blood-glucose meter (FreeStyle Lite Meter kit) As Directed fluticasone propionate 110 mcg/actuation (Flovent HFA) 1 puff inhalation BID gemfibrozil 600 mg PO BIDAC 30 days ibuprofen 600 mg PO Q6-8H PRN insulin glargine (Lantus Solostar U-100 Insulin) 5 units (0.05 mL) subcut DAILY insulin lispro (Humalog KwikPen (U-100) Insulin) 1 sliding scale dose subcut QIDACHS MDD 30 lancets (FreeStyle Lancets) Test four times a day or as directed. levetiracetam 500 mg PO BID 30 days metformin 1,000 mg (2 x 500 mg) PO BID 30 days multivitamin (One Daily Multivitamin tablet) 1 tab PO DAILY pen needle, diabetic Use four times a day or as directed. sertraline 1 tab PO DAILY HPI HPI Comments History of Present Illness Details Patient presents with a symptomatic soft tissue mass involving her right lower quadrant abdominal wall. For reasons that are unclear to me, she was seen by Dr. Carvalho and this was never really formally addressed. The meantime, the patient states it is increasing in size, becoming more symptomatic. She wished to have it removed. Patient presents here with a significant other. Chart was reviewed and patient evaluated. [facility] Medical History Epilepsy Gastroparesis PAD (peripheral artery disease) Anxiety Seizures Diabetes Hypercholesteremia Hypertension Surgical History H/O skin graft Social History Household Members: Spouse Housing: House Do you presently have visiting nurse or other home services: No Alcohol intake: never Comment: telesitter initiated post fall Patient Tobacco Use Status: Never used Tobacco Cigarettes Per Day: 2 Years Smoked: 5 years service: No Physical Exam Vital Signs: Last Vital Signs Pulse 82 09/15/23 09:09 BP 129/79 09/15/23 09:09 BMI result Body Mass Index 24.0 GI Other: Proximally 3 x 2 cm soft tissue mass involving the anterior abdominal wall right lower quadrant. Abdomen is otherwise benign Office Procedures Excision Details: Risks, benefits, alternatives of excision of abdominal wall soft tissue mass reviewed the patient included but not limited to bleeding, infection, recurrence, numbness, pain, scarring the patient wished to proceed. All questions answered. Consent site. After appropriate positioning, patient underwent 1% lidocaine and Betadine prep and a transverse incision was made over the soft tissue mass and carried down through skin, subcutaneous tissue, uneventful enucleation and specimen sent to pathology. Wounds irrigated, secured hemostasis, and closed using running subcuticular 3-0 Vicryl suture followed by Steri-Strips and sterile dressings. Patient tolerated procedure well. 72318-rerru/arms/legs 2.1-3cm Procedure code (CPT) selection complete Office Meds lidocaine 1 %-epinephrine 1:100,000 injection solution Performing Provider: Dean Carvalho MD Performing Location: [facility] Administered by: Dean Carvalho MD on 09/15/23 09:38 Dose Route Admin Location Dispensed Lot Number Expiration Date [facility] Supervisor Soldering 15 mL Infiltration 15 mL Assessment & Plan Assessment & Plan (1) Mass of soft tissue: Code(s): M79.89 - Other specified soft tissue disorders Plan: Patient has been given local instructions, including avoiding strenuous activities, may shower in 2 days, ice to the wound, Tylenol or Motrin analgesia and will see me as directed or p.r.n. Orders: Orders AMB Excision Today M79.89 - Other specified soft tissue disorders Coding Level of Care Code New Pt Level 5 (97885) Diagnoses Mass of soft tissue M79.89 CPT Codes Trunk/Arms/Legs - CPT: 19906-oumpt/arms/legs 2.1-3cm ([id number])
[2023-09-15 09:09] VITALS: BP 129/79; PULSE 82; BMI 24.0
== END 2023-09-15 09:36 | disposition home or self-care (01) ==
PROVIDERS: PCP Family Medicine; Referring Provider General Practice; Visit Provider Surgery
DX: M79.89 Other specified soft tissue disorders (principal); D21.4 Benign neoplasm of connective and other soft tissue of abdomen
CPT/HCPCS: 22902; 99214

== ENCOUNTER 2023-09-22 10:45 | Outpatient (AMB) | payer MEDICAID, SELFPAY ==
[2023-09-22 11:05] VITALS: BP 132/88; PULSE 78
--- NOTE | 2023-09-22 11:05 | MHC.OFFVIS ---
Intake Vital Signs 09/22/23 11:05 Weight 115 lb 15.41 oz BP 132/88 Blood Pressure Location Rt brachial Position Sitting Pulse 78 Intake Visit Reasons: S/p exc Rt lower abd Intake Note: Patient here to follow up exc Rt lower abd on 09-15-23. Reports incision healing well. Patient c/o: redness. Relief Operator Required: No Accompanied by: Spouse Allergies No Known Allergies Allergy (Verified 09/22/23 11:06) HPI HPI Comments History of Present Illness Details Patient presents for follow-up. She is here with her significant other. She has no wound issues or complaints. Pathology is benign [facility] Medical History Epilepsy Gastroparesis PAD (peripheral artery disease) Anxiety Seizures Diabetes Hypercholesteremia Hypertension Surgical History H/O skin graft Social History Household Members: Spouse Housing: House Do you presently have visiting nurse or other home services: No Alcohol intake: never Comment: telesitter initiated post fall Patient Tobacco Use Status: Never used Tobacco Cigarettes Per Day: 2 Years Smoked: 5 years service: No Physical Exam Vital Signs: Last Vital Signs Pulse 78 09/22/23 11:05 BP 132/88 09/22/23 11:05 GI Other: Wound clean dry and intact healing very well. Assessment & Plan Assessment & Plan (1) Status post excision of lipoma: Code(s): Z98.890 - Other specified postprocedural states; Z86.018 - Personal history of other benign neoplasm Plan Patient has been given local instructions, and will follow-up p.r.n.. All questions answered. Coding Level of Care Code Global (40793) Diagnoses Status post excision of lipoma Z98.890; Z86.018
== END 2023-09-22 11:26 | disposition home or self-care (01) ==
PROVIDERS: PCP Family Medicine; Visit Provider Surgery
DX: Z98.890 Other specified postprocedural states (principal); Z86.018 Personal history of other benign neoplasm
CPT/HCPCS: 99024

== ENCOUNTER → 2023-09-22 10:45 | Outpatient (BNVA) | payer MEDICAID, SELFPAY | PROVIDERS: PCP Family Medicine; Visit Provider Surgery | DX: Z98.890 Other specified postprocedural states (principal); Z86.018 Personal history of other benign neoplasm | CPT/HCPCS: 99212 ==

== ENCOUNTER 2023-11-11 09:04 | Outpatient (REF) | payer MEDICAID, SELFPAY ==
[2023-11-11 11:46] LABS: MANUAL DIFF FLAG NO
[2023-11-11 11:57] LABS: Basophils Percent Auto 0.3 % (0-2); Eosinophils Absolute Auto 0.1 X10*3/uL (0.0-0.4); Eosinophils Percent Auto 1.4 % (0-4); Hematocrit 35.8 % (37.0-47.0); Hemoglobin 12.1 g/dl (12.0-16.0); Imm Gran Abs Auto 0.02 X10*3/uL (0.00-0.03); Imm Gran Pct Auto 0.2 % (0.0-0.4); Lymphocytes Absolute Auto 3.2 X10*3/uL (1.2-4.9); Lymphocytes Percent Auto 33.2 % (20-40); Mean Corpuscular HGB Conc 33.8 g/dl (31.0-35.0); Mean Corpuscular Hemoglobin 31.2 pg (27.0-33.0); Mean Corpuscular Volume 92.3 fL (80.0-98.0); Mean Platelet Volume 11.3 fL (9.4-12.3); Monocytes Absolute Auto 0.7 X10*3/uL (0.1-1.2); Monocytes Percent Auto 6.7 % (2-11); Neutrophils Absolute Auto 5.6 x10*3/uL (2.0-8.3); Neutrophils Percent Auto 58.2 % (45-73); Platelet Count 359 X10*3/uL (160-400); Red Blood Count 3.88 X10*6/uL (4.20-5.50); Red Cell Distribution Width 13.7 % (11.0-16.0); White Blood Count 9.7 X10*3/uL (4.8-10.8)
[2023-11-11 12:38] LABS: Alanine Aminotransferase 10 U/L (0-31); Albumin Level 4.2 g/dL (3.5-5.0); Alkaline Phosphatase 61 U/L (39-117); Anion Gap 14 (12-20); Aspartate Amino Transferase 9 U/L (5-31); Bilirubin Total 0.1 mg/dL (0.0-1.0); Blood Urea Nitrogen 27 mg/dL (9-16); Calcium 9.6 mg/dL (8.4-10.2); Carbon Dioxide 24 mmol/L (22-29); Chloride 108 mmol/L (96-108); Estimated Glomerular Filt Rate > 60; Glucose Random 105 mg/dL (60-115); Potassium 4.4 mmol/L (3.3-5.1); Sodium 142 mmol/L (135-145); Total Protein 7.6 g/dL (6.5-8.0)
== END 2023-11-11 09:05 | disposition home or self-care (01) ==
LOC: HO.HHCL 09:04
PROVIDERS: Visit Provider Pediatrics
DX: R56.9 Unspecified convulsions (principal)
CPT/HCPCS: 36415; 80053; 80185; 85025

== ENCOUNTER 2024-01-16 09:45 | Outpatient (REF) | payer MEDICAID, SELFPAY ==
--- NOTE | ~2024-01-16 | XR_ITS ---
EXAMINATION: XR KNEE, BILATERAL CLINICAL INFORMATION: Recent fall with bilateral knee pain COMPARISON: Radiographs 05/07/2018 TECHNIQUE: 3 views of each knee FINDINGS: No fracture or malalignment. No joint effusion. No joint space narrowing of either knee. Left distal thigh vascular stent noted. XR/XR knee RT 3V IMPRESSION: No fracture or malalignment of either knee.
--- NOTE | ~2024-01-16 | XR_ITS ---
EXAMINATION: XR KNEE, BILATERAL CLINICAL INFORMATION: Recent fall with bilateral knee pain COMPARISON: Radiographs 05/07/2018 TECHNIQUE: 3 views of each knee FINDINGS: No fracture or malalignment. No joint effusion. No joint space narrowing of either knee. Left distal thigh vascular stent noted. XR/XR knee LT 3V IMPRESSION: No fracture or malalignment of either knee.
--- NOTE | ~2024-01-16 | XR_ITS ---
EXAMINATION: XR LUMBOSACRAL SPINE CLINICAL INFORMATION: Persistent low back pain COMPARISON: CT abdomen/pelvis 01/16/2023 TECHNIQUE: AP and lateral views of the lumbosacral spine. XR/XR lumbar spine 2-3V FINDINGS/IMPRESSION: Transitional lumbosacral anatomy with sacralization of L5, which demonstrates pseudoarticulation with both sacral macie. There are 4 nonrib-bearing lumbar vertebral bodies. Facet hypertrophy at L4-L5 and L5-S1. Grade 1 anterolisthesis of L4 and L5 resulting in mild bilateral neural foraminal stenosis. Soft tissue structures are within normal limits.
== END 2024-01-16 09:46 | disposition home or self-care (01) ==
LOC: HO.HHCX 09:45
PROVIDERS: Visit Provider General Practice
DX: Z91.81 History of falling (principal)
CPT/HCPCS: 36415; 72100; 73562; 80185; 86803; 87389

== ENCOUNTER 2024-01-16 10:23 | Outpatient (REF) | payer MEDICAID, SELFPAY ==
[2024-01-16 11:54] LABS: Phenytoin Dilantin 7.2 ug/mL (10.0-20.0)
[2024-01-16 12:14] LABS: HIV AB/AG Nonreactive (Nonreactive); HIV Num 1 0.05 S/CO (0.00-0.99); ~Hepatitis C Antibody Nonreactive (Nonreactive)
== END 2024-01-16 10:24 | disposition home or self-care (01) ==
LOC: HO.HHCL 10:23
PROVIDERS: Visit Provider General Practice
DX: R56.9 Unspecified convulsions (principal); Z11.3 Encounter for screening for infections with a predominantly sexual mode of transmission
CPT/HCPCS: 36415; 80185; 86803; 87389

== ENCOUNTER 2024-03-10 15:29 | Outpatient (REF) | payer MEDICAID, SELFPAY | END 2024-03-10 15:30 | disposition home or self-care (01) | LOC: HO.MAMMO 15:29 | PROVIDERS: PCP General Practice; Visit Provider General Practice | DX: Z13.89 Encounter for screening for other disorder (principal) ==

== ENCOUNTER 2024-09-20 14:06 | Outpatient (REF) | payer MEDICAID, SELFPAY ==
[2024-09-20 15:07] LABS: Phenytoin Dilantin 20.5 ug/mL (10.0-20.0)
--- OUTSIDE RECORDS SUMMARY | 2024-09-20 16:04 | XMS_ITS | Encounter Summary ---
Author Organization [employer] Address [address] [place] [address] [address] [place] [address] Care Team Providers Care Baseboard Heating Installer Name Role Phone Magaly Quinones MD Primary Care Provider [phone] Reason for Referral * Consultation (Routine) - Authorized Specialty Diagnoses / Procedures Referred By Contac t Referred To Contact Audiology Diagnoses Hearing loss, unspecified hearing loss type, unspecified laterality Magaly Quinones MD [address] [place] [address] Phone: tel: fax: [facility] [address] [place], [place] Phone: tel: fax: Referral ID Status Reason Start Date Expiration Date Visits Requested Visits Authorized [id number] Authorized Specialty Services Required 09/09/2024 09/09/2025 6 6 Reason for Visit * Reason Comments Hearing Problem Encounter Details Date Type Department Care Team (Late st Contact Info) Description 09/06/2024 2:00 PM EST Telemedicine [facility] [address] [place], [place] [phone] Magaly Quinones MD [address], [place] [phone] Nausea and vomiting, unspecified vomiting type (Primary Dx); Moderate persistent asthma without complication; Seizures (CMS/HCC); Type 2 diabetes mellitus without complication, with long-term current use of insulin (CMS/[facility]); Hearing loss, unspecified hearing loss type, unspecified laterality Social History Tobacco Use Types Packs/Day Years Used Date Smoking Tobacco: Former Cigarettes Passive Smoke Exposure: Never Smokeless Tobacco: Never Alcohol Use Standard Drinks/Week Comments Never 0 (1 standard drink = 0.6 oz pur e alcohol) Depression Answer Date Recorded Patient Health Questionnaire-9 Score 0 03/19/2023 Housing Stability Answer Date Recorded What is your housing situation today? I have isis marley 06/01/[address] you li ve. Do you have problems with any of the following? None of the above 06/01/2024 Food Insecurity Answer Date Recorded Within the past 12 months, y ou worried that your food would run out before you got money to buy more: Never True 06/01/2024 Within the past 12 months,th e food you bought just didn't last and you didn't have enough money to get more: Never True Transportation Answer Date Recorded In the past 12 months, has l ack of transportation kept you from medical appts, meetings, work or from getting things needed for daily living? Yes, it has kept me from non-medical meetings, work, or getting things that I need 06/01/2024 Utilities Answer Date Recorded In the past 12 months, has t he electric, gas, oil or water company threatened to shut off services in your home? No 06/01/2024 Depression Answer Date Recorded Patient Health Questionnaire-2 Score 0 03/19/2023 Internet Access Answer Date Recorded Internet Access Q1 Yes 06/01/2024 Internet Access Q2 Not on file 06/01/2024 Comments Unknown Sex and Gender Information Value Date Recorded Sex Assigned at Female 05/13/2022 10:15 AM EDT Legal Sex Female 10:15 AM EDT Gender Identity Female 05/13/2022 10:15 AM EDT Sexual Orientation Straight 05/13/2022 10 :15 AM EDT documented as of this encounter Progress Notes * Magaly Quinones MD - 09/06/2024 2:00 PM EST SUBJECTIVE: Theresa Beltre is a 54 y.o. year old female who presents for chronic disease management. Denies recent ER visit, or hospitalization. Acute concerns: Appointment converted to telemedicine, due to patient feeling weak and tired. She has been vomitingand with nausea for the past 24 hours. Starting to tolerate liquids again. She is having trouble with her hearing and would like an audiology referral. Interim Updates: RLQ Lipoma with calcifications Removed 09/15/23 Pancreatitis Resolved, no further pain Lipase 1000 --> 270 from early to mid January 2023 Lipase 201 02/25/23 Hypertriglyceridemia Atorvastatin discontinued in the hospital Could not tolerate Gemfibrozil Taking Fenofibrate 145mg daily TG 470 03/2023 Seizures: had them since age 16, had surgery to remove a mass in the posterior fossa in [place], she moved to [place] in 1994 prescribed Dilantin 200mg BID Neurologist- Dr Tee She reports seizure activity in the past months, sometimes [address] Tee increased her phenytoin dose after a slightly subtherapeutic level on 11/11/23. Level was 9, therapeutic range 10-20. 7/11/04 critical low dilantin, seeing Dr Tee, at 11/03/23 visit he rx'ed Dilantin 100mg qam and 300mg qpm Anxiety/insomina: mood is better Hard to fall asleep, but not staying asleep once she actually is asleep watches TV prior to bedtime Taking Gabapentin 300mg nightly DM2: A1C 5.8 reports taking Metformin 1000mg BID Lantus 105units nightly, Humalog sliding scale OLENA 01/[address] Salgado, no ocular DM involvement HTN: not checking at home Amlodipine 5mg daily Health maintenance Mammo- last 07/2019, Birads 1, OVERDUE, order placed Pap- 01/2019 NIL and HPV neg, 03/2023 NIL and HPV neg Cologuard- with GI 03/2022 Imms- needs Tdap, Hep B Patient Active Problem List Diagnosis Asthma Hypercholesterolemia Mixed anxiety and depressive disorder Seizures (CMS/HCC) Type 2 diabetes mellitus without complication (CMS/HCC) Pain in both lower extremities Acute pancreatitis Allergic drug reaction Varicose veins of both lower extremities with pain Unsteadiness on feet At risk for falls Screening for cervical cancer Dental calculus Periodontal disease Generalized gingival recession Missing teeth, acquired Subcutaneous nodule of abdominal wall Essential hypertension Low back pain at multiple sites Past Surgical History: Procedure Laterality Date SKIN GRAFT Right forearm Family History Problem Relation Name Age of Onset Diabetes Mother Breast cancer Mother 56 Diabetes Maternal Grandmother Social History Social History Narrative Lives with AMAB partner unemployed Review of Systems Constitutional: Positive for activity change, appetite change, chills and fatigue. Negative for diaphoresis and fever. HENT: Positive for hearing loss. Gastrointestinal: Positive for nausea and vomiting. Negative for blood in stool, constipation and diarrhea. All other systems reviewed and are negative. OBJECTIVE: No exam, telehealth ASSESSMENT/PLAN Problem List Items Addressed This Visit Asthma Relevant Medications fluticasone furoate (Arnuity Ellipta) 200 MCG/ACT inhaler Seizures (CMS/[facility]) Type 2 diabetes mellitus without complication ([facility]) Other Visit Diagnoses Nausea and vomiting, unspecified vomiting type - Primary Relevant Medications ondansetron (Zofran) 4 MG tablet Hearing loss, unspecified hearing loss type, unspecified laterality Relevant Orders Referral to Audiology Follow Up: 4-6 months or sooner prn Allergies Allergen Reactions Levetiracetam Hives and Angioedema Current Outpatient Medications: ibuprofen 600 MG tablet, TAKE 1 TABLET BY MOUTH EVERY 6 TO 8 HOURS NEEDED FOR BACK PAIN, Disp: ,Rfl: albuterol (Ventolin HFA) 108 (90 Base) MCG/ACT inhaler, INHALE 2 PUFFS BY MOUTH EVERY 4 HOURS NEEDED, Disp: 18 g, Rfl: 11 Alcohol Swabs (Alcohol Prep) 70 % pads, USE DIRECTED FOUR TIMES DAILY, Disp: 100 each, Rfl: 11 amLODIPine (Norvasc) 5 MG tablet, TAKE 1 TABLET BY MOUTH EVERY MORNING, Disp: 90 tablet, Rfl: 3 Blood Glucose Monitoring Suppl ([place] Lite) w/Device kit, USE DIRECTED, Disp: , Rfl: cyclobenzaprine (Flexeril) 5 MG tablet, Take 1 tablet (5 mg) by mouth at bedtime. For muscle relaxer, Disp: 30 tablet, Rfl: 2 D3 Super Strength 50 MCG (2000 UT) capsule, TAKE 1 CAPSULE BY MOUTH EVERY MORNING, Disp: 90 capsule, Rfl: 3 fenofibrate (Tricor) 145 MG tablet, TAKE 1 TABLET BY MOUTH EVERY MORNING, Disp: 90 tablet, Rfl: 1 fluticasone furoate (Arnuity Ellipta) 200 MCG/ACT inhaler, Inhale 1 puff Once per day. Rinse mouth with water after use to reduce aftertaste and incidence of candidiasis. Do not swallow., Disp: 1 each, Rfl: 11 folic acid (Folvite) 1 MG tablet, Take 1,000 mcg by mouth in the morning., Disp: , Rfl: gabapentin (Neurontin) 300 MG capsule, TAKE 1 CAPSULE BY MOUTH AT BEDTIME, Disp: 30 capsule, Rfl: 11 glucose blood (FREESTYLE LITE) test strip, USE DIRECTED TO TEST BLOOD SUGAR FOUR TIMES DAILY, Disp: 100 strip, Rfl: 11 insulin glargine (Lantus SoloStar) 100 UNIT/ML pen, Inject 15 Units under the skin at bedtime., Disp: 15 mL, Rfl: 6 insulin lispro (HumaLOG) 100 UNIT/ML injection, INJECT SUBCUTANEOUSLY FOUR TIMES DAILY DIRECTED PER SLIDING SCALE UP TO 30 UNITS PER DAY. BLOOD SUGAR < 150 = 0 UNITS, 151-200 = 2 UNITS, 201-250= 4 UNITS, 251-300 = 6 UNITS, 301-350 = 8 UNITS, > 350 = 10 UNITS, Disp: 15 mL, Rfl: 2 metFORMIN (Glucophage) 1000 MG tablet, TAKE 1 TABLET BY MOUTH TWICE DAILY IN THE MORNING AND IN THEEVENING WITH MEALS, Disp: 180 tablet, Rfl: 3 Multiple Vitamin (Multivitamin) tablet, TAKE 1 TABLET BY MOUTH EVERY MORNING, Disp: 90 tablet, Rfl:3 Novofine Pen Needle 32G X 6 MM misc, USE FOUR TIMES DAILY OR DIRECTED, Disp: 100 each, Rfl: 11 ondansetron (Zofran) 4 MG tablet, Take 1 tablet (4 mg) by mouth every 8 (eight) hours if needed fornausea or vomiting for up to 7 days., Disp: 20 tablet, Rfl: 0 phenytoin ER (Dilantin) 100 MG capsule, Take 2 capsules (200 mg) by mouth 2 times daily., Disp: 120capsule, Rfl: 1 sertraline (Zoloft) 100 MG tablet, Take 1 tablet (100 mg) by mouth Once per day., Disp: 90 tablet, Rfl: 3 TRUEplus Lancets 33G misc, USE DIRECTED TO TEST BLOOD SUGAR FOUR TIMES DAILY, Disp: 100 each, Rfl: 11 Bulgarian Translation: Patient is bilingual and declines translation services documented in this encounter Plan of Treatment Upcoming Encounters Date Type Department Care Team (Late st Contact Info) Description 12/13/2024 1:00 PM EDT Office Visit [facility] [address] [place] [address] Clarita Salgado, OD [address] [place] [address] Scheduled Referrals Name Type Priority Associated Diagnoses Orde r Schedule Referral to Audiology Outpatient Referral Routine Hearing loss, unspecified hearing loss type, unspecified laterality Expected: 09/07/2024 (Approximate), Expires: 09/07/2025 documented as of this encounter Goals Goal Patient Goal Type Associated Problems Recent Progress Patient-Stated? Author Blood Pressure < 140/90 Blood Pressure 116/75(2023 3:37 PM EST) No Joel Corcoran Hemoglobin A1c < 7 Result Component 5.7( 3:46 PM EST) No Joel Corcoran documented as of this encounter Visit Diagnoses Diagnosis Nausea and vomiting, unspecified vomiting type- Primary Moderate persistent asthma without complication Seizures ([facility]) Other convulsions Type 2 diabetes mellitus without complication, with long-term current use of insulin ([facility]) Hearing loss, unspecified hearing loss type, unspecified laterality documented in this encounter Additional Health Concerns Assessment Noted Time PHQ-9 Depression Total Score: 0 03/19/20 23 11:21 AM EDT documented as of this encounter Care Teams Baseboard Heating Installer Relationship Specialty Start Date End Date Magaly Quinones MD [address] [place] [address] PCP - General Family Medicine 03/06/21 documented as of this encounter
--- OUTSIDE RECORDS SUMMARY | 2024-09-20 16:05 | XMS_ITS | Encounter Summary ---
Author Organization [employer] Address [address] [place] [address] Care Team Providers Care Rodent Control Worker Name Role Phone Magaly Quinones MD Primary Care Provider [phone] Reason for Visit * Reason Comments Med Refill Encounter Details Date Type Department Care Team ([facility] Contact Info) Description 09/17/2024 Refill [facility] [address] [place], [place] [phone] Magaly Quinones MD [address] [place], [place] [phone] Social History Tobacco Use Types Packs/Day Years [...] AM EDT documented as of this encounter Plan of Treatment Upcoming Encounters Date Type Department Care Team (Late st Contact Info) Description 12/13/2024 1:00 PM EDT Office Visit [facility] [address] [place], [place] [phone] Clarita Salgado, OD [address] [place] [address] documented as of this encounter Goals Goal Patient Goal Type Associated Problems Recent Progress Patient-Stated? Author Blood Pressure < 140/90 Blood Pressure 116/75(2023 3:37 PM EST) No Joel Corcoran Hemoglobin A1c < 7 Result Component 5.7( 3:46 PM EST) No Joel Corcoran documented as of this encounter Visit Diagnoses Not on filedocumented in this encounter Additional Health Concerns Assessment Noted Time PHQ-9 Depression Total Score: 0 03/19/20 23 11:21 AM EDT documented as of this encounter Care Teams Rodent Control Worker Relationship Specialty Start Date End Date Magaly Quinones MD [address] [place] [address] PCP - General Family Medicine 03/06/21 documented as of this encounter
--- OUTSIDE RECORDS SUMMARY | 2024-09-20 16:05 | XMS_ITS | Encounter Summary ---
Author Organization [employer] Address [address] [facility] [address] [place] [address] Care Team Providers Care Upstairs Maid Name Role Phone Magaly Quinones MD Primary Care Provider [phone] Reason for Visit * Reason Comments Med Refill Encounter Details Date Type Department Care Team ([facility] Contact Info) Description 01/22/[address] [facility] [address] [place], [place] [phone] Magaly Quinones MD [address] [place], [place] [phone] Social History Tobacco Use Types Packs/Day Years Used Date Smoking Tobacco: Former Cigarettes Passive Smoke Exposure: Never Smokeless Tobacco: Never Alcohol Use Standard Drinks/Week Comments Never 0 (1 standard drink = 0.6 oz pur e alcohol) Depression Answer Date Recorded Patient Health Questionnaire-9 Score 0 03/19/2023 Housing Stability Answer Date Recorded What is your housing situation today? I have isis marley 04/28/[address] you li ve. Do you have problems with any of the following? None of the above 04/28/2023 Food Insecurity Answer Date Recorded Within the past 12 months, y ou worried that your food would run out before you got money to buy more: Never True 04/28/2023 Within the past 12 months,th e food you bought just didn't last and you didn't have enough money to get more: Never True Transportation Answer Date Recorded In the past 12 months, has l ack of transportation kept you from medical appts, meetings, work or from getting things needed for daily living? No 04/28/2023 Utilities Answer Date Recorded In the past 12 months, has t he electric, gas, oil or water company threatened to shut off services in your home? No 04/28/2023 Depression Answer Date Recorded Patient Health Questionnaire-2 Score 0 03/19/2023 Comments Unknown Sex and Gender Information Value [...] Description 12/13/2024 1:00 PM EDT Office Visit [facility] [address] [place], [place] [phone] Damian, Clarita, OD [address] [place] [address] documented as of this encounter Goals Goal [...] documented as of this encounter Care Teams Upstairs Maid Relationship Specialty Start Date End Date Magaly Quinones MD [address] [place] [address] PCP - General Family Medicine 03/06/21 documented as of this encounter
--- OUTSIDE RECORDS SUMMARY | 2024-09-20 16:05 | XMS_ITS | Encounter Summary ---
Author Organization [employer] Address [address] [facility] [address] [place] [address] Care Team Providers Care Social Service Coordinator Name Role Phone Magaly Quinones MD Primary Care Provider [phone] Reason for Visit * Reason Comments Med Refill Encounter Details Date Type Department Care Team ([facility] Contact Info) Description 10/06/2023 Refill [facility] [address] [place], [place] [phone] Magaly Quinones MD [address] [place], [place] [phone] Social History Tobacco Use Types Packs/Day Years [...] Description 12/13/2024 1:00 PM EDT Office Visit [facility] [address] [place], [place] [phone] Damian, Clarita, OD [address] [place] [address] documented as of this encounter Goals Goal [...] documented as of this encounter Care Teams Social Service Coordinator Relationship Specialty Start Date End Date Magaly Quinones MD [address] [place] [address] PCP - General Family Medicine 03/06/21 documented as of this encounter
--- OUTSIDE RECORDS SUMMARY | 2024-09-20 16:05 | XMS_ITS | Encounter Summary ---
Author Organization [employer] Address [address] [facility] [address] [place] [address] Care Team Providers Care Radio Commentator Name Role Phone Magaly Quinones MD Primary Care Provider [phone] Reason for Visit * Reason Onset Date Comments Referral 04/03/2023 Encounter Details Date Type Department Care Team ([facility] st Contact Info) Description 04/03/2023 Telephone [facility] MEDICINE [address] [place], [place] [phone] Magaly Quinones MD [address] [place], [place] [phone] Referral Social History Tobacco Use Types Packs/Day Years Used Date Smoking Tobacco: Never Passive Smoke Exposure: Never Smokeless Tobacco: Never Alcohol Use Standard Drinks/Week Comments Never 0 (1 standard drink = 0.6 oz pur e alcohol) Depression Answer Date Recorded Patient Health Questionnaire-9 Score 0 03/19/2023 Depression Answer Date Recorded Patient Health Questionnaire-2 Score 0 03/19/2023 Comments Unknown Sex and Gender Information Value Date Recorded Sex Assigned at Female 05/13/2022 10:15 AM EDT Legal Sex Female 10:15 AM EDT Gender Identity Female 05/13/2022 10:15 AM EDT Sexual Orientation Straight 05/13/2022 10 :15 AM EDT documented as of this encounter Miscellaneous Notes * Telephone Encounter - Shefali Ruano - 04/03/2023 10:56 AM EDT LUIGI Villarreal from [facility] endo calling to inform received pt referral but they are missing additional information as of office notes , labs and med list . Please call to clarify at phone # [phone] fax # [phone] documented in this encounter Plan of Treatment Upcoming Encounters Date Type Department Care Team (Late st Contact Info) Description 12/13/2024 1:00 PM EDT Office Visit [facility] OPTOMETRY [address] [place] [address] Clarita Salgado, OD [address] [place] [address] documented as of this encounter Goals Goal [...] documented as of this encounter Care Teams Radio Commentator Relationship Specialty Start Date End Date Magaly Quinones MD [address] [place] [address] PCP - General Family Medicine 03/06/21 documented as of this encounter
--- OUTSIDE RECORDS SUMMARY | 2024-09-20 16:05 | XMS_ITS | Encounter Summary ---
Author Organization [employer] Address [address] [facility] [address] [place] [address] Care Team Providers Care Learning And Development Intern Name Role Phone Magaly Quinones MD Primary Care Provider [phone] Reason for Referral * Consultation (Routine) - Closed Specialty Diagnoses / Procedures Referred By Contyuli blanco Referred To Contact Physical Therapy Diagnoses Unsteadiness on feet Low back pain at multiple sites Magaly Quionnes MD [address] [place] [address] Phone: tel: fax: [facility] Physical Therapy [address] [place] [address] Phone: tel: fax: Referral ID Status Reason Start Date Expiration Date V isits Requested Visits Authorized [id number] Closed Specialty Services Required 03/02/2024 03/02/2025 20 20 Encounter Details Date Type Department Care Team (Late st Contact Info) Description 02/04/2024 Orders Only [facility] MEDICINE [address] [place], [place] [phone] Magaly Quinones MD [address] [place], [place] [phone] Low back pain at multiple sites (Primary Dx); Unsteadiness on feet Social History Tobacco Use Types Packs/Day Years [...] Description 12/13/2024 1:00 PM EDT Office Visit [facility] OPTOMETRY [address] [place] [address] Damian, Clarita, OD [address] [place] [address] Scheduled Referrals Name Type Priority Associated Diagnoses Orde r Schedule Referral to Physical Therapy Outpatient Referral Routine Unsteadiness on feet Low back pain at multiple sites Expected: 02/04/2024 (Approximate), Expires: 02/03/2025 documented as of this encounter Goals Goal Patient Goal Type Associated Problems Recent Progress Patient-Stated? Author Blood Pressure < 140/90 Blood Pressure 116/75(2023 3:37 PM EST) No Joel Corcoran Hemoglobin A1c < 7 Result Component 5.7( 3:46 PM EST) No Joel Corcoran documented as of this encounter Visit Diagnoses Diagnosis Low back pain at multiple sites- Primary Unsteadiness on feet documented in this encounter Additional Health Concerns Assessment Noted Time PHQ-9 Depression Total Score: 0 03/19/20 23 11:21 AM EDT documented as of this encounter Care Teams Learning And Development Intern Relationship Specialty Start Date End Date Magaly Quinones MD [address] [place] [id number] PCP - General Family Medicine 03/06/21 documented as of this encounter
--- OUTSIDE RECORDS SUMMARY | 2024-09-20 16:05 | XMS_ITS | Encounter Summary ---
Author Organization [employer] Address [address] [facility] [address] [place] [address] Care Team Providers Care Canal Boat Operator Name Role Phone Magaly Quinones MD Primary Care Provider [phone] Encounter Details Date Type Department Care Team (Late Contact Info) Description 03/07/2023 Orders Only [facility] MEDICINE [address] [place] [address] Magaly Quinones MD [address] [place] [address] Social History Tobacco Use Types Packs/Day Years Used Date Smoking Tobacco: Never Passive Smoke Exposure: Never Smokeless Tobacco: Never Alcohol Use Standard Drinks/Week Comments Never 0 (1 standard drink = 0.6 oz pur e alcohol) Comments Unknown Sex and Gender Information Value Date Recorded Sex Assigned at Female 05/13/2022 10:15 AM EDT Legal Sex Female 10:15 AM EDT Gender Identity Female 05/13/2022 10:15 AM EDT Sexual Orientation Straight 05/13/2022 10 :15 AM EDT documented as of this encounter Plan of Treatment Upcoming Encounters Date Type Department Care Team (Late Contact Info) Description 12/13/2024 1:00 PM EDT Office Visit [facility] OPTOMETRY [address] [place] [address] Clarita Salgado OD [address] [place] [address] documented as of this encounter Visit Diagnoses Not on filedocumented in this encounter Care Teams Canal Boat Operator Relationship Specialty Start Date End Date Magaly Quinones MD [address] [place] [address] PCP - General Family Medicine 03/06/21 documented as of this encounter
--- OUTSIDE RECORDS SUMMARY | 2024-09-20 16:05 | XMS_ITS | Clinical Summary ---
Author Organization [email or web address] Address [address] [place] [address] [address] [place] [address] Care Team Providers Care Marine Firer Name Role Phone Magaly Quinones MD Primary Care Provider [phone] Allergies Active Allergy Reactions Criticality Noted Date Comments Levetiracetam Hives,Angioedema Low 01/24/2023 Medications Blood Glucose Monitoring Suppl (Voxeet Lite) w/Device kit USE DIRECTED 023 Active phenytoin ER (Dilantin) 100 MG capsuleIndicatio ns:Seizure (CMS/HCC) Take 2 capsules (200 mg) by mouth 2 times daily. 120 capsule 1 023 Active folic acid (Folvite) 1 MG tablet Take 1,000 mcg by mouth in the morning. 023 Active insulin lispro (HumaLOG) 100 UNIT/ML injectionIndicat ions:Type 2 diabetes mellitus without complications ([facility]) INJECT SUBCUTANEOUSLY FOUR TIMES DAILY DIRECTED PER SLIDING SCALE UP TO 30 UNITS PER DAY. BLOOD SUGAR < 150 = 0 UNITS, 151-200 = 2 UNITS, 201-250 = 4 UNITS, 251-300 = 6 UNITS, 301-350 = 8 UNITS, > 350 = 10 UNITS 15 mL 2 024 Active Multiple Vitamin (Multivitamin) tabletIndication s:Encounter for general adult medical examination without abnormal findings TAKE 1 TABLET BY MOUTH EVERY MORNING 90 tablet 3 024 Active insulin glargine (Lantus SoloStar) 100 UNIT/ML penIndications:T ype 2 diabetes mellitus without complication, with long-term current use of insulin (CMS/HCC) Inject 15 Units under the skin at bedtime. 15 mL 6 Active glucose blood (FREESTYLE LITE) test strip USE DIRECTED TO TEST BLOOD SUGAR FOUR TIMES DAILY 100 strip Active gabapentin (Neurontin) 300 MG capsule TAKE 1 CAPSULE BY MOUTH AT BEDTIME 30 capsule Active TRUEplus Lancets 33G misc USE DIRECTED TO TEST BLOOD SUGAR FOUR TIMES DAILY 100 each Active Novofine Pen Needle 32G X 6 MM misc USE FOUR TIMES DAILY OR DIRECTED 100 each Active metFORMIN (Glucophage) 1000 MG tabletIndication s:Type 2 diabetes mellitus without complication, with long-term current use of insulin (CMS/HCC) TAKE 1 TABLET BY MOUTH TWICE DAILY IN THE MORNING AND IN THE EVENING WITH MEALS 180 tablet 3 Active albuterol (Ventolin HFA) 108 (90 Base) MCG/ACT inhaler INHALE 2 PUFFS BY MOUTH EVERY 4 HOURS NEEDED 18 g 11 Active fenofibrate (Tricor) 145 MG tablet TAKE 1 TABLET BY MOUTH EVERY MORNING 90 tablet 1 Active sertraline (Zoloft) 100 MG tablet Take 1 tablet (100 mg) by mouth Once per day. 90 tablet 3 024 2024 Active D3 Super Strength 50 MCG (2000 UT) capsule TAKE 1 CAPSULE BY MOUTH EVERY MORNING 90 capsule 3 Active Alcohol Swabs (Alcohol Prep) 70 % pads USE DIRECTED FOUR TIMES DAILY 100 each Active amLODIPine (Norvasc) 5 MG tablet TAKE 1 TABLET BY MOUTH EVERY MORNING 90 tablet 3 Active fluticasone furoate (Arnuity Ellipta) 200 MCG/ACT inhalerIndicatio ns:Moderate persistent asthma without complication Inhale 1 puff Once per day. Rinse mouth with water after use to reduce aftertaste and incidence of candidiasis. Do not swallow. 1 each 025 2025 Active cyclobenzaprine (Flexeril) 5 MG tablet TAKE 1 TABLET BY MOUTH AT BEDTIME DIRECTED 30 tablet 2 Active ibuprofen 600 MG tabletIndication s:Other chronic pain TAKE 1 TABLET BY MOUTH EVERY 6 TO 8 HOURS NEEDED FOR BACK PAIN 90 tablet 2 025 Active cyclobenzaprine (Flexeril) 5 MG tablet Take 1 tablet (5 mg) by mouth at bedtime. For muscle relaxer 30 tablet 2 024 2024 Discontinued fluticasone furoate (Arnuity Ellipta) 100 MCG/ACT inhaler INHALE 1 PUFF BY MOUTH EVERY DAY AT THE SAME TIME RINSE MOUTH AFTER USING. 30 each 6 025 2024 Discontinued ibuprofen 600 MG tablet TAKE 1 TABLET BY MOUTH EVERY 6 TO 8 HOURS NEEDED FOR BACK PAIN 025 2024 Discontinued ondansetron (Zofran) 4 MG tabletIndication s:Nausea and vomiting, unspecified vomiting type Take 1 tablet (4 mg) by mouth every 8 (eight) hours if needed for nausea or vomiting for up to 7 days. 20 tablet 025 2024 Active Problems Problem Noted Date Diagnosed Date Low back pain at multiple sites 02/04/2024 Subcutaneous nodule of abdominal wall 06/27/2023 Assessment & Plan (06/27/2023 1:00 PM EST): Saw Dr Brown at [facility] Surgery 01/2022 who recommended cardiology consultant eval and control of DM2 before being re-evaluated by surgery. Both of these things have been done. She has ongoing pain and pressure at the site of the nodules, will request re-evaluation by surgery. Essential hypertension 06/27/2023 Assessment & Plan (06/14/2024 4:46 PM EST): BP at goal <140/90 Pt will continue on amlodipine 5 mg daily Assessment & Plan (01/15/2024 7:13 AM EDT): At goal <140/90 Continue Amlodipine 5mg daily Will add ACEi/ARB as next line agent Dental calculus 06/10/2023 Periodontal disease 06/10/2023 Generalized gingival recession 06/10/2023 Missing teeth, acquired 06/10/2023 Screening for cervical cancer 03/19/2023 Assessment & Plan (03/19/2023 11:55 AM EDT): Will see to help with Cologuard testing She will schedule mammogram Will re-refer to general surgery about right lower quadrant abdominal mass after pap/BV testing results Varicose veins of both lower extremities with pa in 02/28/2023 Assessment & Plan (02/28/2023 9:08 AM EDT): Referral to vascular surgery Unsteadiness on feet 02/28/2023 At risk for falls 02/28/2023 Assessment & Plan (02/28/2023 3:12 PM EDT): Patient? s clinical findings support the need for a walker given the patient has a mobility limitation that significantly impairs her ability to participate in one or more mobility-related activities of daily living (MRADL). Patient will have an intermittent need for weight bearing and will benefit of a two-wheel walker Medical condition: Weight: Wt Readings from Last 2 Encounters: 02/26/23 127 lb 6 oz (57.8 kg) 02/03/23 116 lb (52.6 kg) Patient needs a walker to perform MRADL? s and the functional mobility deficit cannot be sufficiently resolved by use of a cane or crutches, given she will need assistance of both upper extremities for balance. The patient is willing to use a walker and the functional mobility deficit can be improved with the use of this device. Acute pancreatitis 01/24/2023 Assessment & Plan (01/27/2023 5:12 PM EDT): Seems to have been resolved, it was apparently secondary to Hyper TG Start fenofibrate 48md/d and will hold Lipitor for now, it can be restarted if she tolerates fibrates. She will fu with her PCP in 1m. Check Labs Counseled regarding low fat diet, avoid alcohol and FU with PCP in 1 month Allergic drug reaction 01/24/2023 Assessment & Plan (01/27/2023 5:12 PM EDT): She is allergic to Keppra, I entered it in the chart. DC Keppra and start DIlantin for seizures Take benadryl PRN today, reconsult PRN with symptoms of anaphylaxis/SOB Pain in both lower extremities 10/21/2022 Assessment & Plan (06/14/2024 4:47 PM EST): Will start patient on flexeril 5 mg nightly for musculoskeletal pain and tightness r/t her seizures Assessment & Plan (10/21/2022 4:33 AM EDT): Progressive, for past several months intermittently difficult to walk/unable to walk Will make visit in person Diff dx: PAD, neuropathy, MSK injury Type 2 diabetes mellitus without complication Assessment & Plan (06/14/2024 4:52 PM EST): A1c at goal today <7.0 Assessment & Plan (01/24/2023 12:56 PM EDT): Uncontrolled. Will increase Lantus by 3 units per week gradually up to 15 units per day and FU with PCP in 1 month. Continue Humalog sliding scale per HDF Continue Metformin 1000mg BID and FU with PCP in 4 weeks. Will refer to dietitian and to endocrinology, pt is aware there is a waiting list, she will fu with her PCP until then. Hypercholesterolemia 08/11/2017 Assessment & Plan (06/14/2024 4:45 PM EST): Pt will continue on fenofibrate Will obtain lipid panel today Assessment & Plan (01/15/2024 7:14 AM EDT): Recheck lipid panel today Prior episode of pancreatitis thought to be due to elevated triglycerides Will evaluate need for additional agents based on current results Assessment & Plan (10/21/2022 4:33 AM EDT): Continue statin Lipitor 40mg nightly Check lipids annually Mixed anxiety and depressive disorder 02/14/2012 Assessment & Plan (06/14/2024 4:49 PM EST): Will increase dose of Zoloft from 50 mg to 100 mg for anxiety Asthma 02/13/2009 Seizures 02/14/1996 Assessment & Plan (06/14/2024 4:44 PM EST): Seizure activity has increased to at least 1 seizure nightly Patient will continue on Dilantin 200 BID and f/u with Dr. Tee Assessment & Plan (01/15/2024 7:12 AM EDT): Will check phenytoin level today Call Dr Tee's office to obtain notes May need to be seen again to adjust dose based on phenytoin level and reported seizures in the past months Seizure precautions reviewed, no driving, no high level activities, no swimming Assessment & Plan (01/24/2023 12:55 PM EDT): DC Caroline due to allergy start dilantin loading dose 200mg q6 hrs x 1 day and continue 200mg BID Check dilantin levels in 3 weeks Go to ED if she developes intolerance to dilantin or seizures refer to neurology Fu with PCP in 1 month Assessment & Plan (10/21/2022 4:35 AM EDT): Continue neurology appointments Reviewed importance of not missing anti-epilepsy drugs and speaking with her neurologist about side effects or concerns Resolved Problems Problem Noted Date Diagnosed Date Resolved Date 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 02/28/2023 09/07/2024 Assessment & Plan (02/28/2023 3:12 PM EDT): Peripheral neuropathy secondary to DM2 Restart Gabapentin 300mg at nighttime Diabetes [facility] 02/26/2023 09/07/2024 Assessment & Plan (01/15/2024 7:13 AM EDT): Current A1c: 5.8 BMP: today Microalbumin: today Foot Exam: Complete at follow up Eye Exam: Discuss at follow up Lipid panel: today ASCVD: The 10-year ASCVD risk score (Nati MASON, et al., 2019) is: 4.9% Values used to calculate the score: Age: 53 years Sex: Female Is Non- : No Diabetic: Yes Tobacco smoker: No Systolic Blood Pressure: 116 mmHg Is BP treated: Yes HDL Cholesterol: 42 mg/dL Total Cholesterol: 212 mg/dL Statin: Yes ASA: Yes JAMARCUS/ARB: No Encouraged regular aerobic exercise for improved glycemic control Encouraged daily foot checks Encouraged lean protein snacks and to avoid foods high in sugar and simple carbohydrates Treatment Goals: A1c goal: <7% FBG goal: <130 2 hour post prandial goal: <180 Encounters Date Type Department Care Team Description 09/18/2024 Refill [facility] [address] [place] [address] Magaly Quinones MD Other chronic pain 09/17/2024 Refill [facility] [address] [place] [address] Magaly Quinones MD 09/06/2024 2:00 PM EST Telemedicine [facility] [address] [place] [address] Magaly Quinones MD Nausea and vomiting, unspecified vomiting type (Primary Dx); Moderate persistent asthma without complication; Seizures ([facility]); Type 2 diabetes mellitus without complication, with long-term current use of insulin ([facility]); Hearing loss, unspecified hearing loss type, unspecified laterality 09/06/2024 Travel 08/04/2024 Refill [facility] [address] [place] [address] Magaly Quinones MD 07/27/2024 Refill [facility] [address] [place] [address] Magaly Quinones MD 07/20/2024 Telephone [facility] [address] [place] [phone] Magaly Quinones MD 07/05/2024 Refill [facility] [address] [place], [place] [phone] Magaly Quinones MD 06/29/2024 Refill [facility] [address] [place] [address] Magaly Quinones MD from Last 3 Months Immunizations Name Administration Dates Next Due HepB-CpG 06/02/2024 Influenza injectable quadriv alent IIV4 with preservative 05/06/2018 Influenza injectable quadrivalent preservative f ree 06/27/2023,08/15/2021 Influenza, IIV3, injectable 09/08/2009 Influenza, seasonal, injectable, preservative fr ee 05/06/2024 Pfizer Covid-19 Vaccine 12+ 05/06/2024, Pneumococcal Conjugate PCV 20 02/26/2023 Pneumococcal Polysaccharide PPSV23 08/15/2021 Tdap 06/02/2024,09/08/2009 Zoster, Recombinant 04/28/2023,02/26/2023 Family History Medical History Relation Name Comments Diabetes Maternal Grandmother Breast cancer Mother Diabetes Mother Relation Name Status Comments Maternal Grandmother Mother Social History Tobacco Use Types Packs/Day Years Used Date Smoking Tobacco: Former Cigarettes Passive Smoke Exposure: Never Smokeless Tobacco: Never Tobacco Cessation:Counseling Given: Not Answered Alcohol Use Standard Drinks/Week Comments Never 0 [...] Orientation Straight 05/13/2022 10 :15 AM EDT Last Filed Vital Signs Vital Sign Reading Time Taken Comments Blood Pressure 116/75 06/14/2024 3:37 PM EST Pulse 90 06/14/2024 3:37 PM EST Temperature 36.6 ??C (97.9 ??F) 06/14/2024 3:37 PM ES T Respiratory Rate 18 06/14/2024 3:37 PM EST Oxygen Saturation 99% 06/14/2024 3:37 PM EST Inhaled Oxygen Concentration - - Weight 47.6 kg (105 lb) 06/14/2024 3:37 PM EST Height 147.3 cm (4' 10 ) 06/14/2024 3:37 PM EST Body Mass Index 21.95 06/14/2024 3:37 PM EST Plan of Treatment Upcoming Encounters Date Type Department Care Team (Late st Contact Info) Description 12/13/2024 1:00 PM EDT Office Visit [facility] [address] [place] [address] Damian, Clarita, OD [address] [place] [address] Health Maintenance Due Date Last Done Comments CT Colonography 1970 Colonoscopy 1970 Colorectal Cancer Screening 1970 FIT DNA/Cologuard 1970 FIT 1970 FOBT 1970 Sigmoidoscopy 1970 Diabetes: Foot Exam 1980 Alcohol/Substance Use Screening 1982 Mammogram 01/18/2021 01/18/2019, 05/08/2018 Dental Oral Exam 09/08/2023 03/07/2023, , 07/15/2012 Dental Prophylaxis 12/10/2023 06/10/2023 Diabetes: Urine Protein Screening 02/28/2024 02/27/2023, 08/15/2021 Lipid Panel 02/28/2024 02/27/2023, 02/0 08/2021, 09/01/2020 Dental X-Ray: Bitewings 03/08/2024 03/07/2023, 03/28 Depression Screening 03/19/2024 03/19/2023, 03/19/20 Hepatitis B Vaccines (2 of 2 - CpG 2-dose series) 06/30/2024 06/02/2024 Diabetes: Hemoglobin A1C 12/13/2024 024, 01/12/2024, 06/27/2023, Additional history exists Eye Exam 02/25/2025 02/25/2023, 02/11, 02/25/2023, Additional history exists SDOH Screening 06/01/2025 06/01/2024 Tobacco Screening 09/07/2025 09/07/2024 Dental X-Ray: Full Mouth 03/08/2026 023, 03/28/2017, 08/11/2012 Cervical Cancer Screening 03/19/2028 HPV/Cotest 03/19/2028 03/19/2023, 01/13/2019 Pap Smear 03/19/2028 03/19/2023 DTaP/Tdap/Td Vaccines (3 - Td or Tdap) 06/02/2034 06/02/2024, 09/08/2009 RSV Patients and Patients Aged 60 years or older (1 - 1-dose 75+ series) 2045 Pneumococcal Vaccine: 50+ Years Completed 02/26/2023, 08/15/2021 Zoster Vaccines Completed 04/28/2023, 02/26/2023 HIV Screening Completed 01/16/2024 Hepatitis C Screening Completed 01/16/2024 COVID-19 Vaccine Completed 05/06/2024, , 08/15/2021, Additional history exists Influenza Vaccine Completed 05/06/2024, , 08/15/2021, Additional history exists HIB Vaccines Aged Out No longer eligi ble based on patient's age to complete this topic HPV Vaccines Aged Out No longer eligi ble based on patient's age to complete this topic Hepatitis A Vaccines Aged Out No long er eligible based on patient's age to complete this topic IPV Vaccines Aged Out No longer eligi ble based on patient's age to complete this topic Meningococcal Vaccine Aged Out No arthur devonte eligible based on patient's age to complete this topic RSV under 20 months Aged Out No longe r eligible based on patient's age to complete this topic Rotavirus Vaccines Aged Out No longer eligible based on patient's age to complete this topic Goals Goal Patient Goal Type Associated Problems Recent Progress Patient-Stated? Author Blood Pressure < 140/90 Blood Pressure 116/75(2023 3:37 PM EST) Joel Bill Hemoglobin A1c < 7 Result Component 5.7( 3:46 PM EST) No Joel Corcoran Procedures Procedure Name Priority Date/Time Associated Diagnosis Comments POCT GLYCATED HEMOGLOBIN, TOTAL Routine 06/14/2024 3:46 PM EST Type 2 diabetes mellitus without complication, with long-term current use of insulin ([facility]) HEPATITIS C AB W/REFL TO HCV RNA, QN, PCR Routine 01/16/2024 10:25 AM EDT Routine screening for STI (sexually transmitted infection) HIV 1/2 ANTIGEN/ANTIBODY, FOURTH GENERATION W/RFL Routine 01/16/2024 10:25 AM EDT Routine screening for STI (sexually transmitted infection) PROPHYLAXIS - ADULT Routine 06/10/2023 8 :00 AM EST Dental calculus Periodontal disease HPV MRNA E6/E7 REFLEX TO HPV 16, 18/45 Routine 03/19/2023 11:44 AM EDT PAP SMEAR Routine 03/19/2023 11:44 AM EDT INTRAORAL - COMPLETE SERIES OF RADIOGRAPHIC IMAGES Routine 03/07/2023 10:00 AM EDT PERIODIC ORAL EVALUATION - ESTABLISHED PATIENT Routine 03/07/2023 10:00 AM EDT ALBUMIN, RANDOM URINE W/CREATININE Routine 02/27/2023 8:09 AM EDT Diabetes due to undrl condition w oth diabetic neuro comp ([facility]) LIPID PANEL, STANDARD Routine 02/27/2023 8:09 AM EDT Other acute pancreatitis, unspecified complication status Hypercholesterolemia MAMMOGRAM GENERIC Routine 01/18/2019 11: 52 AM EDT from Last 3 Months or Most Recently Relevant to Health Maintenance Results * POCT HGB A1C (06/14/2024 3:46 PM EST) [facility] Hemoglobin A1C 5.7 4.0 - 6.0 % QC Media Lot # [id number] Lot# Expiration Date [id number] Blood 06/14/2024 3:46 PM EST Magaly Quinones MD POINT OF CARE TEST ENTER/EDIT ORDERABLES Final Result * Hepatitis C Antibody with Reflex to HCV, RNA, Quantitative, Real-Time PCR (01/16/2024 10:25 AM EDT) [facility] Hepatitis C Antibody Nonreactive Nonreactive [facility] Comment:Antibodies to HCV no t detected; does not exclude early acuteHCV infection. Blood Venous blood specimen / Unknown 01/16/2024 10:25 AM EDT 01/16/2024 11:07 AM EDT Magaly Quinones MD LAB BLOOD ORDERABLES Final Res ult [facility] [address] [place] [phone] * HIV-1/2 Antigen and Antibodies, Fourth Generation, with Reflexes (01/16/2024 10:25 AM EDT) [facility] HIV AB/AG Nonreactive Nonreactive [facility] Comment:HIV-1 p24 Ag and/or HIV-1/HIV-2 Ab not detected.A test result that is nonreactive does not exclude thepossibility of exposure to or infection with HIV-1 and/orHIV-2. Nonreactive results in this assay for individualswith prior exposure to HIV-1 and/or HIV-2 may be due toantigen and antibody levels that are below the limit ofdetection of this assay.The eZono HIV Ag/Ab Combo assay result andsupplemental assay results should be interpreted inconjunction with the patient's clinical presentation,history and other laboratory results. If the results areinconsistent with clinical evidence, additional testing issuggested to confirm the result. Blood Venous blood specimen / Unknown 01/16/2024 10:25 AM EDT 01/16/2024 11:07 AM EDT Magaly Quinones MD LAB BLOOD ORDERABLES Final Res ult Performing Organization Address [facility] Co de Phone Number [facility] [address] [place] [phone] * HPV mRNA E6/E7 w/Reflex to HPV Genotypes 16, 18/45 (03/19/2023 11:44 AM EDT) HPV nRNA E6/E7 Not Detected Not Detected [facility] Comment:Methodology: Transcr iption-Mediated AmplificationThis assay detects E6/E7 viral messenger RNA (mRNA) from 14high-risk HPV types (16,18,31,33,35,39,45,51,52,56,58,59,66,68).Cervical sources are required for HPV testing.If a vaginal source from a patient who has had atotal hysterectomy with removal of cervix wassubmitted, please contact the testing laboratoryfor alternative testing options.For additional information, please refer [email or web address]/[email or web address](This link if provided for information/educational purposes only.)THIS TEST WAS PERFORMED AT:[facility] [place] [phone] ALARCON MD HPV mRNA E6/E7 [facility] HPV 16 [facility] HPV 18/45 RNA [facility] 03/19/2023 11:4 4 AM EDT 03/20/2023 9:15 AM EDT us Magaly Quinones MD LAB CYTOLOGY ORDERABLES Final Result Performing Organization Address [facility]/ZIP Co de Phone Number [facility] [address] [place] [phone] * Pap Smear (03/19/2023 11:44 AM EDT) 03/19/2023 11:4 4 AM EDT 03/20/2023 9:15 AM EDT [facility] - 03/31/2023 1:42 PM EDT ----- ------- Name: Theresa Beltre ?Age/Sex: 52/F ? : 1970 Unit#: [id number] ?? Attend Dr: Magaly Quinones ?Re03/19/23 ?Status: DEP REF ? Location: HO.HHCLNP ? Disch: ? ----- ------- SPEC : [id number] ?RECD: 03/20/23-914 ? STATUS: ??SOUT ? REQ NUM: [id number] ? HERBETR: 03/19/23-1144 ? SUBM DR: Magaly Quinones ? ENTERED: ??03/20/23-1113 ?SP TYPE: Pap Smr ?OTHR : ? ORDERED: ??Pap Smear ? Interpretation ?? Satisfactory for evaluation. ?? Negative for intraepithelial lesion or malignancy. ?HPV mRNA E6/E7: ?NOT DETECTED ? This assay detects E6/E7 viral messenger RNA (mRNA) from 14 high-risk HPV types (16, 18, ?? 31, 33, 35, 39, 45, 51, 52, 56, 58, 59, 66, 68) ?? HPV testing performed by [facility], [place], [place]. ??See reference laboratory ?? pion of the EMR for entire report. ?Clinical Information LMP: Postmenopausal Previous PAP test: Unknown date/findings ? Material Received ?? ThinPrep-Vaginal/Cervical ----- ------- Signed (signature on file) SAMI Pearson (ASCP) 03/31/23 1342 ? ----- ------- ? END OF REPORT ? Magaly Quinones MD LAB CYTOLOGY ORDERABLES Final Result Performing Organization Address [facility] de Phone Number [facility] [address] [place] [phone] [phone] * Albumin, Random Urine W/Creatinine (02/27/2023 8:09 AM EDT) Creatinine, Urine 33.23 mg/dL [facility] Microalbumin Urine <5.0 mg/L [facility] Microalbum Creatinine Ratio Ur TNP ug/mg cr [facility] Comment:Unable to calculate albumin/creatinine ratio due to lowmicroalbumin or creatinine result. Urine 02/27/2023 8:09 AM EDT 02/27/2023 11:39 AM EDT Magaly Quinones MD LAB URINE ORDERABLES Final Res ult Performing Organization Address [facility] de Phone Number [facility] [address] [place] [phone] * Lipid Panel, Standard (02/27/2023 8:09 AM EDT) Triglycerides 470 mg/dL [facility] Comment:Desirable Triglyceri de: less than 150 mg/dLBorderline High Triglyceride 150-199 mg/dLHigh Triglyceride: 200-499 mg/dLVery High Triglyceride: greater than or equal to 5OO mg/dL Cholesterol 212 mg/dL [facility] Comment:Desirable Cholestero l: less than 200 mg/dLBorderline High Cholesterol: 200-239 mg/dLHigh Cholesterol: greater than 239 mg/dL LDL Cholesterol Calculated TNP mg/dl [facility] Comment:Unable to calculate the LDL. The formula of Friedwald,Raymundo, and Froilan is only valid if the triglycerides areless than 400 mg/dl. HDL Cholesterol 42 mg/dL [facility] Comment:Desirable HDL: great er than 40 mg/dL Note: This HDL assay may give artificially low results in patients with liver disease. Blood Venous blood specimen / Unknown 02/27/2023 8:09 AM EDT 02/27/2023 11:10 AM EDT Magaly Quinones MD LAB BLOOD ORDERABLES Final Res ult [facility] [address] [place] [phone] * 3D UNI DIGITAL DX MAMMO 1 (01/18/2019 11:52 AM EDT) Anatomical Region Laterality Modality Breast Bilateral Mammography 01/18/2019 11:5 2 AM EDT Narrative 01/18/2019 11:54 AM EDT Refer to the Notes tab for result details [facility] Procedure: 3D UNI DIGITAL DX MAMMO 1 Procedure Note Provider, Dayami, - 10/05/2022 Refer to the Notes tab for result details [facility] Procedure: 3D UNI DIGITAL DX MAMMO 1 Historical Provider IMG BI PROCEDURES Final R esult from Last 3 Months or Most Recently Relevant to Health Maintenance Insurance * Guarantor: Theresa Beltre Account Type Relation to Patient Date of Phone Billing Address Personal/Family Self 1970 [address] [facility] [address] [place] [address] [facility] [place]ICA[facility] [place] [phone] * Guarantor: Theresa Beltre Account Type Relation to Patient Date of Phone Billing Address Personal/Family Self [address] [place] [address] * Guarantor: Theresa Beltre Account Type Relation to Patient Date of Phone Billing Address Personal/Family Self [address] [place] [address] * Guarantor: Theresa Beltre Account Type Relation to Patient Date of Phone Billing Address Personal/Family Self [address] [facility] [address] [place] [address] Care Teams Marine Firer Relationship Specialty Start Date End Date Magaly Quinones MD [address] [place] [address] PCP - General Family Medicine 03/06/21
--- OUTSIDE RECORDS SUMMARY | 2024-09-20 16:05 | XMS_ITS | Encounter Summary ---
Author Organization [employer] Address [address] [facility] 7t [place] [address] Care Team Providers Care Trash Hauler Name Role Phone Magaly Quinones MD Primary Care Provider [phone] Reason for Visit * Reason Comments Med Refill Encounter Details Date Type Department Care Team ([facility] Contact Info) Description 07/20/2023 Refill [facility] [address] [place], [place] [phone] Francesca Shirley MD [address] [place], [place] [phone] Social History Tobacco Use Types Packs/Day Years [...] 1:00 PM EDT Office Visit [facility] [address] [place], [place] [phone] Clarita Salgado, OD [address] [place], [place] [phone] documented as of this encounter Goals Goal [...] documented as of this encounter Care Teams Trash Hauler Relationship Specialty Start Date End Date Magaly Quinones MD [address] [place], [place] [phone] PCP - General Family Medicine 03/06/21 documented as of this encounter
--- OUTSIDE RECORDS SUMMARY | 2024-09-20 16:05 | XMS_ITS | Encounter Summary ---
Author Organization [employer] Address [address] [address] [place] [address] Care Team Providers Care Grooving Machine Operator Name Role Phone Magaly Quinones MD Primary Care Provider [phone] Reason for Visit * Reason Comments Med Refill Encounter Details Date Type Department Care Team ([facility] Contact Info) Description 09/18/2024 Refill [facility] [address] [place], [place] [phone] Magaly Quinones MD [address] [place], [place] [phone] Other chronic pain Social History Tobacco Use Types Packs/Day Years [...] Description 12/13/2024 1:00 PM EDT Office Visit [facility] [address] [place], [place] [phone] Clarita Salgado, OD [address] [place] [address] documented as of this encounter Goals Goal Patient Goal Type Associated Problems Recent Progress Patient-Stated? Author Blood Pressure < 140/90 Blood Pressure 116/75(2023 3:37 PM EST) No Joel Corcoran Hemoglobin A1c < 7 Result Component 5.7( 3:46 PM EST) No Joel Corcoran documented as of this encounter Visit Diagnoses Diagnosis Other chronic pain documented in this encounter Additional Health Concerns Assessment Noted Time PHQ-9 Depression Total Score: 0 03/19/20 23 11:21 AM EDT documented as of this encounter Care Teams Grooving Machine Operator Relationship Specialty Start Date End Date Magaly Quinones MD [address] [place] [address] PCP - General Family Medicine 03/06/21 documented as of this encounter
--- OUTSIDE RECORDS SUMMARY | 2024-09-20 16:05 | XMS_ITS | Encounter Summary ---
Author Organization [employer] Address [address] [place] [address] 7[address] [place] [address] Care Team Providers Care Tactical Debriefer Name Role Phone Magaly Quinones MD Primary Care Provider [phone] Reason for Referral * Consultation (Routine) - Authorized Specialty Diagnoses / Procedures Referred By Contyuli t Referred To Contact Pharmacy Diagnoses Type 2 diabetes mellitus without complication, with long-term current use of insulin (CMS/HCC) Essential hypertension Seizures (CMS/HCC) Magaly Quinones MD [address] [place] [address] Phone: tel: fax: Referral ID Status Reason Start Date Expiration Date Visits Requested Visits Authorized [id number] Authorized Continuity of Care 04/23/2024 04/23/2025 6 6 Encounter Details Date Type Department Care Team (Late st Contact Info) Description 04/23/2024 Orders Only [facility] [address] [place] [address] Magaly Quinones MD [address] [place], [place] [phone] Type 2 diabetes mellitus without complication, with long-term current use of insulin (CMS/HCC) (Primary Dx); Essential hypertension; Seizures (CMS/HCC) Social History Tobacco Use Types Packs/Day Years [...] Description 12/13/2024 1:00 PM EDT Office Visit [facility] [address] [place] [address] Damian, Clarita, OD [address] [place] [address] Scheduled Referrals Name Type Priority Associated Diagnoses Orde r Schedule Referral to Pharmacy [facility] Outpatient Referral Routine Type 2 diabetes mellitus without complication, with long-term current use of insulin (CMS/HCC) Essential hypertension Seizures (CMS/HCC) Ordered: 04/23/2024 documented as of this encounter Goals Goal Patient Goal Type Associated Problems Recent Progress Patient-Stated? Author Blood Pressure < 140/90 Blood Pressure 116/75(2023 3:37 PM EST) No Joel Corcoran Hemoglobin A1c < 7 Result Component 5.7( 4 3:46 PM EST) No Joel Corcoran documented as of this encounter Visit Diagnoses Diagnosis Type 2 diabetes mellitus without complication, with long-term current use of insulin ([facility])- Primary Essential hypertension Unspecified essential hypertension Seizures ([facility]) Other convulsions documented in this encounter Additional Health Concerns Assessment Noted Time PHQ-9 Depression Total Score: 0 03/19/20 23 11:21 AM EDT documented as of this encounter Care Teams Tactical Debriefer Relationship Specialty Start Date End Date Magaly Quinones MD [address] [place] [address] PCP - General Family Medicine 03/06/21 documented as of this encounter
--- OUTSIDE RECORDS SUMMARY | 2024-09-20 16:05 | XMS_ITS | Encounter Summary ---
Author Organization [employer] Address [address] [place] [address] Care Team Providers Care Integrated Logistics Programs Director Name Role Phone Magaly Quinones MD Primary Care Provider [phone] Encounter Details Date Type Department Care Team (Latest Contact Info) Description 09/06/2024 Travel Social History Tobacco Use Types Packs/Day Years [...] Description 12/13/2024 1:00 PM EDT Office Visit [facility] [address] [place] [address] DamianClarita miguel, OD [address] [place] [address] documented as of this encounter Goals Goal [...] documented as of this encounter Care Teams Integrated Logistics Programs Director Relationship Specialty Start Date End Date Magaly Quinones MD [address] [place] [address] PCP - General Family Medicine 03/06/21 documented as of this encounter
--- OUTSIDE RECORDS SUMMARY | 2024-09-20 16:05 | XMS_ITS | Encounter Summary ---
Author Organization [employer] Address [address] [facility] [address] [facility] [address] [place] [address] Care Team Providers Care Hearth Feeder Name Role Phone Magaly Quinones MD Primary Care Provider [phone] Encounter Details Date Type Department Care Team ([facility] st Contact Info) Description 07/10/2023 Abstract [facility] [address] [place] [address] Pravin Maradiagaaris [address] [place] [address] Social History Tobacco Use Types Packs/Day Years [...] the past 12 months, has t he [employer] oil or water company threatened to shut [...] 1:00 PM EDT Office Visit [facility] [address] [place], [place] [phone] Clarita Salgado, OD [address] [place] [address] documented as of this encounter Goals Goal [...] documented as of this encounter Care Teams Hearth Feeder Relationship Specialty Start Date End Date Magaly Quinones MD [address] [place] [address] PCP - General Family Medicine 03/06/21 documented as of this encounter
== END 2024-09-20 14:07 | disposition home or self-care (01) ==
LOC: HO.LAB 14:06
PROVIDERS: PCP General Practice; Visit Provider Psychiatry & Neurology Neurology
DX: G40.309 Generalized idiopathic epilepsy and epileptic syndromes, not intractable, without status epilepticus (principal)
CPT/HCPCS: 36415; 80185

== ENCOUNTER 2024-10-05 10:52 | Outpatient (REF) | payer MEDICAID, SELFPAY | END 2024-10-05 10:53 | disposition home or self-care (01) | LOC: HO.SH 10:52 | PROVIDERS: Visit Provider General Practice | DX: Z01.118 Encounter for examination of ears and hearing with other abnormal findings (principal); H90.3 Sensorineural hearing loss, bilateral | CPT/HCPCS: 92557; 92567 ==

== ENCOUNTER 2024-11-06 17:47 | Outpatient (REF) | payer MEDICAID, SELFPAY | END 2024-11-06 17:48 | disposition home or self-care (01) | LOC: HO.MRI 17:47 | PROVIDERS: PCP General Practice; Visit Provider Psychiatry & Neurology Neurology | DX: M54.16 Radiculopathy, lumbar region (principal) | CPT/HCPCS: 72148 ==

== ENCOUNTER → 2024-11-06 17:52 | Outpatient (BNV) | payer MEDICAID, SELFPAY | PROVIDERS: PCP General Practice; Visit Provider Radiology Diagnostic Radiology | DX: M54.16 Radiculopathy, lumbar region (principal); Q76.49 Other congenital malformations of spine, not associated with scoliosis; N83.291 Other ovarian cyst, right side | CPT/HCPCS: 72148 ==

== ENCOUNTER 2025-06-21 11:28 | Outpatient (REF) | payer MEDICAID, SELFPAY ==
[2025-06-21 14:24] LABS: Alanine Aminotransferase 15 U/L (0-31); Albumin Level 4.3 g/dL (3.5-5.0); Alkaline Phosphatase 62 U/L (39-117); Anion Gap 13 (12-20); Aspartate Amino Transferase 18 U/L (5-31); Blood Urea Nitrogen 23 mg/dL (9-16); Calcium 9.1 mg/dL (8.4-10.2); Carbon Dioxide 29 mmol/L (22-29); Chloride 105 mmol/L (96-108); Cholesterol 189 mg/dL (<200); Estimated Glomerular Filt Rate 56; HDL Cholesterol 55 mg/dL (>40); Potassium 4.9 mmol/L (3.3-5.1); Sodium 142 mmol/L (135-145); Total Protein 7.1 g/dL (6.5-8.0); Triglycerides 130 mg/dL (<150)
[2025-06-21 14:40] LABS: Microalbum/Creatinine Ratio Ur 6.7 ug/mg cr (<30)
== END 2025-06-21 11:29 | disposition home or self-care (01) ==
LOC: HO.HHCL 11:28
PROVIDERS: PCP General Practice; Visit Provider General Practice
DX: E11.9 Type 2 diabetes mellitus without complications (principal); Z79.4 Long term (current) use of insulin
CPT/HCPCS: 36415; 80053; 80061; 82043; 82570